=== PATIENT | female | born 1995 | race Caucasian/White ===

== ENCOUNTER → 2019-05-25 09:58 | Outpatient (CLI) | payer MEDICAID, SELFPAY | PROVIDERS: Visit Provider Obstetrics & Gynecology | DX: Z32.00 Encounter for pregnancy test, result unknown (principal) | CPT/HCPCS: 36415; 84702 ==

== ENCOUNTER → 2019-06-09 10:47 | Outpatient (CLI) | payer MEDICAID, SELFPAY ==
--- NOTE | 2019-06-09 10:48 | US_ITS ---
PROCEDURE: US OB TRANSVAGINAL CLINICAL INDICATION: US OB Dates COMPARISON: PTV US PELVIS-TRANSVAGINAL ONLY from 07/08/2016 FINDINGS: An intrauterine gestational sac is present with a pole with a crown-rump length of 2.81cm correlating to gestational age of 9weeks 5days. heart tones are present with an FHR of 179bpm. Yolk sac is noted. The uterus is retroverted. No adnexal mass evident. IMPRESSION: Live IUP at 9 weeks 5 days Estimated due date by Ultrasound is 01/07/2020 Dictated by: Oscar Rubio MD 06/09/2019 15:31 Electronically signed by Oscar Rubio MD in [facility] 06/09/2019 15:31
== END ==
PROVIDERS: PCP Nurse Practitioner Family; Visit Provider Obstetrics & Gynecology
DX: O26.841 Uterine size-date discrepancy, first trimester (principal)
CPT/HCPCS: 76817

== ENCOUNTER → 2019-06-15 10:56 | Outpatient (CLI) | payer MEDICAID, SELFPAY ==
[2019-06-15 11:28] LABS: Basophils % 0.3 % (0.1-2.0); Eosinophils # 0.1 K/mm3 (0.0-0.4); Eosinophils % 0.6 % (0.1-12.0); Hemoglobin 13.8 g/dL (12.2-16.2); Lymphocytes # 1.5 K/mm3 (0.7-4.5); Lymphocytes % 11.5 % (10-50); Mean Corpuscular HGB Conc 34.4 g/dL (31.8-35.4); Mean Corpuscular Hemoglobin 30.4 pg (27.0-31.2); Mean Corpuscular Volume 88.3 fl (81-99); Mean Platelet Volume 8.7 fl (7.4-10.4); Monocytes # 0.5 K/mm3 (0.1-1.0); Neutrophils # 10.6 K/mm3 (1.8-7.8); Neutrophils % 83.5 % (37.0-80.0); Platelet Count 239 K/mm3 (142-424); Red Blood Count 4.53 M/mm3 (4.20-5.40); Red Cell Distribution Width 12.6 % (11.5-17.5); White Blood Count 12.6 K/mm3 (4.8-10.8)
[2019-06-16 05:50] LABS: HIV Screen 4th Generation wRfx Non Reactive (Non Reactive)
[2019-06-16 10:31] LABS: Hepatitis B Surface Antigen Negative (Negative); Hepatitis C Antibody <0.1 s/co ratio (0.0-0.9)
[2019-06-16 13:58] LABS: Rapid Plasma Reagin Ab Titer Non Reactive (NonRea<1:1)
== END ==
PROVIDERS: Visit Provider Obstetrics & Gynecology
DX: Z34.90 Encounter for supervision of normal pregnancy, unspecified, unspecified trimester (principal)
CPT/HCPCS: 36415; 85025; 86592; 86703; 86762; 86850; 87340; 87380; G0432

== ENCOUNTER 2019-10-19 21:27 | Emergency (ER) | payer MEDICAID, SELFPAY ==
--- NOTE | 2019-10-19 21:27 | ECG_ITS ---
APPROVED REPORT Exam: Resting ECG HR:97 bpm ECG Measurements Heart Rate 97 AXES FL 146 P 52 QRSd 82 QRS 57 QT 332 T 39 QTc 421 <Conclusion> Normal sinus rhythm Normal ECG Electronically signed by : Gautam Pearce, 10/22/2019 04:52:39
[2019-10-19 21:28] VITALS: BP 167/112; PULSE 110; RESP 16; TEMP 37.1; O2SAT 99; BMI 22.6
--- NOTE | 2019-10-19 21:28 | PC.NURSE ---
heart rate 151 via doppler
--- NOTE | 2019-10-19 21:47 | CT_ITS ---
PROCEDURE: CT HEAD/BRAIN WO CON CLINICAL INDICATION: seizure activity COMPARISON: CT HEAD/BRAIN WO CON from 02/06/2019 TECHNIQUE: Axial images obtained. All CT scans at the facility use one or more dose reduction, viz: automated exposure control, ma/kV adjustment per patient size (including targeted exams where dose is matched to indication, i.e. head), or iterative reconstruction technique. FINDINGS: No midline shift, mass effect, intracranial hemorrhage, hydrocephalus, or extra-axial fluid collection is evident. There is mild mucosal thickening of the ethmoid sinuses. The calvarium has an unremarkable appearance. No mastoid effusion. No sinus air-fluid level. IMPRESSION: No acute intracranial finding Dictated by: Oscar Rubio MD 10/20/2019 08:54 Electronically signed by Oscar Rubio MD in [facility] 10/20/2019 08:54
[2019-10-19 21:52] LABS: Appearance,Urine CLEAR (Clear); Bilirubin,Urine Negative (Negative); Blood, Urine Negative (Negative); Color,Urine YELLOW (Yellow); Glucose,Urine (UA) Negative (Negative); Ketones,Urine Negative (Negative); Leukocyte Esterase,Urine 1+ (Negative); Microscopic, Urine URINE MICROSCOPIC (MICROSCOPIC); Nitrate,Urine Negative (Negative); Protein,Urine Negative (Negative)
[2019-10-19 21:56] LABS: Bacteria,Urine Trace /lpf; Squamous Epithelial Cell,Urine Occasional #/hpf (0-5)
[2019-10-19 21:56] LABS: Chloride 106 mmol/L (98-107); Potassium 3.5 mmoL/L (3.5-5.1); Sodium 136 mmol/L (136-145)
[2019-10-19 21:59] LABS: Alanine Aminotransferase 11 U/L (12-78); Albumin Level 3.5 g/dl (3.5-5.0); Albumin/Globulin Ratio 1.1 (1.1-1.8); Alkaline Phosphatase 59 U/L (38-126); Anion Gap 11.5 mEq/L (5-15); Aspartate Amino Transferase 18 U/L (14-36); Bilirubin,Total 0.4 mg/dl (0.2-1.3); Blood Urea Nitrogen 9 mg/dl (7-17); Carbon Dioxide 22 mmol/L (22.0-30.0); Creatinine Clearance Estimated 149 mL/min (50-200); Estimated Glomerular Filt Rate 126 ml/min (>60); GFR (African American) 153 ML/MIN (>60); Globulin 3.1 g/dL (1.3-3.2); Total Protein,Serum 6.6 g/dl (6.3-8.2)
[2019-10-19 22:00] LABS: Calcium 8.9 mg/dl (8.4-10.2); Glucose 80 mg/dl (74-100); Lactic Acid 0.9 mmol/L (0.7-2.1)
[2019-10-19 22:04] LABS: Benzodiazepines Screen,Urine Negative ng/ml (<200)
[2019-10-19 22:04] LABS: Basophils % 0.4 % (0.1-2.0); Eosinophils # 0.2 K/mm3 (0.0-0.4); Eosinophils % 1.2 % (0.1-12.0); Hematocrit 32.7 % (37.0-47.0); Hemoglobin 11.3 g/dL (12.2-16.2); Lymphocytes # 2.5 K/mm3 (0.7-4.5); Lymphocytes % 19.8 % (10-50); Mean Corpuscular HGB Conc 34.7 g/dL (31.8-35.4); Mean Corpuscular Hemoglobin 30.5 pg (27.0-31.2); Mean Corpuscular Volume 88.1 fl (81-99); Mean Platelet Volume 8.1 fl (7.4-10.4); Monocytes # 0.6 K/mm3 (0.1-1.0); Monocytes % 4.6 % (1.7-9.3); Neutrophils # 9.5 K/mm3 (1.8-7.8); Neutrophils % 74.1 % (37.0-80.0); Platelet Count 226 K/mm3 (142-424); White Blood Count 12.8 K/mm3 (4.8-10.8)
[2019-10-19 22:05] LABS: Amphetamine/Metha Screen,Urine Negative ng/ml (<1000)
[2019-10-19 22:06] LABS: Barbiturates Screen,Urine Negative ng/ml (<200)
[2019-10-19 22:07] LABS: Cannabinoid Screen,Urine Negative ng/ml (<50); Cocaine Screen,Urine Negative ng/ml (<300)
[2019-10-19 22:08] LABS: Methadone Screen,Urine Negative ng/ml (<300); Opiate Screen,Urine Negative ng/ml (<300)
[2019-10-19 22:09] LABS: Phencyclidine Screen,Urine Negative ng/ml (<25)
[2019-10-19 22:21] LABS: Troponin I < 0.01 ng/ml (0.00-0.034)
[2019-10-19 22:23] VITALS: BP 129/63; PULSE 98; RESP 18; O2SAT 95
[2019-10-19 22:31] LABS: Valproic Acid, (Depakene) < 10.0 ug/ml (50-100)
--- NOTE | 2019-10-19 22:35 | HMH.EDSEIZ ---
ED Disposition Clinical Impression: Epileptic seizure Qualifiers: Epilepsy type: unspecified Intractability: not intractable Status epilepticus: without status epilepticus Qualified Code(s): G40.909 - Epilepsy, unspecified, not intractable, without status epilepticus Qualifiers: Weeks of gestation: 36 weeks Qualified Code(s): Z3A.36 - 36 weeks gestation of Disposition: Home, Self-Care Condition on Discharge: Good Instructions: DI for Seizure Disorder -- Adult Additional Instructions: call ob and pcp in am Referrals: Provider,Referral, [Primary Care Provider] - - Critical Care Critical Care Time: No Attestation: On 10/19/19, the high probability of a clinically significant, sudden or life threatening deterioration of the following system(s) required my full and direct attention, intervention and personal management. The time I documented below is in addition to time spent performing reported procedures but includes the following listed in this critical care notation. Medical Decision Making - Medical Records Medical records reviewed: Yes: I reviewed the patient's medical records. - Jassi Inquiry Pt receiving controlled substance: No Vital Signs: 10/19/19 21:28 10/19/19 22:23 10/19/19 22:42 Temperature 98.7 F Temperature Source Oral Pulse Rate [Left Radial] 110 H 98 H 83 Respiratory Rate 16 18 18 Blood Pressure [Right Arm] 167/112 H 129/63 130/65 Blood Pressure Mean [Right Arm] 130 85 86 Blood Pressure Source [Right Arm] Automatic Cuff Blood Pressure Position [Right Arm] Sitting 02 Sat by Pulse Oximetry 99 95 100 Oxygen Delivery Method Room Air Room Air Room Air - Lab Data Lab results reviewed: Yes: I reviewed the patient's lab results. Lab Results 10/19/19 21:30: WBC 12.8 H, RBC 3.70 L, Hgb 11.3 L, Hct 32.7 L, MCV 88.1, MCH 30.5, MCHC 34.7, RDW 13.0, Plt Count 226, MPV 8.1, Neut % (Auto) 74.1, Lymph % (Auto) 19.8, [place] % (Auto) 4.6, Eos % (Auto) 1.2, Baso % (Auto) 0.4, Neut # (Auto) 9.5 H, Lymph # (Auto) 2.5, [place] # (Auto) 0.6, Eos # (Auto) 0.2, Baso # (Auto) 0.0 10/19/19 21:30: Sodium 136, Potassium 3.5, Chloride 106, Carbon Dioxide 22, Anion Gap 11.5, BUN 9, Creatinine 0.60, Estimated Creat Clear 149, Estimated GFR 126, Est GFR ( Amer) 153, Glucose 80, Calcium 8.9, Total Bilirubin 0.4, AST 18, ALT 11 L, Alkaline Phosphatase 59, Troponin I < 0.01, Total Protein 6.6, Albumin 3.5, Globulin 3.1, Albumin/Globulin Ratio 1.1 10/19/19 21:30: Lactate 0.9 10/19/19 21:30: Total Valproic Acid < 10.0 L 10/19/19 21:38: Urine Color Yellow, Urine Appearance Clear, Urine pH 6.0, Ur Specific [place] 1.020, Urine Protein Negative, Urine Glucose (UA) Negative, Urine Ketones Negative, Urine Blood Negative, Urine Nitrate Negative, Urine Bilirubin Negative, Urine Urobilinogen 1.0, Ur Leukocyte Esterase 1+ A, Urine WBC 3-5, Ur Squamous Epith Cells Occasional, Urine Bacteria Trace 10/19/19 21:38: Urine Opiates Screen Negative, Urine Methadone Screen Negative, Ur Barbituates Screen Negative, Ur Phencyclidine Scrn Negative, Ur Amphetamines Screen Negative, U Benzodiazepines Scrn Negative, Urine Cocaine Screen Negative, U Marijuana (THC) Screen Negative Result diagrams: 10/19/19 21:30 10/19/19 21:30 Orders (Tests/Meds): ED MEDICATIONS Generic Name Dose Route Start Last Admin Trade Name Norman PRN Reason Stop Dose Admin Sodium Chloride 1,000 mls @ 999 mls/hr 10/19/19 22:00 10/19/19 22:20 Sod Chlor 0.9% 1000ml Bag IV 10/19/19 23:00 999 mls/hr .Q1H1M [place] Administration ORDERS Category Date Time Status CT head/brain wo con Stat Cat Scan 10/19/19 21:47 Taken Carbamazepine (Tegretol) Stat Lab 10/19/19 21:30 Received Troponin I Q3H Lab 10/20/19 01:00 Ordered Troponin I Q3H Lab 10/20/19 04:00 Ordered Blood Culture Stat Micro 10/19/19 21:30 Received Urine Culture Stat Micro 10/19/19 21:38 Received - CT Data CT Scan: Head Time Received: 22:[address] Reviewed
[2019-10-19 22:42] VITALS: BP 130/65; PULSE 83; RESP 18; O2SAT 100
[2019-10-19 22:56] LABS: Carbamazepine (Tegretol) < 3.0 ug/ml (4.0-12.0)
[2019-10-19 23:09] VITALS: BP 132/89; PULSE 92; RESP 16; TEMP 36.4; O2SAT 97
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
== END 2019-10-19 23:14 | disposition home or self-care (01) ==
PROVIDERS: Emergency Provider Emergency Medicine
DX: G40.909 Epilepsy, unspecified, not intractable, without status epilepticus (principal); Z3A.36 36 weeks gestation of pregnancy
CPT/HCPCS: 70450; 80053; 80156; 80164; 80305; 81001; 83605; 84484; 85025; 87040; 87086; 87088; 87186; 93005; 96365; 99284

== ENCOUNTER 2022-09-16 14:03 | Emergency (ER) | payer OTHER, MEDICAID, SELFPAY ==
[2022-09-16 14:03] VITALS: BP 139/84; PULSE 125; RESP 17; TEMP 36.9; O2SAT 100; BMI 20.7
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
[2022-09-16 15:58] VITALS: BP 113/77; PULSE 104; RESP 19; TEMP 36.9; O2SAT 99
== END 2022-09-16 15:59 | disposition home or self-care (01) ==
PROVIDERS: Emergency Provider Emergency Medicine; PCP Nurse Practitioner Family
DX: S16.1XXA Strain of muscle, fascia and tendon at neck level, initial encounter (principal); R51.9 Headache, unspecified; R42 Dizziness and giddiness; Z87.891 Personal history of nicotine dependence; V47.0XXA Car driver injured in collision with fixed or stationary object in nontraffic accident, initial encounter
CPT/HCPCS: 72040; 96374; 99284

== ENCOUNTER 2022-09-19 12:28 | Emergency (ER) | payer MEDICAID, SELFPAY ==
[2022-09-19 12:35] VITALS: BP 144/91; PULSE 88; RESP 18; O2SAT 100; BMI 20.7
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
[2022-09-19 12:53] LABS: Appearance,Urine CLEAR (Clear); Bilirubin,Urine Negative (Negative); Blood, Urine TRACE-I (Negative); Color,Urine YELLOW (Yellow); Glucose,Urine (UA) Negative (Negative); Ketones,Urine Negative (Negative); Leukocyte Esterase,Urine 2+ (Negative); Microscopic, Urine URINE MICROSCOPIC (MICROSCOPIC); Nitrate,Urine POSITIVE (Negative); PH,Urine 5.5 (5.0-8.5); Protein,Urine TRACE (Negative); Specific Gravity, Urine 1.025 (1.005-1.030); Urobilinogen,Urine 0.2 EU/dl (0.2)
[2022-09-19 13:00] VITALS: BP 143/95; PULSE 82; O2SAT 100
[2022-09-19 13:05] LABS: Bacteria,Urine 1+ /lpf
[2022-09-19 13:18] LABS: Basophils % 0.3 % (0.1-2.0); Eosinophils # 0.1 K/mm3 (0.0-0.4); Eosinophils % 1.2 % (0.1-12.0); Hematocrit 36.4 % (37.0-47.0); Hemoglobin 12.2 g/dL (12.2-16.2); Lymphocytes # 1.7 K/mm3 (0.7-4.5); Lymphocytes % 17.6 % (10-50); Mean Corpuscular HGB Conc 33.4 g/dL (31.8-35.4); Mean Corpuscular Hemoglobin 29.7 pg (27.0-31.2); Mean Platelet Volume 8.2 fl (7.4-10.4); Monocytes # 0.6 K/mm3 (0.1-1.0); Monocytes % 6.5 % (1.7-9.3); Neutrophils # 7.2 K/mm3 (1.8-7.8); Neutrophils % 74.4 % (37.0-80.0); Platelet Count 384 K/mm3 (142-424); Red Blood Count 4.09 M/mm3 (4.20-5.40); Red Cell Distribution Width 12.7 % (11.5-17.5); White Blood Count 9.6 K/mm3 (4.8-10.8)
[2022-09-19 13:35] LABS: Chloride 100 mmol/L (98-107); Sodium 139 mmol/L (136-145)
--- NOTE | 2022-09-19 13:35 | PC.NURSE ---
rounded on pt nothing needed at this time family at bedside
[2022-09-19 13:36] LABS: HCG Qualitative, Serum Negative (Negative)
[2022-09-19 13:37] LABS: Alanine Aminotransferase 20 U/L (12-78); Aspartate Amino Transferase 27 U/L (14-36); Bilirubin,Total 0.3 mg/dl (0.2-1.3); Blood Urea Nitrogen 10 mg/dl (7-17); Creatinine Clearance Estimated 109 mL/min (50-200); Estimated Glomerular Filt Rate 88 ml/min (>60); GFR (African American) 107 ML/MIN (>60)
[2022-09-19 13:38] LABS: Albumin Level 4.2 g/dl (3.5-5.0); Albumin/Globulin Ratio 1.2 (1.1-1.8); Alkaline Phosphatase 75 U/L (38-126); Carbon Dioxide 28 mmol/L (22.0-30.0); Globulin 3.6 g/dL (1.3-3.2); Glucose 71 mg/dl (74-100); Lipase 24 U/L (23-300); Total Protein,Serum 7.8 g/dl (6.3-8.2)
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
[2022-09-19 15:28] VITALS: BP 138/72; PULSE 82; RESP 18; TEMP 36.7; O2SAT 97
== END 2022-09-19 15:36 | disposition home or self-care (01) ==
PROVIDERS: Emergency Provider Emergency Medicine; PCP Nurse Practitioner Family
DX: N12 Tubulo-interstitial nephritis, not specified as acute or chronic (principal); R10.10 Upper abdominal pain, unspecified; R11.2 Nausea with vomiting, unspecified
CPT/HCPCS: 74177; 80053; 81001; 83690; 84703; 85025; 87086; 87088; 87186; 96374; 99284; 99285; J0696; Q9967

== ENCOUNTER 2023-09-03 20:14 | Emergency (ER) | payer MEDICAID, SELFPAY ==
[2023-09-03 21:21] VITALS: BP 144/94; PULSE 100; RESP 18; TEMP 36.8; O2SAT 100; BMI 22.6
--- OUTSIDE RECORDS SUMMARY | 2023-09-03 21:31 | XMS_ITS | Continuity of Care Document ---
Author Name Unknown Organization [facility] Address [address] [place] [address]- Care Team Providers Care Psychology Department Chair Name Role Phone PHY, NOT LISTED Primary Care Physician Unavailab le Encounter [facility] [id number] Date(s): 02/10/23 - 02/10/23 [facility] [address] [place] [address]- [place] Encounter Diagnosis UTI (urinary tract infection)(Discharge Diagnosis) - 02/10/23 Pyelonephritis, acute(Discharge Diagnosis) - 02/10/23 Discharge Disposition: OP Self Care or Home Attending Physician: JAY HYATT MD-EMR Admitting Physician: JAY HYATT MD-EMR Referring Physician: TAMERA, SELF REFERRED Allergies, Adverse Reactions, Alerts Substance Reaction Severity Status erythromycin Active Assessment and Plan Extracted from: Title:Addendum *ED Author:CONSTANCE FARIAS MD-EMR Date:02/10/23 Basic Information Addendum: Pertinent history: Follow up on imaging results. Reexamination/ Reevaluation Notes: Attending did read x-ray read and felt abscess is either gone or small bowel scarring from it no abscess present now patient does have concern for some Cesario patient with no nausea vomiting still having some pain so we will give small pain medicine understands importance of returning immediately if unable to take oral liquids or antibiotics or if starts running a fever went ahead and gave IV Rocephin here and send out cefdinir Zofran and meloxicam for the pain understands precautions to return her and her significant other. Impression and Plan Diagnosis UTI (urinary tract infection) - Discharge, Medical Pyelonephritis, acute - Discharge, Emergency medicine, Medical Plan Condition: Stable. Disposition: Discharged Admit/Transfer/Discharge: Discharge (Order): Start: 02/10/2023 23:25 EDT, Discharge to: Home. Prescriptions: Prescription [facility]: [facility] 5 mg-325 mg oral tablet (Prescribe): 1 Tab, Oral, Q6H, PRN: for pain, 12 Tab, 0 Refill(s) Zofran ODT 4 mg oral tablet, disintegrating (Prescribe): 4 mg, 1 Tab, Oral, TID, 12 Tab, 0 Refill(s). Patient was given the following educational materials: Urinary Tract Infection, Adult, Pyelonephritis, Adult, [id number]. Follow up with: [facility] - Primary Care Referral Line Within 2 to 3 days Call for follow up appointment; NOT LISTED TAMERA Within 2 to 3 days; TUAN WEBB Within 2 to 3 days; f/u pmd as needed; return to ed for worsening symptoms; take medication as prescribed; Your blood pressure is elevated today f/u with pmd In 2 days 02/12/2023. Counseled: Patient, Regarding diagnostic results, Regarding prescription, Pre-hypertension/Hypertension: The patient has been informed that they may have pre-hypertension or Hypertension based on a blood pressure reading in the emergency department. I recommend that the patient call the primary care provider listed on their discharge instructions or a physician of their choice this week to arrange follow up for further evaluation of possible pre-hypertension or Hypertension.. Notes: With use of voice recognized system such as Hylete, many words are nonsensical and jumbled, I try to correct them when I see them but still some are missed. Addendum Teaching-Supervisory Addendum-Brief Vital signs: Basic Oxygen Information 02/10/2023 22:58 EDT Hand off Report Received From La Cox RN Handoff Reported to Lynnette Sifuentes, James SCHMIDT [facility] Handoff Method Bedside/Face to face Valuables[employer]ongings Inventoried/Reviewed N/A Handoff and Chart Check Reviewed All Active Orders, Reviewed Overdue Tasks, Reviewed Pending Diagnostics (Labs & Radiology), Reviewed Level of Care and Code Status, Patient Location Updated as Appropriate, Discussed Patient and Family Centered Care, Discussed Notable Assessment Findings and Results Nursing Handoff Form Nursing Handoff Form Nursing Notes Nursing Handoff 02/10/2023 22:57 EDT Hand off Report Received From La Cox RN Handoff Reported to Lynnette Sifuentes, Agency RN [facility] Handoff Method Bedside/Face to face Shantals[employer]zel Inventoried/Reviewed N/A Handoff and Chart Check Reviewed All Active Orders, Reviewed Overdue Tasks, Reviewed Pending Diagnostics (Labs & Radiology), Reviewed Level of Care and Code Status, Patient Location Updated as Appropriate, Discussed Patient and Family Centered Care, Discussed Notable Assessment Findings and Results Nursing Handoff Form Nursing Handoff Form Nursing Notes Nursing Handoff 02/10/2023 22:48 EDT MEWS Score 2 MEWS Change 2 02/10/2023 22:00 EDT Elisha Motor Response Obey commands Leisha Verbal Response Oriented Franklin Eye Opening Response Spontaneous Elisha Coma Score 15 Peripheral Pulse Rate 86 bpm Heart Rate Monitored 85 bpm Respiratory Rate 24 Breaths/Min HI Oxygen Saturation 99 % 02/10/2023 21:26 EDT ibuprofen 600 mg mg 02/10/2023 21:00 EDT Peripheral Pulse Rate 99 bpm Heart Rate Monitored 95 bpm Respiratory Rate 20 Breaths/Min Oxygen Saturation 100 % 02/10/2023 20:50 EDT cefTRIAXone 2 Gram Gram 02/10/2023 20:[address] Abdomen Pelvis W CT Abdomen Pelvis W 02/10/2023 20:40 EDT iopamidol 100 mL mL 02/10/2023 20:29 EDT Pain Assessment Follow-up assessment Pain Improved by Intervention Yes SIRS Indicator Signs/Symptms Present/New Heart Rate GREATER than 90 beats per minute, WBC GREATER than 12,000/??L Two or More Signs/Symptms SIRS Indicator Yes (Two or more signs and symptoms SIRS Indicators) Suspected or Confirmed Infection Urinary tract infection Positive for History of Infection Yes Sepsis Screen is Positive Yes Organ Dysfunction Vital Signs/Labs Organ Dysfunction Vital Signs/Labs SIRS Screening Vital Signs/Labs SIRS Screening Vital Signs/Labs Pain Assessment-Text Pain Assessment Sepsis Screening Tool-Text Sepsis Screening Tool 02/10/2023 20:28 EDT MEWS Score 0 MEWS Change 0 02/10/2023 20:26 EDT Estimated Creatinine Clearance 87.44 mL/Min 02/10/2023 20:25 EDT Cardiovascular Symptoms None Skin Description Dry Skin Temperature Warm Genitourinary Symptoms Flank Pain - Right Side, Hematuria Urine Description Cloudy Urine Color Yellow Level of Consciousness Alert, Awake Orientation Oriented x 4 Neurological Symptoms None Affect/Behavior Appropriate, Calm, Cooperative Elisha Motor Response Obey commands Franklin Verbal Response Oriented Elisha Eye Opening Response Spontaneous Franklin Coma Score 15 Shift Summary Note Shift Summary Note Respiratory Symptoms No Respiratory Symptoms (No cough or shortness of breath) Respiratory Pattern Description Regular Respiration Description Even and Unlabored Oxygen Therapy Mode Room air ED Assessment Form ED Assessment Form ED Nursing Record ED Assessment 02/10/2023 20:20 EDT ED Physician Notes Abdominal pain 02/10/2023 20:19 EDT MEWS Change 0 02/10/2023 20:19 EDT MEWS Score 0 02/10/2023 20:18 EDT 02/10/2023 19:45 Over the needle Antecubital Right 20 gauge Peripheral Catheter/Needle Length: 1 Inch Peripheral IV Activity: Blood drawn with insertion, Saline lock, Start Peripheral IV Inserted by: La Cox RN Peripheral IV Number of Attempts: 1 Peripheral IV Skin Preparation: Chlorhexadine Peripheral IV Site Assessment: IV site WDL IV Site/Line Care: Secured with tape IV Dressing Activity: Applied Peripheral IV Dressing: Antimicrobial patch, Occlusive Peripheral IV Dressing Condition: Dry, Intact 02/10/2023 20:17 EDT POC HCG Wholeblood Completed Yes POC Lactic Acid Completed Yes Site of Blood Draw Specimen by Nursing IV insertion Site of Blood Draw Specimen by Nursing IV insertion ED HCG Wholeblood Form ED HCG Wholeblood Form ED POC Lactic Acid Form ED POC Lactic Acid Form ED Record ED POC - HCG Wholeblood ED Record ED POC - Lactic Acid 02/10/2023 20:03 EDT Pain Intensity 10 HYDROmorphone 0.5 mg mg ondansetron 4 mg mg Sodium Chloride 0.9% 1,000 mL mL 02/10/2023 20:00 EDT Urine Type. U CleanCatch Urine Color Yellow Urine Appearance SL CLOUDY Urine Specific [place] 1.021 Urine pH Dipstick 6 Urine Leukocyte Esterase Large Urine Nitrite Positive mg/dL Urine Protein Dipstick 30 mg/dL mg/dL Urine Glucose Dipstick Normal mg/dL Urine Ketones Dipstick Negative mg/dL Urine Urobilinogen Dipstick <2.0 mg/dL Urine Bilirubin Dipstick Negative mg/dL Urine Blood Dipstick Trace mg/dL Ur RBC 15-29 Ur WBC 50+ Ur Bacteria 2+ Ur Mucous Present Ur Squamous Epithelial Cells 0-4 Peripheral Pulse Rate 78 bpm Heart Rate Monitored 77 bpm Respiratory Rate 16 Breaths/Min Systolic Blood Pressure 119 mmHg Diastolic Blood Pressure 70 mmHg Mean Arterial Pressure (MAP) 86 mmHg Mean Arterial Pressure (MAP)-BMDI 81 Oxygen Saturation 100 % Oxygen Therapy Mode Room air 02/10/2023 19:58 EDT B-HCG WB Quant POC <5 mmol/L NA B-HCG WB Interp POC Negative Device SN [id number] Meat Grader [id number] 02/10/2023 19:54 EDT Sodium Level 135 mmol/L LOW Potassium Level 3.4 mmol/L LOW Chloride Level 102 mmol/L Carbon Dioxide Level 28.0 mmol/L Anion Gap 5.0 Glucose Level 90 mg/dL Blood Urea Nitrogen 11 mg/dL CREATININE 0.92 mg/dL eGFR 89 mL/min/1.73m2 Bun/Creatinine 12.0 Calcium Level 9.6 mg/dL Protein Total 7.7 Gram/dL Albumin Level 4.8 Gram/dL Globulin 3 NA A/G Ratio 1.7 Bilirubin Total 0.90 mg/dL Alk Phos 111 Units/Liter HI AST 45 Units/Liter HI ALT 38 Units/Liter HI Lactic Acid POC 0.65 mmol/L LOW WBC 17.0 x10(3)/uL HI RBC 4.50 x10(6)/uL Hgb 13.4 Gram/dL Hct 39.4 % MCV 87.6 fL MCH 29.6 pg MCHC 33.9 Gram/dL Platelet Count 243 x10(3)/uL MPV 9.4 fL RDW 13.8 % Device SN [id number] Meat Grader [id number] 02/10/2023 19:34 EDT Nurse Collect Order Detail 3.00 02/10/2023 19:34 EDT Nurse Collect Order Detail 3.00 Nurse Collect Order Detail 3.00 02/10/2023 19:33 EDT Nurse Collect Order Detail 3.00 Nurse Collect Order Detail 3.00 Nurse Collect Order Detail 3.00 02/10/2023 19:33 EDT Nurse Collect Order Detail 3.00 Nurse Collect Order Detail 3.00 Nurse Collect Order Detail 3.00 02/10/2023 19:33 EDT Nurse Collect Order Detail 3.00 02/10/2023 19:33 EDT Nurse Collect Order Detail 3.00 02/10/2023 19:31 EDT Nurse Collect Order Detail 3.00 02/10/2023 19:31 EDT Nurse Collect Order Detail 3.00 02/10/2023 19:31 EDT Nurse Collect Order Detail 3.00 02/10/2023 19:31 EDT Nurse Collect Order Detail 3.00 Nurse Collect Order Detail 3.00 02/10/2023 19:30 EDT Nurse Collect Order Detail 3.00 02/10/2023 19:29 EDT Consent Forms Consent Forms 02/10/2023 19:28 EDT [facility] Exclusion Criteria None of the above JHFRAT Fall Age Under 60 years FR Fall History No falls within 6 months before admission [facility] Elimination, Bowel and Urine None of the below FR Fall Medications No high fall risk drugs [facility] Fall Patient Care Equipment None present [facility] Fall Mobility None of the below FR Fall Cognition None of the below FR Fall Risk Score 0 [facility] Fall Risk Level 0-5 Low Risk HDFS Age Adult [place] Fall Interventions Adequate lighting, Bed in low position, Call device within reach, Fall prevention handout/education per facility policy, Frequent orientation to call device, Frequent orientation to surroundings, Hourly comfort/safety rounds, Non-Slip footwear, Personal items within reach, Reinforced to call for assistance before getting out of bed, Room free of clutter/spills, Wheels locked, Wires/Cords secured Safety Checks 2 Siderails up, Bed in low position/brakes locked, Call light within reach of patient, Hearing aide within reach, ID band on and verified, Non-skid footwear, Room clear of debris, Tray table within reach, Wheels locked Current Home Treatments None Infectious Disease History None Preferred Language Libyan Preferred Communication Mode Verbal DASA Situational Aggression Indicators None DASA Score 0 DASA Risk Level Low risk DV_Pt appropriate for screening Yes Do You Feel Unsafe in Your Current Declines to discuss Is There a Partner From a Previous Relationship Declines to discuss Have You Been Hit, Kicked, Punched Declines to discuss Injuries Related Partner Violence Declines to discuss Arise to Safety Indicators 0 Possible Signs of Human Trafficking No Teaching Method Demonstration, Explanation Ed-Plan of Care Verbalizes understanding SN - Allergies - Allergies Reviewed Yes Information Obtained From Patient Tetanus Immunization Unknown Covid Vaccine Series Completed Unable to assess Sex Female DASA Screening for VIP Form DASA Screening for VIP Form ED Triage Form ED Triage Form Gender Identity Female Influenza Immunization, Current Season Unknown Pneumonia Immunization Received Unknown Prev Vaccines from Immunization Schedule Previous Vaccines from Immunization Schedule Preferred Pronouns she/ her/ hers ED Nursing Record ED History & Screenings DASA Screening for VIP - Text DASA (Dynamic Appraisal of Situational Aggression) Nursing (sensitive) ED Domestic Violence Screening 02/10/2023 19:05 EDT MEWS Score 0 02/10/2023 19:05 EDT Estimated Creatinine Clearance 101.83 mL/Min 02/10/2023 19:00 EDT Thoughts of Hurting/Killing Someone No Transported to ED by Walk in Airway Assessment Open Skin Description Dry Skin Temperature Warm Triage BP Format SBP/DBP Triage Interventions None Tracking Acuity 3 - Urgent Family Contacted No Method of Triage Triage Transfer Patient No Is there a weapon in your possession No Received medications JAW SKINNER to ED No Triage Date/Time 02/10/2023 19:00 Height/Length, HONDURAN (ft) 5 ft Height/Length HONDURAN 5.98 Inch CLINICALHEIGHT 167.59 cm Weight Source, ED Standing scale Weight METRIC kg 67.0 kg CLINICALWEIGHT 67 kg Body Surface Area (BSA) 1.76 m2 Body Mass Index 23.9 kg/m2 [place] Body Weight 59 kg Chief Complaint Right sided flank pain radiating into lower back and blood in urine x3 days; Experiencing Infectious Disease Symptoms No symptoms Travel Outside [place] Within Last 30 Days No COVID 19: Patient has symptoms No Recent Exposure to Communicable Disease No Tuberculosis Symptoms No current symptoms Accompanied by Unaccompanied Elisha Motor Response Obey commands Elisha Verbal Response Oriented Franklin Eye Opening Response Spontaneous Franklin Coma Score 15 Status Patient denies in Last Year No Pain Intensity 10 Preferred Language Libyan Need Lab Labels Now No CSSRS Appropriate for Screening Yes CSSRS Wish to be No CSSRS Suicidal Thoughts No CSSRS Suicide Behavior Question No CSSRS Risk Score 0 CSSRS Risk Level No present indicators Respirations Unlabored SIRS Indicator Signs/Symptms Present/New None Two or More Signs/Symptms SIRS Indicator No Suspected or Confirmed Infection None Positive for History of Infection No Temperature Source Oral Temperature, Fahrenheit 97.8 Deg F Clinical Temperature, C 36.6 Deg C Peripheral Pulse Rate 95 bpm Respiratory Rate 16 Breaths/Min Systolic Blood Pressure 119 mmHg Diastolic Blood Pressure 82 mmHg Oxygen Saturation 100 % Oxygen Therapy Mode Room air SN - Allergies - Allergies Reviewed Yes SN - Allergies - Allergies Reviewed Yes Information Obtained From Patient Treatments Prior to Arrival None ED Triage Form ED Triage Form Mode of Arrival PAT Ambulatory Tracking Group ED ED Nursing Record ED Triage 02/10/2023 18:51 EDT Nurse Collect Order Detail 3.00 Nurse Collect Order Detail 3.00 . Extracted from: Title:Abdominal pain Author:JAY HYATT M D-EMR Date:02/10/23 Basic Information History source: Patient. Arrival mode: Private vehicle. History limitation: None. Additional information: Chief Complaint from Nursing Triage Note : Chief Complaint 02/10/2023 19:00 EDT Chief Complaint Right sided flank pain radiating into lower back and blood in urine x3 days; . History of Present Illness 27 yo F presents to the ED urinary frequency, fever, right sided abdominal/side pain, and n/v. Symptoms started mildly 3 days ago and progressively worsened. She has h/o of a kidney infection with abscess and was admitted at that time for abx. No surgery was performed and d/c with oral abx, which she did not finish the course. This reminds her of her previously pain with that and so went to a local [facility] and referred here as her urine showed signs of infection. Denies any specific aggravating/relieving factors. Health Status Allergies: Allergic Reactions (Selected) Severity Not Documented Erythromycin- No reactions were documented.. Past Medical/ Family/ Social History Surgical history: Abnormal gallbladder function ([id number]).. Family history: No family history items have been selected or recorded.. Social history: Social & Psychosocial Habits Alcohol 11/16/2022 Alcohol Use History, Social Habits Yes Substance Abuse 11/16/2022 Recreational Drug Use History No Recreational Drug Use Last 12 Months No Tobacco 11/16/2022 Smoking Status Never smoker . Problem list: Active Problems (1) No Chronic Problems . Physical Examination Vital Signs Vital Signs/Vital Measures 02/10/2023 20:00 EDT Peripheral Pulse Rate 78 bpm Heart Rate Monitored 77 bpm Respiratory Rate 16 Breaths/Min Systolic Blood Pressure 119 mmHg Diastolic Blood Pressure 70 mmHg Mean Arterial Pressure (MAP) 86 mmHg Mean Arterial Pressure (MAP)-BMDI 81 Oxygen Saturation 100 % Oxygen Therapy Mode Room air 02/10/2023 19:00 EDT Franklin Motor Response Obey commands Franklin Verbal Response Oriented Franklin Eye Opening Response Spontaneous Franklin Coma Score 15 Temperature Source Oral Temperature, Fahrenheit 97.8 Deg F Clinical Temperature, C 36.6 Deg C Peripheral Pulse Rate 95 bpm Respiratory Rate 16 Breaths/Min Systolic Blood Pressure 119 mmHg Diastolic Blood Pressure 82 mmHg Oxygen Saturation 100 % Oxygen Therapy Mode Room air . General: Alert, mild distress. Skin: Warm, dry, pink. Head: Normocephalic, atraumatic. Cardiovascular: Regular rate and rhythm. Respiratory: Lungs are clear to auscultation, respirations are non-labored, BS equal bilaterally. Gastrointestinal: Soft, Non distended, Tenderness: Mild, right upper quadrant, right lower quadrant, Guarding: Negative, Rebound: Negative. Back: Nontender. Musculoskeletal: Normal ROM, normal strength, no tenderness, no deformity. Neurological: No focal neurological deficit observed. Psychiatric: Cooperative. Medical Decision Making Rationale: concerns with history would be for recurrence of pyelo/abscess as she did not finish h er previous abx course. will do infectious labs and cultures and do CT abd/pelvis to evaluate for possible renal abscess. given dilaudid and zofran during work-up.. Results review: Lab results : Lab Results 02/10/2023 20:00 EDT Urine Type. U CleanCatch Urine Color Yellow Urine Appearance SL CLOUDY Urine Specific [place] 1.021 Urine pH Dipstick 6 Urine Leukocyte Esterase Large Urine Nitrite Positive mg/dL Urine Protein Dipstick 30 mg/dL mg/dL Urine Glucose Dipstick Normal mg/dL Urine Ketones Dipstick Negative mg/dL Urine Urobilinogen Dipstick <2.0 mg/dL Urine Bilirubin Dipstick Negative mg/dL Urine Blood Dipstick Trace mg/dL Ur RBC 15-29 Ur WBC 50+ Ur Bacteria 2+ Ur Mucous Present Ur Squamous Epithelial Cells 0-4 02/10/2023 19:58 EDT B-HCG WB Quant POC <5 mmol/L NA B-HCG WB Interp POC Negative 02/10/2023 19:54 EDT Sodium Level 135 mmol/L LOW Potassium Level 3.4 mmol/L LOW Chloride Level 102 mmol/L Carbon Dioxide Level 28.0 mmol/L Anion Gap 5.0 Glucose Level 90 mg/dL Blood Urea Nitrogen 11 mg/dL Creatinine Level 0.92 mg/dL eGFR 89 mL/min/1.73m2 Bun/Creatinine 12.0 Calcium Level 9.6 mg/dL Protein Total 7.7 Gram/dL Albumin Level 4.8 Gram/dL Globulin 3 NA A/G Ratio 1.7 Bilirubin Total 0.90 mg/dL Alk Phos 111 Units/Liter HI AST 45 Units/Liter HI ALT 38 Units/Liter HI Lactic Acid POC 0.65 mmol/L LOW WBC 17.0 x10(3)/uL HI RBC 4.50 x10(6)/uL Hgb 13.4 Gram/dL Hct 39.4 % MCV 87.6 fL MCH 29.6 pg MCHC 33.9 Gram/dL Platelet Count 243 x10(3)/uL MPV 9.4 fL RDW 13.8 % . Reexamination/ Reevaluation Time: 02/10/2023 22:00:00 . Notes: urine shows signs of infection. given dose of rocephin. reviewing records, pt had e.coli growng in previous culture and was sensative to cephalosporins reviewing CT, no obvious renal abscess noted, pending official read.. Impression and Plan Diagnosis UTI (urinary tract infection) - Discharge, Medical Plan Condition: Improved. Prescriptions: Prescription [facility]: cefdinir 300 mg oral capsule (Prescribe): 300 mg, 1 Cap, Oral, Q12H, for 10 Day(s), 20 Cap, 0 Refill(s). Patient was given the following educational materials: Urinary Tract Infection, Adult. Follow up with: ; [facility] - Primary Care Referral Line Within 2 to 3 days Call for follow up appointment. Counseled: Patient, Regarding diagnosis, Regarding diagnostic results, Regarding treatment plan, Regarding prescription, Patient indicated understanding of instructions. Diagnostic Tests Pending * Culture Blood 02/10/23 * Culture Blood 02/10/23 * Culture Urine 02/10/23 Medications cefdinir 300 mg oral capsule 300 mg 1 Cap, Oral, Cap, Q12H, X 10 Day(s), # 20 Cap, 0 Refill(s), Pharmacy: [facility]/pharmacy #[id number], 02/10/23 19:00:00 EDT, CLINICALHEIGHT, 67, kg, 02/10/23 19:00:00 EDT, CLINICALWEIGHT, 167.59 Start Date: 02/10/23 Stop Date: 02/20/23 Status: Ordered [facility] 5 mg-325 mg oral tablet 1 Tab, Oral, Tab, Q6H, PRN for pain, # 12 Tab, 0 Refill(s), Pharmacy: [facility]/pharmacy #[id number], 02/10/23 19:00:00 EDT, CLINICALHEIGHT, 67, kg, 02/10/23 19:00:00 EDT, CLINICALWEIGHT, 167.59 Start Date: 02/10/23 Status: Ordered Zofran ODT 4 mg oral tablet, disintegrating 4 mg 1 Tab, Oral, TID, # 12 Tab, 0 Refill(s), Pharmacy: [facility]/pharmacy #[id number], 167.59 cm, 02/10/23 19:00:00 EDT, CLINICALHEIGHT, 67, kg, 02/10/23 19:00:00 EDT, CLINICALWEIGHT Start Date: 02/10/23 Status: Ordered Mental Status 02/10/23 Level of Consciousness Alert, Awake Orientation Oriented x 4 Neurological Symptoms None Affect/Behavior Appropriate, Calm, Cooperative Problem List No Known Problems Procedures Procedure Date Related Diagnosis Body Site Status Abnormal gallbladder function Completed Results Laboratory List Name Date Urinalysis w Culture if Indicated 3 :BHCG WholeBlood POC 02/10/23 :Lactic Acid w/Reflex POC 02/10/23 CBC no Diff (Hemogram) 02/10/23 CMP Comprehensive Metabolic Panel 3 .Urinalysis Microscopic 02/10/23 Most recent to oldest [Reference Range]: 1 eGFR [>=60 mL/min/1.73m2] 89 mL/min/1.73 m2 1 (02/10/23 7:54 PM) Sodium Level [136-145 mmol/L] 135 mmol/L *LOW* (02/10/23 7:54 PM) Potassium Level [3.5-5.1 mmol/L] 3.4 mmo l/L *LOW* (02/10/23 7:54 PM) Chloride Level [98-110 mmol/L] 102 mmol/ L (02/10/23 7:54 PM) Carbon Dioxide Level [21.0-31.0 mmol/L] 28.0 mmol/L (02/10/23 7:54 PM) Anion Gap [2.0-11.0] 5.0 (02/10/23 7:54 PM) WBC [4.0-10.8 x10(3)/uL] 17.0 x10(3)/uL *HI* (02/10/23 7:54 PM) RBC [3.77-5.16 x10(6)/uL] 4.50 x10(6)/uL (02/10/23 7:54 PM) Hct [35.0-45.0 %] 39.4 % (02/10/23 7:54 PM) Hgb [12.0-16.0 Gram/dL] 13.4 Gram/dL (02/10/23 7:54 PM) Platelet Count [140-420 x10(3)/uL] 243 x 10(3)/uL (02/10/23 7:54 PM) MCH [25.6-32.2 pg] 29.6 pg (02/10/23 7:54 PM) MCHC [32.3-36.5 Gram/dL] 33.9 Gram/dL (02/10/23 7:54 PM) MCV [79.4-94.8 fL] 87.6 fL (02/10/23 7:54 PM) Bilirubin Total [0.30-1.00 mg/dL] 0.90 m g/dL (02/10/23 7:54 PM) A/G Ratio [1.0-1.7] 1.7 (02/10/23 7:54 PM) ALT [<=24 Units/Liter] 38 Units/Liter *HI* (02/10/23 7:54 PM) AST [13-39 Units/Liter] 45 Units/Liter *HI* (02/10/23 7:54 PM) Globulin 3 *NA* (02/10/23 7:54 PM) Alk Phos [34-104 Units/Liter] 111 Units/ Liter *HI* (02/10/23 7:54 PM) Bun/Creatinine [6.0-22.0] 12.0 (02/10/23 7:54 PM) Calcium Level [8.6-10.2 mg/dL] 9.6 mg/dL (02/10/23 7:54 PM) Glucose Level [74-109 mg/dL] 90 mg/dL (02/10/23 7:54 PM) Ur RBC [None] 15-29 *ABN* (02/10/23 8:00 PM) Blood Urea Nitrogen [7-25 mg/dL] 11 mg/d L (02/10/23 7:54 PM) Urine Nitrite [Negative mg/dL] Positive mg/dL *ABN* (02/10/23 8:00 PM) Urine Leukocyte Esterase [Negative] Larg e *ABN* (02/10/23 8:00 PM) Lactic Acid POC [0.90-1.70 mmol/L] 0.65 mmol/L *LOW* (02/10/23 7:54 PM) Urine Appearance SL CLOUDY *NA* (02/10/23 8:00 PM) Urine Glucose Dipstick Normal mg/dL *NA* (02/10/23 8:00 PM) Urine Blood Dipstick Trace mg/dL 2 *NA* (02/10/23 8:00 PM) Urine Urobilinogen Dipstick [0.2-2.0 mg/ dL] <2.0 mg/dL (02/10/23 8:00 PM) Urine Protein Dipstick 30 mg/dL mg/dL *NA* (02/10/23 8:00 PM) RDW [11.0-15.5 %] 13.8 % (02/10/23 7:54 PM) Ur Bacteria [None] 2+ *ABN* (02/10/23 8:00 PM) Ur Squamous Epithelial Cells [None] 0-4 (02/10/23 8:00 PM) Urine Color Yellow *NA* (02/10/23 8:00 PM) Ur WBC [None] 50+ *ABN* (02/10/23 8:00 PM) Urine Ketones Dipstick Negative mg/dL *NA* (02/10/23 8:00 PM) Protein Total [6.4-8.9 Gram/dL] 7.7 Gram /dL (02/10/23 7:54 PM) Ur Mucous Present *NA* (02/10/23 8:00 PM) Albumin Level [3.5-5.2 Gram/dL] 4.8 Gram /dL (02/10/23 7:54 PM) Urine pH Dipstick [5-8] 6 (02/10/23 8:00 PM) Urine Bilirubin Dipstick Negative mg/dL *NA* (02/10/23 8:00 PM) Urine Specific [place] [1.001-1.030] 1.0 21 (02/10/23 8:00 PM) MPV [8.7-12.0 fL] 9.4 fL (02/10/23 7:54 PM) Creatinine Level [0.60-1.20 mg/dL] 0.92 mg/dL (02/10/23 7:54 PM) Urine Type. U CleanCatch *NA* (02/10/23 8:00 PM) B-HCG WB Interp POC [Negative] Negative (02/10/23 7:58 PM) B-HCG WB Quant POC <5 mmol/L *NA* (02/10/23 7:58 PM) 1Interpretive Data: eGFR calculation performed using the CKD-EPI 2020 equation (race variable excluded) 2Interpretive Data: In the total absence of hemolysis, a negative result may occur and not agree with the results of a urine sediment examination. Radiology Reports * Exam Date Time Procedure Performing Provider Status 02/10/23 8:[address] Abdomen Pelvis W Sylvia Burns, field reimbursement manager; Auth (Verified) Notes: (CT Abdomen Pelvis W) Reason For Exam: right sided abodminal pain, h/o kidney abscess REPORT ACCESSION NUMBER: [id number] DATE: 02/10/2023 20:37 EXAMINATION: CT Abdomen Pelvis W PROVIDED INDICATION: right sided abdominal pain, h/o kidney abscess COMPARISON: None TECHNIQUE: Axial computed tomographic images of the abdomen and pelvis after intravenous administration of 100 mL Isovue-370. Oral contrast was not administered. Reformatted images include axial, sagittal, and coronal. FINDINGS: Lower chest: Partially imaged lung bases are clear. Heart size is normal. No pericardial or pleuraleffusion. Liver: No focal liver lesion. Biliary: Gallbladder surgically removed cholecystectomy clips in place. Bile ducts are mildly prominent, likely related Pancreas: The pancreas is homogeneous. No main duct dilatation. Spleen: The spleen is normal in size. Adrenal glands: No adrenal mass. Kidneys and ureters: No hydronephrosis. New small area of hypodensity within the upper pole of the left kidney, concerning for pyelonephritis. There has been near total resolution of the previously noted right-sided pyelonephritis and focal abscess within the right lower pole only is residual hypodense focus measuring 8 mm is noted. Urinary bladder: Bladder is semi-filled with relatively thick gallbladder becker measuring up to 6 mm. Reproductive: Uterus is seen retroverted. Gastrointestinal: The stomach, small bowel, large bowel, and mesentery are normal. The appendix is normal and is seen subhepatic. Lymphatic: No lymphadenopathy. Vessels: No significant vascular pathology. Peritoneum: No fluid collection, free intraperitoneal fluid, or free intraperitoneal air. Body wall: No hernia or mass. Bones: No acute or aggressive osseous lesion. IMPRESSION: 1. New small area of hypodensity within the upper pole of the left kidney, concerning for pyelonephritis. 2. Near total resolution of right-sided pyelonephritis and focal abscess on the residual hyperdensefocus measuring 8 mm noted with no evidence of active inflammation. The finding is likely resolvingto scarring. 3. Mild diffuse thickening of the urinary bladder becker reaching up to 6 mm concerning for cystitis, correlate clinically. 4. Uterus is seen retroverted. 5. No evidence of appendicitis or bowel obstruction. 6. Other findings, as above. I, the attending/teaching physician, have personally reviewed, discussed, and supervised this radiological examination with the resident and this report reflects my agreement. Dictated by: Mary Jiang Signed by Jono Randall M.D. on 02/10/2023 23:16 Final Dictated by: MARY JIANG MD-RAD Dictated DT/TM: 02/10/2023 11:16 pm Interpreted and electronically signed by: JONO RANDALL MD-RAD Signed DT/TM: 02/10/2023 11:16 pm Vital Signs Most recent to oldest [Reference Range]: 1 2 3 Franklin Motor Response Obey commands (02/10/23 10:00 PM) Obey commands (02/10/23 8:25 PM) Obey commands (02/10/23 7:00 PM) Elisha Verbal Response Oriented (02/10/23 10:00 PM) Oriented (02/10/23 8:25 PM) Oriented (02/10/23 7:00 PM) Franklin Eye Opening Response Spontaneous (02/10/23 10:00 PM) Spontaneous (02/10/23 8:25 PM) Spontaneous (02/10/23 7:00 PM) Elisha Coma Score 15 (02/10/23 10:00 PM) 15 (02/10/23 8:25 PM) 15 (02/10/23 7:00 PM) Temperature Source Oral (02/10/23 7:00 PM) Temperature, Fahrenheit [96.8-99.7 Deg F] 97.8 Deg F (11/1/23 7:00 PM) Clinical Temperature, C 36.6 Deg C (02/10/23 7:00 PM) Peripheral Pulse Rate [60-100 bpm] 86 bpm (02/10/23 10:00 PM) 99 bpm (02/10/23 9:00 PM) 78 bpm (02/10/23 8:00 PM) Heart Rate Monitored [60-100 bpm] 85 bpm (02/10/23 10:00 PM) 95 bpm (02/10/23 9:00 PM) 77 bpm (02/10/23 8:00 PM) Respiratory Rate [14-20 Breaths/Min] 24 Breaths/Min *HI* (02/10/23 10:00 PM) 20 Breaths/Min (02/10/23 9:00 PM) 16 Breaths/Min (02/10/23 8:00 PM) Blood Pressure [90-140/60-90 mmHg] 119/70mmHg (02/10/23 8:00 PM) 119/82mmHg (02/10/23 7:00 PM) Mean Arterial Pressure (MAP) 86 mmHg (02/10/23 8:00 PM) Mean Arterial Pressure (MAP)-BMDI 81 (02/10/23 8:00 PM) Oxygen Saturation [94-100 %] 99 % (02/10/23 10:00 PM) 100 % (02/10/23 9:00 PM) 100 % (02/10/23 8:00 PM) Oxygen Therapy Mode Room air (02/10/23 8:25 PM) Room air (02/10/23 8:00 PM) Room air (02/10/23 7:00 PM) Height/Length, HONDURAN (ft) 5 ft (02/10/23 7:00 PM) Height/Length HONDURAN 5.98 Inch (02/10/23 7:00 PM) CLINICALHEIGHT 167.59 cm (02/10/23 7:00 PM) Weight Source, ED Standing scale (02/10/23 7:00 PM) Weight METRIC kg 67.0 kg (02/10/23 7:00 PM) CLINICALWEIGHT 67 kg (02/10/23 7:00 PM) Body Surface Area (BSA) 1.76 m2 (02/10/23 7:00 PM) Body Mass Index [19-24 kg/m2] 23.9 kg/m2 (02/10/23 7:00 PM) [place] Body Weight 59 kg (02/10/23 7:00 PM) Social History Social History Type Response Smoking Status Never smoker entered on: 11/16/22 Sex Female Hospital Discharge Instructions Patient Education 02/10/2023 23:26:12 Pyelonephritis, Adult, Jrff-me-Mwmu Pyelonephritis, Adult Pyelonephritis is an infection that occurs in the kidney. The kidneys are organs that help clean the blood by moving waste out of the blood and into the pee (urine). This infection can happen quickly, or it can last for a long time. In most cases, it clears up with treatment and does not cause other problems. What are the causes? This condition may be caused by: ??? Germs (bacteria) going from the bladder up to the kidney. This may happen after having a bladder infection. ??? Germs going from the blood to the kidney. What increases the risk? This condition is more likely to develop in: ??? women. ??? Older people. ??? People who have any of these conditions: ??? Diabetes. ??? Inflammation of the prostate gland (prostatitis), in males. ??? Kidney stones or bladder stones. ??? Other problems with the kidney or the parts of your body that carry pee from the kidneys to thebladder (ureters). ??? Cancer. ??? People who have a small, thin tube (catheter) placed in the bladder. ??? People who are sexually active. ??? Women who use a medicine that kills sperm (spermicide) to prevent . ??? People who have had a prior urinary tract infection (UTI). What are the signs or symptoms? Symptoms of this condition include: ??? Peeing often. ??? A strong urge to pee right away. ??? Burning or stinging when peeing. ??? Belly pain. ??? Back pain. ??? Pain in the side (flank area). ??? Fever or chills. ??? Blood in the pee, or dark pee. ??? Feeling sick to your stomach (nauseous) or throwing up (vomiting). How is this treated? This condition may be treated by: ??? Taking antibiotic medicines by mouth (orally). ??? Drinking enough fluids. If the infection is bad, you may need to stay in the hospital. You may be given antibiotics and fluids that are put directly into a vein through an IV tube. In some cases, other treatments may be needed. Follow these instructions at home: Medicines ??? Take your antibiotic medicine as told by your doctor. Do not stop taking the antibiotic even ifyou start to feel better. ??? Take drqp-kim-owkvvmj and prescription medicines only as told by your doctor. General instructions ??? Drink enough fluid to keep your pee pale yellow. ??? Avoid caffeine, tea, and carbonated drinks. ??? Pee (urinate) often. Avoid holding in pee for long periods of time. ??? Pee before and after sex. ??? After pooping (having a bowel movement), women should wipe from front to back. Use each tissue only once. ??? Keep all follow-up visits as told by your doctor. This is important. Contact a doctor if: ??? You do not feel better after 2 days. ??? Your symptoms get worse. ??? You have a fever. Get help right away if: ??? You cannot take your medicine or drink fluids as told. ??? You have chills and shaking. ??? You throw up. ??? You have very bad pain in your side or back. ??? You feel very weak or you pass out (faint). Summary ??? Pyelonephritis is an infection that occurs in the kidney. ??? In most cases, this infection clears up with treatment and does not cause other problems. ??? Take your antibiotic medicine as told by your doctor. Do not stop taking the antibiotic even ifyou start to feel better. ??? Drink enough fluid to keep your pee pale yellow. This information is not intended to replace advice given to you by your health care provider. Make sure you discuss any questions you have with your health care provider. Document Revised: 11/06/2021 Document Reviewed: 11/06/2021 [employer] Patient Education ?? 2022 [employer]. 02/10/2023 23:26:12 Urinary Tract Infection, Adult Urinary Tract Infection, Adult A urinary tract infection (UTI) is an infection of any part of the urinary tract. The urinary tractincludes the kidneys, ureters, bladder, and urethra. These organs make, store, and get rid of urinein the body. An upper UTI affects the ureters and kidneys. A lower UTI affects the bladder and urethra. What are the causes? Most urinary tract infections are caused by bacteria in your genital area around your urethra, where urine leaves your body. These bacteria grow and cause inflammation of your urinary tract. What increases the risk? You are more likely to develop this condition if: ??? You have a urinary catheter that stays in place. ??? You are not able to control when you urinate or have a bowel movement (incontinence). ??? You are female and you: ??? Use a spermicide or diaphragm for control. ??? Have low estrogen levels. ??? Are . ??? You have certain genes that increase your risk. ??? You are sexually active. ??? You take antibiotic medicines. ??? You have a condition that causes your flow of urine to slow down, such as: ??? An enlarged prostate, if you are male. ??? Blockage in your urethra. ??? A kidney stone. ??? A nerve condition that affects your bladder control (neurogenic bladder). ??? Not getting enough to drink, or not urinating often. ??? You have certain medical conditions, such as: ??? Diabetes. ??? A weak disease-fighting system (immunesystem). ??? Sickle cell disease. ??? Gout. ??? Spinal cord injury. What are the signs or symptoms? Symptoms of this condition include: ??? Needing to urinate right away (urgency). ??? Frequent urination. This may include small amounts of urine each time you urinate. ??? Pain or burning with urination. ??? Blood in the urine. ??? Urine that smells bad or unusual. ??? Trouble urinating. ??? Cloudy urine. ??? Vaginal discharge, if you are female. ??? Pain in the abdomen or the lower back. You may also have: ??? Vomiting or a decreased appetite. ??? Confusion. ??? Irritability or tiredness. ??? A fever or chills. ??? Diarrhea. The first symptom in older adults may be confusion. In some cases, they may not have any symptoms until the infection has worsened. How is this diagnosed? This condition is diagnosed based on your medical history and a physical exam. You may also have other tests, including: ??? Urine tests. ??? Blood tests. ??? Tests for STIs (sexually transmitted infections). If you have had more than one UTI, a cystoscopy or imaging studies may be done to determine the cause of the infections. How is this treated? Treatment for this condition includes: ??? Antibiotic medicine. ??? Fqon-wvx-aaqjzmv medicines to treat discomfort. ??? Drinking enough water to stay hydrated. If you have frequent infections or have other conditions such as a kidney stone, you may need to see a health care provider who specializes in the urinary tract (urologist). In rare cases, urinary tract infections can cause sepsis. Sepsis is a life- threatening condition that occurs when the body responds to an infection. Sepsis is treated in the hospital with IV antibiotics, fluids, and other medicines. Follow these instructions at home: Medicines ??? Take phaq-lbl-przphvl and prescription medicines only as told by your health care provider. ??? If you were prescribed an antibiotic medicine, take it as told by your health care provider. Donot stop using the antibiotic even if you start to feel better. General instructions ??? Make sure you: ??? Empty your bladder often and completely. Do not hold urine for long periods of time. ??? Empty your bladder after sex. ??? Wipe from front to back after urinating or having a bowel movement if you are female. Use each tissue only one time when you wipe. ??? Drink enough fluid to keep your urine pale yellow. ??? Keep all follow-up visits. This is important. Contact a health care provider if: ??? Your symptoms do not get better after 1???2 days. ??? Your symptoms go away and then return. Get help right away if: ??? You have severe pain in your back or your lower abdomen. ??? You have a fever or chills. ??? You have nausea or vomiting. Summary ??? A urinary tract infection (UTI) is an infection of any part of the urinary tract, which includes the kidneys, ureters, bladder, and urethra. ??? Most urinary tract infections are caused by bacteria in your genital area. ??? Treatment for this condition often includes antibiotic medicines. ??? If you were prescribed an antibiotic medicine, take it as told by your health care provider. Donot stop using the antibiotic even if you start to feel better. ??? Keep all follow-up visits. This is important. This information is not intended to replace advice given to you by your health care provider. Make sure you discuss any questions you have with your health care provider. Document Revised: 11/08/2020 Document Reviewed: 11/08/2020 [employer] Patient Education ?? 2022 [employer]. Follow Up Care 02/10/2023 18:51:46 With:Your blood pressure is elevated today f/u with pmd Address:Unknown When:02/12/2023 With:take medication as prescribed Address:Unknown When: Unknown With:return to ed for worsening symptoms Address:Unknown When: Unknown With:f/u pmd as needed Address:Unknown When: Unknown With:TUAN WEBB Address: [address] [place], [place] [id number]- Business (1) When:2 to 3 days With:NOT LISTED PH Address:Unknown When:2 to 3 days With:[facility] Address: Call for follow-up Business (1) When:2 to 3 days Comments:Call for follow up appointment Physician Emergency department Note * CONSTANCE FARIAS MD-EMR: PERFORM, MODIFY, SIGN, VERIFY Event Display: ED Physician Notes Authored Date: Patient: FINESSE MACHADO Age: 27 years Sex: Female : 1995 Associated Diagnoses: UTI (urinary tract infection); Pyelonephritis, acute Author: CONSTANCE FARIAS MD-EMR Basic Information Addendum: Pertinent history: Follow up on imaging results. Reexamination/ Reevaluation Notes: Attending did read x-ray read and felt abscess is either gone or small bowel scarring from it no abscess present now patient does have concern for some Cesario patient with no nausea vomiting still having some pain so we will give small pain medicine understands importance of returning immediately if unable to take oral liquids or antibiotics or if starts running a fever went ahead and gave IV Rocephin here and send out cefdinir Zofran and meloxicam for the pain understands precautions to return her and her significant other. Impression and Plan Diagnosis UTI (urinary tract infection) - Discharge, Medical Pyelonephritis, acute - Discharge, Emergency medicine, Medical Plan Condition: Stable. Disposition: Discharged Admit/Transfer/Discharge: Discharge (Order): Start: 02/10/2023 23:25 EDT, Discharge to: Home. Prescriptions: Prescription [facility]: [facility] 5 mg-325 mg oral tablet (Prescribe): 1 Tab, Oral, Q6H, PRN: for pain, 12 Tab, 0 Refill(s) Zofran ODT 4 mg oral tablet, disintegrating (Prescribe): 4 mg, 1 Tab, Oral, TID, 12 Tab, 0 Refill(s). Patient was given the following educational materials: Urinary Tract Infection, Adult, Pyelonephritis, Adult, Hfks-al-Jhgo. Follow up with: [facility] Within 2 to 3 days Call for follow up appointment; NOT LISTED TAMERA Within 2 to 3 days; TUAN WEBB Within 2 to 3 days; f/u pmd as needed; return to ed for worsening symptoms; take medication as prescribed; Your blood pressure is elevated today f/u with pmd In 2 days 02/12/2023. Counseled: Patient, Regarding diagnostic results, Regarding prescription, Pre-hypertension/Hypertension: The patient has been informed that they may have pre-hypertension or Hypertension based on a blood pressure reading in the emergency department. I recommend that the patient call the primary care provider listed on their discharge instructions or a physician of their choice this week to arrange follow up for further evaluation of possible pre- hypertension or Hypertension.. Notes: With use of voice recognized system such as Hylete, many words are nonsensical and jumbled, I try to correct them when I see them but still some are missed. Addendum Teaching-Supervisory Addendum-Brief Vital signs: Basic Oxygen Information 02/10/2023 22:58 EDT Hand off Report Received From La Cox RN Handoff Reported to Lynnette Sifuentes Agency RN [facility] Handoff Method Bedside/Face to face ValuablesBelongings Inventoried/Reviewed N/A Handoff and Chart Check Reviewed All Active Orders, Reviewed Overdue Tasks, Reviewed Pending Diagnostics (Labs & Radiology), Reviewed Level of Care and Code Status, Patient Location Updated as Appropriate, Discussed Patient and Family Centered Care, Discussed Notable Assessment Findings and Results Nursing Handoff Form Nursing Handoff Form Nursing Notes Nursing Handoff 02/10/2023 22:57 EDT Hand off Report Received From La Cox RN Handoff Reported to Lynnette Sifuentes Agency RN [facility] Handoff Method Bedside/Face to face ValuablesBelongings Inventoried/Reviewed N/A Handoff and Chart Check Reviewed All Active Orders, Reviewed Overdue Tasks, Reviewed Pending Diagnostics (Labs & Radiology), Reviewed Level of Care and Code Status, Patient Location Updated as Appropriate, Discussed Patient and Family Centered Care, Discussed Notable Assessment Findings and Results Nursing Handoff Form Nursing Handoff Form Nursing Notes Nursing Handoff 02/10/2023 22:48 EDT MEWS Score 2 MEWS Change 2 02/10/2023 22:00 EDT Franklin Motor Response Obey commands Franklin Verbal Response Oriented Elisha Eye Opening Response Spontaneous Franklin Coma Score 15 Peripheral Pulse Rate 86 bpm Heart Rate Monitored 85 bpm Respiratory Rate 24 Breaths/Min HI Oxygen Saturation 99 % 02/10/2023 21:26 EDT ibuprofen 600 mg mg 02/10/2023 21:00 EDT Peripheral Pulse Rate 99 bpm Heart Rate Monitored 95 bpm Respiratory Rate 20 Breaths/Min Oxygen Saturation 100 % 02/10/2023 20:50 EDT cefTRIAXone 2 Gram Gram 02/10/2023 20:[address] Abdomen Pelvis W CT Abdomen Pelvis W 02/10/2023 20:40 EDT iopamidol 100 mL mL 02/10/2023 20:29 EDT Pain Assessment Follow-up assessment Pain Improved by Intervention Yes SIRS Indicator Signs/Symptms Present/New Heart Rate GREATER than 90 beats per minute, WBC GREATER than 12,000/??L Two or More Signs/Symptms SIRS Indicator Yes (Two or more signs and symptoms SIRS Indicators) Suspected or Confirmed Infection Urinary tract infection Positive for History of Infection Yes Sepsis Screen is Positive Yes Organ Dysfunction Vital Signs/Labs Organ Dysfunction Vital Signs/Labs SIRS Screening Vital Signs/Labs SIRS Screening Vital Signs/Labs Pain Assessment-Text Pain Assessment Sepsis Screening Tool-Text Sepsis Screening Tool 02/10/2023 20:28 EDT MEWS Score 0 MEWS Change 0 02/10/2023 20:26 EDT Estimated Creatinine Clearance 87.44 mL/Min 02/10/2023 20:25 EDT Cardiovascular Symptoms None Skin Description Dry Skin Temperature Warm Genitourinary Symptoms Flank Pain - Right Side, Hematuria Urine Description Cloudy Urine Color Yellow Level of Consciousness Alert, Awake Orientation Oriented x 4 Neurological Symptoms None Affect/Behavior Appropriate, Calm, Cooperative Elisha Motor Response Obey commands Elisha Verbal Response Oriented Franklin Eye Opening Response Spontaneous Franklin Coma Score 15 Shift Summary Note Shift Summary Note Respiratory Symptoms No Respiratory Symptoms (No cough or shortness of breath) Respiratory Pattern Description Regular Respiration Description Even and Unlabored Oxygen Therapy Mode Room air ED Assessment Form ED Assessment Form ED Nursing Record ED Assessment 02/10/2023 20:20 EDT ED Physician Notes Abdominal pain 02/10/2023 20:19 EDT MEWS Change 0 02/10/2023 20:19 EDT MEWS Score 0 02/10/2023 20:18 EDT 02/10/2023 19:45 Over the needle Antecubital Right 20 gauge Peripheral Catheter/Needle Length: 1 Inch Peripheral IV Activity: Blood drawn with insertion, Saline lock, Start Peripheral IV Inserted by: La Cox RN Peripheral IV Number of Attempts: 1 Peripheral IV Skin Preparation: Chlorhexadine Peripheral IV Site Assessment: IV site WDL IV Site/Line Care: Secured with tape IV Dressing Activity: Applied Peripheral IV Dressing: Antimicrobial patch, Occlusive Peripheral IV Dressing Condition: Dry, Intact 02/10/2023 20:17 EDT POC HCG Wholeblood Completed Yes POC Lactic Acid Completed Yes Site of Blood Draw Specimen by Nursing IV insertion Site of Blood Draw Specimen by Nursing IV insertion ED HCG Wholeblood Form ED HCG Wholeblood Form ED POC Lactic Acid Form ED POC Lactic Acid Form ED Record ED POC - HCG Wholeblood ED Record ED POC - Lactic Acid 02/10/2023 20:03 EDT Pain Intensity 10 HYDROmorphone 0.5 mg mg ondansetron 4 mg mg Sodium Chloride 0.9% 1,000 mL mL 02/10/2023 20:00 EDT Urine Type. U CleanCatch Urine Color Yellow Urine Appearance SL CLOUDY Urine Specific [place] 1.021 Urine pH Dipstick 6 Urine Leukocyte Esterase Large Urine Nitrite Positive mg/dL Urine Protein Dipstick 30 mg/dL mg/dL Urine Glucose Dipstick Normal mg/dL Urine Ketones Dipstick Negative mg/dL Urine Urobilinogen Dipstick <2.0 mg/dL Urine Bilirubin Dipstick Negative mg/dL Urine Blood Dipstick Trace mg/dL Ur RBC 15-29 Ur WBC 50+ Ur Bacteria 2+ Ur Mucous Present Ur Squamous Epithelial Cells 0-4 Peripheral Pulse Rate 78 bpm Heart Rate Monitored 77 bpm Respiratory Rate 16 Breaths/Min Systolic Blood Pressure 119 mmHg Diastolic Blood Pressure 70 mmHg Mean Arterial Pressure (MAP) 86 mmHg Mean Arterial Pressure (MAP)-BMDI 81 Oxygen Saturation 100 % Oxygen Therapy Mode Room air 02/10/2023 19:58 EDT B-HCG WB Quant POC <5 mmol/L NA B-HCG WB Interp POC Negative Device SN [id number] Meat Grader [id number] 02/10/2023 19:54 EDT Sodium Level 135 mmol/L LOW Potassium Level 3.4 mmol/L LOW Chloride Level 102 mmol/L Carbon Dioxide Level 28.0 mmol/L Anion Gap 5.0 Glucose Level 90 mg/dL Blood Urea Nitrogen 11 mg/dL CREATININE 0.92 mg/dL eGFR 89 mL/min/1.73m2 Bun/Creatinine 12.0 Calcium Level 9.6 mg/dL Protein Total 7.7 Gram/dL Albumin Level 4.8 Gram/dL Globulin 3 NA A/G Ratio 1.7 Bilirubin Total 0.90 mg/dL Alk Phos 111 Units/Liter HI AST 45 Units/Liter HI ALT 38 Units/Liter HI Lactic Acid POC 0.65 mmol/L LOW WBC 17.0 x10(3)/uL HI RBC 4.50 x10(6)/uL Hgb 13.4 Gram/dL Hct 39.4 % MCV 87.6 fL MCH 29.6 pg MCHC 33.9 Gram/dL Platelet Count 243 x10(3)/uL MPV 9.4 fL RDW 13.8 % Device SN [id number] Meat Grader [id number] 02/10/2023 19:34 EDT Nurse Collect Order Detail 3.00 02/10/2023 19:34 EDT Nurse Collect Order Detail 3.00 Nurse Collect Order Detail 3.00 02/10/2023 19:33 EDT Nurse Collect Order Detail 3.00 Nurse Collect Order Detail 3.00 Nurse Collect Order Detail 3.00 02/10/2023 19:33 EDT Nurse Collect Order Detail 3.00 Nurse Collect Order Detail 3.00 Nurse Collect Order Detail 3.00 02/10/2023 19:33 EDT Nurse Collect Order Detail 3.00 02/10/2023 19:33 EDT Nurse Collect Order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
--- OUTSIDE RECORDS SUMMARY | 2023-09-03 21:31 | XMS_ITS | Continuity of Care Document ---
Author Name Unknown Address [address] [place], [place] [id number] Organization [facility] Phone Care Team Providers Care Senior Piping Designer Name Role Phone LEANN LOZANO Primary Care [phone] LEANN LOZANO Unavailable LEANN LOZANO Primary Attending LEANN LOZANO Admitting TREATMENT PLAN DISCHARGE MEDICATIONS Status RXNORM Medication Dose Route Frequency Dates Comments U pdated By Patient discharge medication information is not available. PATIENT OPEN ORDERS Code System Description Frequency Occurrences Priority [place] [id number] [facility] Spine Lumbar X-ray 2 or 3 views ONE TIME 0 Routine June 03, 2023 3:26:00 PM [facility] MARTA Jenkins MANAGER OF WAREHOUSE [id number] on June 03, 2023 3:28:00 PM [facility] SCHEDULED PROCEDURES Code System Description Status Scheduled Date Upd ated By Patient scheduled procedure information is not available. MEDICATIONS HOME MEDICATIONS Status RXNORM Medication Dose Route Frequency Dates Comments R eported By Updated By Drug Treatment Unknown DISCHARGE MEDICATIONS Status RXNORM Medication Dose Route Frequency Dates Comments Physic inga Updated By No Discharge Medication Info rmation Available INPATIENT MEDICATIONS Status RXNORM Medication Dose Route Frequency Rate Quantity Dates Comments Physician Updated By No Inpatient Medication Info rmation Available SOCIAL HISTORY SOCIAL HISTORY SNOMED-CT Social History Element Description Effective Dates Offered Cessation Comment UpdatedBy [id number] Smoking Status Unknown If Ever Smoked SOCIAL HISTORY - Gender Sex: Female SOCIAL HISTORY - Sexual Behavior Sexual Orientation Gender Identity SNOMED-CT Description SNO MED -CT Description Activity Level No of Partners Partner Type UpdatedBy Information is not available HEALTH CONCERNS Problems Concern Status Health Concern problem infor mation not available. Smoking Status Status Years Used Consumed packs p er day Health Concern smoking histo ry information not available. Family History Concern Status Health Concern family histor y information not available. ENCOUNTERS ENCOUNTER INFORMATION Reason for Visit M54.16 Admission June 03, 2023 3:20:[address] [id number] Discharge June 03, 2023 3:20:00 PM [facility] DISCHARGED TO HOME OR SELF CARE ENCOUNTER DIAGNOSES Notes information is not harinder ilable. Code System Diagnosis Onset Date Diagnosis information is not available. ABSTRACT DIAGNOSES Code System Diagnosis Updated By Abstract Diagnosis informati on is not available. CARE TEAM Care Senior Piping Designer Role LEANN LOZANO Primary Care LEANN LOZANO Referring LEANN LOZANO Primary Attending LEANN LOZANO Admitting CARE TEAM CARE mixer runner Role on Team Status Start Date End Date Update d By MARTA DUNAWAY PCP normal June 03, 2023 5:00:00 AM [facility] June 03, 2023 3:20:00 PM [facility] [id number] on June 03, 2023 3:20:46 PM [facility] MARTA DUNAWAY Referring normal June 03, 2023 5:00:00 AM [facility] June 03, 2023 3:20:00 PM [facility] [id number] on June 03, 2023 3:20:46 PM [facility] MARTA DUNAWAY Attending normal June 03, 2023 5:00:00 AM [facility] June 03, 2023 3:20:00 PM [facility] [id number] on June 03, 2023 3:20:46 PM [facility] MARTA DUNAWAY Admitting normal June 03, 2023 5:00:00 AM [facility] June 03, 2023 3:20:00 PM [place] [id number] on June 03, 2023 3:20:46 PM [facility]
--- OUTSIDE RECORDS SUMMARY | 2023-09-03 21:31 | XMS_ITS | Continuity of Care Document ---
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 Role Phone [address] Primary Care Physician Encounter [facility] [id number] Date(s): 11/17/22 - 11/22/22 [facility] [address] [place] [address]- [place] Encounter Diagnosis Pyelonephritis(Discharge Diagnosis) - 11/17/22 Discharge Disposition: IP Self Care / Home Attending Physician: LUIS ALBERTO SALINAS MD-INT Admitting Physician: AILYN SALOMON NP-MED Referring Physician: TAMERA, UNKNOWN Allergies, Adverse Reactions, Alerts Substance Reaction Severity Status erythromycin Active Assessment and Plan Extracted from: Title:Discharge Note Author:LUIS ALBERTO SALINAS MD-I NT Date:11/22/22 _ 1.??Pyelonephritis??N12 Orders: cefdinir, 300 mg 1 Cap, Oral, Cap, Q12H, X 7 Day(s), # 14 Cap, 0 Refill(s), Pharmacy: [facility], , 11/18/22 3:16:00 EDT, CLINICALHEIGHT, 63.64, kg, 11/16/22 19:41:00 EDT, CLINICALWEIGHT, 167.59 Discharge Discharge Diet Instructions Discharge General Instructions Physician to Notify if Emergency Discharge Orders Discharge - Ordered?-- Start: 11/22/22 13:42:00 EDT, Discharge to: Home Discharge Diet Instructions - Ordered?-- Diet: Resume usual diet as tolerated Discharge General Instructions - Ordered?-- Discharge activity: Activity as tolerated Physician to Notify if Emergency - Ordered?-- Or request a Resident who is [employer] P[employer] And 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 Number: [phone] and request the medical specialty. ? _ _ Discharge Disposition ?Home _ Extracted from: Title:Medicine Progress Note Author:LUIS ALBERTO SALINAS MD-INT Date:11/21/22 1.??Pyelonephritis ?? 1. Pyelonephritis with suspected abscess,??cultures grew E. coli and is on??IV Rocephin and underwent repeat CT which revealed slightly improving pyelonephritis with abscess at the??lower pole??of the right??kidney.?? Most likely home tomorrow. ?? 2.??Lovenox for DVT prophylaxis. ?? 3. ??CODE STATUS is full code. ? Extracted from: Title:[facility] Progress Note Author:UZMA THOMPSON MD-URO Date:11/20/22 26 yo F with no PMH admitted ??3 days ago for pyelonephritis and 2.4 cm renal abscess. ?? Labs reviewed: WBC 6.4 < 7.4 < 8.3 < 14.5 Cr 0.77 < 0.75 < 0.82 < 1.12 ?? Urine Cx: +E. coli, sensitive to Rocephin. Blood Cx: NGTD ?? CT A/P 11/16/22 independently reviewed with 2.4 cm renal abscess + pyelo. ?? PLAN: -F/u labs -Repeat CT A/P to evaluate renal abscess -Continue abx per primary ? Cece Andrade, MS4 ?? Uzma Thompson MD PGY-3 ? Extracted from: Title:[facility] Progress Note Author:Sylvia SALINAS MD-INT Date:11/19/22 1.??Pyelonephritis Orders: enoxaparin, 40 mg, SubCutaneous, Inj, Daily, Routine, Start 11/19/22 10:00:00 EDT, Indication: DVT/PE Prophylaxis, 11/18/22 16:34:00 EDT morphine, 2 mg, IV Push, Inj, Q6H, PRN for Pain (Severe 7-10), Routine, Start 11/18/22 13:00:00 EDT, 11/18/22 13:00:00 EDT BMP Basic Metabolic Panel CBC w/ Auto Diff ? 1. Pyelonephritis with suspected abscess,??cultures grew E. coli and is on??IV Rocephin and urology plans on repeat imaging in next 1 to 2 days. ?? 2.??Lovenox for DVT prophylaxis. ?? 3. ??CODE STATUS is full code. ? Disposition:?? Anticipate hospital admission to be > 24 hours for further care. Barriers to discharge:?? Urology evaluation.?? Awaiting blood cultures and urine culture. Likely home with family when cleared for discharge. ? Extracted from: Title:[facility] Progress Note Author:UZMA THOMPSON MD-URO Date:11/19/22 26 yo F with no PMH admitted 2 days ago for pyelonephritis and 2.4 cm renal abscess. ?? Labs reviewed: WBC 7.4 < 8.3 < 14.5 Cr 0.75 < 0.82 < 1.12 ?? Urine Cx: +E. coli, sens pending Blood Cx: NGTD ?? CT A/P 11/16/22 independently reviewed with 2.4 cm renal abscess + pyelo. ?? PLAN: -F/u labs and sensitivities -Continue abx per primary -If decompensates, will need repeat imaging and possible??OR for drainage of abscess ? Cece Andrade, MS4 ?? Uzma Thompson MD PGY-3 ? Addendum by MAXIMILIANO WEBB MD-URO on November 19, 2022 07:15:55 EDT [facility] [phone] staff addendum pt seen and examined agree with above plan formulated with resident ?? labs reviewed. ??cont abx. follow Ucx- prelim ecoli. consider re-image in 1-2 days. ?? Maximiliano Webb MD [facility] [phone] ? Extracted from: Title:[facility] Progress Note Author:Sylvai SALINAS MD-INT Date:11/18/22 1.??Pyelonephritis ?? 1. Pyelonephritis with suspected abscess,??continue with IV Rocephin and will await for final cultures and sensitivities and urology is following along.?? WBC is normal and patient is afebrile. ?? 2. ??Start Lovenox for DVT prophylaxis. ?? 3. ??CODE STATUS is full code. ? Disposition:?? Anticipate hospital admission to be > 24 hours for further care. Barriers to discharge:?? Urology evaluation.?? Awaiting blood cultures and urine culture. Likely home with family when cleared for discharge. ? Extracted from: Title:[facility] Consult Note Author:MAXIMILIANO WEBB MD-URO Date:11/18/22 1.??Pyelonephritis ? pyelonephritis right renal abscess. ?? PLAN: CT independently reviewed/interpreted as above. labs reviewed. will cont with IV abx - check Ucx. Rocephin for now. serial imaging. if refractory, then will need OR drainage of abscess. ?? Maximiliano Webb MD [facility] ? Medications cefdinir 300 mg oral capsule 300 mg 1 Cap, Oral, Cap, Q12H, X 7 Day(s), # 14 Cap, 0 Refill(s), [facility]acy: [facility], cm, 11/18/22 3:16:00 EDT, CLINICALHEIGHT, 63.64, kg, 11/16/22 19:41:00 EDT, CLINICALWEIGHT, 167.59 Start Date: 11/22/22 Stop Date: 11/29/22 Status: Ordered Mental Status 11/22/22 Level of Consciousness Alert, Awake Orientation Oriented x 4 Neurologic Assessment WDL WDL Pupils Equal, Round, Reactive to Light Y es Affect/Behavior Appropriate, Calm, Cooperative 11/20/22 Facial Symmetry Symmetric Speech Clear 11/17/22 Pupil Description, Left Regular, Round Pupil Description, Right Regular, Round Tongue Protrusion Midline Tone Left upper extremity , Right upper extremity, Left lower extremity, Right lower extremity Left Upper Extremity Tone No abnormality Right Upper Extremity Tone No abnormalit y Left Lower Extremity Tone No abnormality Right Lower Extremity Tone No abnormalit y Strength, Neuro Left upper extremity strength, Right upper extremity strength, Left lower extremity strength, Right lower extremity strength Left Upper Extremity Strength Full stren gth Right Upper Extremity Strength Full stre ngth Left Lower Extremity Strength Full stren gth Right Lower Extremity Strength Full stre ngth Sensation, Neurological Left upper extre mity sensation, Right upper extremity sensation, Left lower extremity sensation, Right lower extremities sensation Left Upper Extremity Sensation Intact Right Upper Extremity Sensation Intact Left Lower Extremity Sensation Intact Right Lower Extremity Sensation Intact Problem List No Known Problems Procedures Procedure Date Related Diagnosis Body Site Status Abnormal gallbladder function Completed Results Laboratory List Name Date [facility] Basic Metabolic Panel 11/22/22 CBC w/ Auto Diff 11/22/22 .Automated Differential 11/22/22 [facility] Basic Metabolic Panel 11/21/22 CBC w/ Auto Diff 11/21/22 .Automated Differential 11/21/22 BMP Basic Metabolic Panel 11/20/22 CBC w/ Auto Diff 11/20/22 CMP Comprehensive Metabolic Panel 3 .Automated Differential 11/20/22 Magnesium Level 11/18/22 :Glucose POC 11/18/22 :Glucose POC 11/17/22 Most recent to oldest [Reference Range]: 1 2 3 4 eGFR [>=60 mL/min/1.73m2] 106 mL/min/1.73m2 1 (11/22/22 9:50 AM) 112 mL/min/1.73m2 2 (11/21/22 9:02 AM) 107 mL/min/1.73m2 3 (11/20/22 8:57 AM) 105 mL/min/1.73m2 4 (11/20/22 8:57 AM) Sodium Level [136-145 mmol/L] 138 mmol/L (11/22/22 9:50 AM) 138 mmol/L (11/21/22 9:02 AM) 137 mmol/L (11/20/22 8:57 AM) 137 mmol/L (11/20/22 8:57 AM) Potassium Level [3.5-5.1 mmol/L] 4.1 mmol/L (11/22/22 9:50 AM) 4.0 mmol/L (11/21/22 9:02 AM) 4.1 mmol/L (11/20/22 8:57 AM) 4.0 mmol/L (11/20/22 8:57 AM) Chloride Level [98-110 mmol/L] 104 mmol/L (11/22/22 9:50 AM) 106 mmol/L (11/21/22 9:02 AM) 105 mmol/L (11/20/22 8:57 AM) 106 mmol/L (11/20/22 8:57 AM) Carbon Dioxide Level [21.0-31.0 mmol/L] 27.0 mmol/L (11/22/22 9:50 AM) 25.0 mmol/L (11/21/22 9:02 AM) 26.0 mmol/L (11/20/22 8:57 AM) 27.0 mmol/L (11/20/22 8:57 AM) Anion Gap [2.0-11.0] 7.0 (11/22/22 9:50 AM) 7.0 (11/21/22 9:02 AM) 6.0 (11/20/22 8:57 AM) 4.0 (11/20/22 8:57 AM) WBC [4.0-10.8 x10(3)/uL] 7.3 x10(3)/uL (11/22/22 9:50 AM) 7.4 x10(3)/uL (11/21/22 9:02 AM) 7.4 x10(3)/uL (11/20/22 8:57 AM) RBC [3.77-5.16 x10(6)/uL] 4.20 x10(6)/uL (11/22/22 9:50 AM) 3.92 x10(6)/uL (11/21/22 9:02 AM) 4.13 x10(6)/uL (11/20/22 8:57 AM) Hct [35.0-45.0 %] 36.6 % (11/22/22 9:50 AM) 34.6 % *LOW* (11/21/22 9:02 AM) 36.8 % (11/20/22 8:57 AM) Hgb [12.0-16.0 Gram/dL] 13.0 Gram/dL (11/22/22 9:50 AM) 12.0 Gram/dL (11/21/22 9:02 AM) 12.6 Gram/dL (11/20/22 8:57 AM) Platelet Count [140-420 x10(3)/uL] 279 x10(3)/uL (11/22/22 9:50 AM) 254 x10(3)/uL (11/21/22 9:02 AM) 231 x10(3)/uL (11/20/22 8:57 AM) MCH [25.6-32.2 pg] 30.9 pg (11/22/22 9:50 AM) 30.5 pg (11/21/22 9:02 AM) 30.5 pg (11/20/22 8:57 AM) MCHC [32.3-36.5 Gram/dL] 35.4 Gram/dL (11/22/22 9:50 AM) 34.6 Gram/dL (11/21/22 9:02 AM) 34.3 Gram/dL (11/20/22 8:57 AM) MCV [79.4-94.8 fL] 87.2 fL (11/22/22 9:50 AM) 88.2 fL (11/21/22 9:02 AM) 88.9 fL (11/20/22 8:57 AM) Bilirubin Total [0.30-1.00 mg/dL] 0.30 mg/dL (11/20/22 8:57 AM) A/G Ratio [1.0-1.7] 1.2 (11/20/22 8:57 AM) ALT [<=24 Units/Liter] 38 Units/Liter *HI* (11/20/22 8:57 AM) AST [13-39 Units/Liter] 19 Units/Liter (11/20/22 8:57 AM) Globulin 3 *NA* (11/20/22 8:57 AM) Alk Phos [34-104 Units/Liter] 143 Units/Liter *HI* (11/20/22 8:57 AM) Bun/Creatinine [6.0-22.0] 8.9 (11/22/22 9:50 AM) 11.8 (11/21/22 9:02 AM) 10.1 (11/20/22 8:57 AM) 10.0 (11/20/22 8:57 AM) Calcium Level [8.6-10.2 mg/dL] 9.6 mg/dL (11/22/22 9:50 AM) 9.1 mg/dL (11/21/22 9:02 AM) 9.3 mg/dL (11/20/22 8:57 AM) 9.3 mg/dL (11/20/22 8:57 AM) Glucose Level [74-109 mg/dL] 87 mg/dL (11/22/22 9:50 AM) 88 mg/dL (11/21/22 9:02 AM) 79 mg/dL (11/20/22 8:57 AM) 82 mg/dL (11/20/22 8:57 AM) Magnesium Level [1.9-2.7 mg/dL] 2.1 mg/dL (11/18/22 4:16 PM) Blood Urea Nitrogen [7-25 mg/dL] 7 mg/dL (11/22/22 9:50 AM) 9 mg/dL (11/21/22 9:02 AM) 8 mg/dL (11/20/22 8:57 AM) 8 mg/dL (11/20/22 8:57 AM) Slide Review None *NA* (11/22/22 9:50 AM) None *NA* (11/21/22 9:02 AM) None *NA* (11/20/22 8:57 AM) Eos % [0.0-7.0 %] 2.2 % (11/22/22 9:50 AM) 2.5 % (11/21/22 9:02 AM) 2.5 % (11/20/22 8:57 AM) Hinds # [0.0-1.0 x10(3)/uL] 0.4 x10(3)/uL (11/22/22 9:50 AM) 0.4 x10(3)/uL (11/21/22 9:02 AM) 0.4 x10(3)/uL (11/20/22 8:57 AM) Eos # [0.0-0.7 x10(3)/uL] 0.2 x10(3)/uL (11/22/22 9:50 AM) 0.2 x10(3)/uL (11/21/22 9:02 AM) 0.2 x10(3)/uL (11/20/22 8:57 AM) Hinds % [2.0-12.0 %] 5.3 % (11/22/22 9:50 AM) 6.0 % (11/21/22 9:02 AM) 6.0 % (11/20/22 8:57 AM) Baso % [0.0-3.0 %] 0.8 % (11/22/22 9:50 AM) 1.0 % (11/21/22 9:02 AM) 0.6 % (11/20/22 8:57 AM) Baso # [0.0-0.3 x10(3)/uL] 0.1 x10(3)/uL (11/22/22 9:50 AM) 0.1 x10(3)/uL (11/21/22 9:02 AM) 0.0 x10(3)/uL (11/20/22 8:57 AM) RDW [11.0-15.5 %] 12.1 % (11/22/22 9:50 AM) 12.3 % (11/21/22 9:02 AM) 12.5 % (11/20/22 8:57 AM) Neut % [34.0-75.0 %] 71.5 % (11/22/22 9:50 AM) 69.1 % (11/21/22 9:02 AM) 69.8 % (11/20/22 8:57 AM) Protein Total [6.4-8.9 Gram/dL] 7.0 Gram/dL (11/20/22 8:57 AM) Neut # [1.5-7.1 x10(3)/uL] 5.2 x10(3)/uL (11/22/22 9:50 AM) 5.1 x10(3)/uL (11/21/22 9:02 AM) 5.2 x10(3)/uL (11/20/22 8:57 AM) Albumin Level [3.5-5.2 Gram/dL] 3.8 Gram/dL (11/20/22 8:57 AM) Lymph % [17.0-53.0 %] 20.2 % (11/22/22 9:50 AM) 21.4 % (11/21/22 9:02 AM) 21.1 % (11/20/22 8:57 AM) Lymph # [1.0-3.5 x10(3)/uL] 1.5 x10(3)/uL (11/22/22 9:50 AM) 1.6 x10(3)/uL (11/21/22 9:02 AM) 1.6 x10(3)/uL (11/20/22 8:57 AM) MPV [8.7-12.0 fL] 9.1 fL (11/22/22 9:50 AM) 9.5 fL (11/21/22 9:02 AM) 9.8 fL (11/20/22 8:57 AM) Creatinine Level [0.60-1.20 mg/dL] 0.79 mg/dL (11/22/22 9:50 AM) 0.76 mg/dL (11/21/22 9:02 AM) 0.79 mg/dL (11/20/22 8:57 AM) 0.80 mg/dL (11/20/22 8:57 AM) Glucose POC2 [70-110 mg/dL] 66 mg/dL *LOW* (11/18/22 6:42 AM) 110 mg/dL (11/17/22 11:49 PM) 1Interpretive Data: eGFR calculation performed using the CKD-EPI 2021 equation (race variable excluded) 2Interpretive Data: eGFR calculation performed using the CKD-EPI 2021 equation (race variable excluded) 3Interpretive Data: eGFR calculation performed using the CKD-EPI 2021 equation (race variable excluded) 4Interpretive Data: eGFR calculation performed using the CKD-EPI 2021 equation (race variable excluded) Radiology Reports * Exam Date Time Procedure Performing Provider Status 11/20/22 3:[address] Abdomen W Rippy, Valente, Lead CT Te ch; Auth (Verified) Notes: (CT Abdomen W) Reason For Exam: renal abscess;Other (Please Specify) REPORT CT abdomen with contrast INDICATION: Renal abscess TECHNIQUE: CT of the abdomen was performed after the intravenous administration of 70 mL Isovue-370 contrast. Coronal and sagittal reconstructions were obtained. COMPARISON: CT abdomen and pelvis with contrast 11/16/2022 FINDINGS: Imaged lung bases are clear. No pericardial or pleural effusion. The wedge shaped hypodensity within the mid right kidney is again identified, mildly improved. The heterogeneous rounded focus within the lower pole of the right kidney is also slightly smaller measuring 1.9 cm, previously 2.4 cm. No new renal lesion. There is no hydronephrosis. The gallbladder is surgically absent. The liver, spleen, pancreas and adrenal glands are unremarkable. There is a fat-containing umbilical hernia. No bowel wall thickening. No free intraperitoneal fluid or fluid collection. No concerning osseous abnormality. IMPRESSION: 1. Mild improvement in the right-sided renal pyelonephritis, with suspicious focal abscess in the lower pole of the right kidney also smaller measuring 1.9 cm, previously 2.4 cm. Dictated by: Shilpa Alvarez M.D. Signed by Shilpa Alvarez M.D. on 11/21/2022 8:39 Final Dictated by: SHILPA DIXON MD-RAD Dictated DT/TM: 11/21/2022 8:39 am Interpreted and electronically signed by: SHILPA DIXON MD-RAD Signed DT/TM: 11/21/2022 8:39 am Vital Signs Most recent to oldest [Reference Range]: 1 2 3 Elisha Motor Response Obey commands (11/22/22 12:00 PM) Obey commands (11/22/22 8:00 AM) Obey commands (11/22/22 8:00 AM) Elisha Verbal Response Oriented (11/22/22 12:00 PM) Oriented (11/22/22 8:00 AM) Oriented (11/22/22 8:00 AM) [place] Eye Opening Response Spontaneous (11/22/22 12:00 PM) Spontaneous (11/22/22 8:00 AM) Spontaneous (11/22/22 8:00 AM) Elisha Coma Score 15 (11/22/22 12:00 PM) 15 (11/22/22 8:00 AM) 15 (11/22/22 8:00 AM) Temperature Source Oral (11/22/22 1:00 PM) Oral (11/22/22 8:00 AM) Oral (11/22/22 3:00 AM) Temperature Mode Fahrenheit (11/22/22 1:00 PM) Fahrenheit (11/22/22 8:00 AM) Fahrenheit (11/22/22 3:00 AM) Temperature, Fahrenheit [96.8-99.7 Deg F] 97.5 Deg F (11/22/22 1:00 PM) 98.6 Deg F (11/22/22 8:00 AM) 98.2 Deg F (11/22/22 3:00 AM) Clinical Temperature, C 37 Deg C (11/22/22 8:00 AM) 36.5 Deg C (11/21/22 8:00 AM) 36.7 Deg C (11/21/22 4:00 AM) Peripheral Pulse Rate [60-100 bpm] 64 bpm (11/22/22 3:00 AM) 61 bpm (11/21/22 9:09 PM) 76 bpm (11/19/22 3:42 AM) Heart Rate Monitored [60-100 bpm] 81 bpm (11/22/22 1:00 PM) 67 bpm (11/21/22 2:00 PM) 56 bpm *LOW* (11/21/22 8:00 AM) Respiratory Rate [14-20 Breaths/Min] 12 Breaths/Min *LOW* (11/22/22 1:00 PM) 18 Breaths/Min (11/22/22 8:00 AM) 16 Breaths/Min (11/22/22 3:00 AM) Blood Pressure Location Arm, right upper (11/22/22 8:00 AM) Arm, right upper (11/22/22 3:00 AM) Arm, right upper (11/21/22 9:09 PM) Blood Pressure Source Non-Invasive BP Device (11/22/22 8:00 AM) Non-Invasive BP Device (11/22/22 3:00 AM) Non-Invasive BP Device (11/21/22 9:09 PM) Blood Pressure Position Sitting (11/22/22 8:00 AM) Supine (11/22/22 3:00 AM) Supine (11/21/22 9:09 PM) Blood Pressure [90-140/60-90 mmHg] 127/85mmHg (11/22/22 1:00 PM) 127/67mmHg (11/22/22 8:00 AM) 111/60mmHg (11/22/22 3:00 AM) Oxygen Saturation [94-100 %] 100 % (11/22/22 1:00 PM) 97 % (11/22/22 8:00 AM) 98 % (11/22/22 3:00 AM) Oxygen Therapy Mode Room air (11/22/22 1:00 PM) Room air (11/22/22 8:00 AM) Room air (11/22/22 3:00 AM) Height/Length Measured 167.64 cm (11/17/22 11:00 PM) Height Source Stated (11/18/22 3:16 AM) Stated (11/18/22 2:10 AM) Stated (11/18/22 12:49 AM) Height Entry Format [place] (11/18/22 3:16 AM) [place] (11/18/22 2:10 AM) [place] (11/18/22 12:49 AM) Height/Length, [place] (ft) 5 ft (11/18/22 3:16 AM) 5 ft (11/18/22 2:10 AM) 5 ft (11/18/22 12:49 AM) Height/Length [place] 5.98 Inch (11/18/22 3:16 AM) 5.98 Inch (11/18/22 2:10 AM) 5.98 Inch (11/18/22 12:49 AM) CLINICALHEIGHT 167.59 cm (11/18/22 3:16 AM) 167.59 cm (11/18/22 2:10 AM) 167.59 cm (11/18/22 12:49 AM) Weight Source Stated (11/18/22 3:16 AM) Stated (11/18/22 2:10 AM) Stated (11/18/22 12:49 AM) [place] Body Weight 59 kg (11/18/22 3:16 AM) 59 kg (11/18/22 2:10 AM) 59 kg (11/18/22 12:49 AM) Routine Weight Source Other: stated (11/17/22 11:00 PM) Routine Weight, Kilograms 63.64 kg (11/17/22 11:00 PM) Routine Weight Calculation 63.64 kg (11/17/22 11:00 PM) Social History Social History Type Response Smoking Status Never smoker entered on: 11/16/22 Sex Female Hospital Discharge Instructions Patient Education 2022 13:50:38 Pyelonephritis, Adult Pyelonephritis, Adult Pyelonephritis is an infection that occurs in the kidney. The kidneys are the organs that filter a person's blood and move waste out of the bloodstream and into the urine. Urine passes from the kidneys, through tubes called ureters, and into the bladder. There are two main types of pyelonephritis: ??? Infections that come on quickly without any warning (acute pyelonephritis). ??? Infections that last for a long period of time (chronic pyelonephritis). In most cases, the infection clears up with treatment and does not cause further problems. More severe infections or chronic infections can sometimes spread to the bloodstream or lead to other problems with the kidneys. What are the causes? This condition is usually caused by: ??? Bacteria traveling from the bladder up to the kidney. This may occur after having a bladder infection (cystitis) or urinary tract infection (UTI). ??? Bladder infections caused from bacteria traveling from the bloodstream to the kidney. What increases the risk? This condition is more likely to develop in: ??? women. ??? Older people. ??? People who have any of these conditions: ??? Diabetes. ??? Inflammation of the prostate gland (prostatitis), in males. ??? Kidney stones or bladder stones. ??? Other abnormalities of the kidney or ureter. ??? Cancer. ??? People who have a catheter placed in the bladder. ??? People who are sexually active. ??? Women who use spermicides. ??? People who have had a prior UTI. What are the signs or symptoms? Symptoms of this condition include: ??? Frequent urination. ??? Strong or persistent urge to urinate. ??? Burning or stinging when urinating. ??? Abdominal pain. ??? Back pain. ??? Pain in the side or flank area. ??? Fever or chills. ??? Blood in the urine, or dark urine. ??? Nausea or vomiting. How is this diagnosed? This condition may be diagnosed based on: ??? Your medical history and a physical exam. ??? Urine tests. ??? Blood tests. You may also have imaging tests of the kidneys, such as an ultrasound or CT scan. How is this treated? Treatment for this condition may depend on the severity of the infection. ??? If the infection is mild and is found early, you may be treated with antibiotic medicines takenby mouth (orally). You will need to drink fluids to remain hydrated. ??? If the infection is more severe, you may need to stay in the hospital and receive antibiotics given directly into a vein through an IV. You may also need to receive fluids through an IV if you are not able to remain hydrated. After your hospital stay, you may need to take oral antibiotics for aperiod of time. Other treatments may be required, depending on the cause of the infection. Follow these instructions at home: Medicines ??? Take your antibiotic medicine as told by your health care provider. Do not stop taking the antibiotic even if you start to feel better. ??? Take sgss-rpm-tdoxyzy and prescription medicines only as told by your health care provider. General instructions ??? Drink enough fluid to keep your urine pale yellow. ??? Avoid caffeine, tea, and carbonated beverages. They tend to irritate the bladder. ??? Urinate often. Avoid holding in urine for long periods of time. ??? Urinate before and after sex. ??? After a bowel movement, women should cleanse from front to back. Use each tissue only once. ??? Keep all follow-up visits as told by your health care provider. This is important. Contact a health care provider if: ??? Your symptoms do not get better after 2 days of treatment. ??? Your symptoms get worse. ??? You have a fever. Get help right away if you: ??? Are unable to take your antibiotics or fluids. ??? Have shaking chills. ??? Vomit. ??? Have severe flank or back pain. ??? Have extreme weakness or fainting. Summary ??? Pyelonephritis is a urinary tract infection (UTI) that occurs in the kidney. ??? Treatment for this condition may depend on the severity of the infection. ??? Take your antibiotic medicine as told by your health care provider. Do not stop taking the antibiotic even if you start to feel better. ??? Drink enough fluid to keep your urine pale yellow. ??? Keep all follow-up visits as told by your health care provider. This is important. This information is not intended to replace advice given to you by your health care provider. Make sure you discuss any questions you have with your health care provider. Document Revised: 11/06/2021 Document Reviewed: 11/06/2021 [employer] Patient Education ?? 2022 [employer]. Follow Up Care 11/17/2022 19:24:06 With:Follow up with primary care provider Address:Unknown When:1 week H and P * AILYN SALOMON, TOLL PATROLMAN-MED: MODIFY, PERFORM Event Display: H and P Authored Date: [id number] Patient:??FINESSE MACHADO? Age:??26 Years? Sex:??Female? :??1995 Chief Complaint right flank pain History of Present Illness ?? Patient is a 26-year-old female with no PMH who presented to [facility] on 11/16/22 with complaints of rightflank pain, fever, and headache.?? She reports her symptoms began 3 days prior to presenting to the.?? She endorses nausea without vomiting.?? Denies dysuria.?? Denies diarrhea or constipation.?? Denies chest pain, SOB, cough, or chills.?? CT abdomen/pelvis shows cystitis and right-sided acute lobar nephronia (pyelonephritis that may be developing into abscesses).??Punctate focus of gas in the urinary bladder. UA??with moderate leukocytes, 3+ bacteria, and positive nitrite.??Cr 1.12. WBC 14.5. She was treated with IVFs and Rocephin prior to transfer. [facility] will admit for continued care. Review of Systems ?? As per HPI and a complete 14 point review of systems is otherwise negative. Physical Exam ?? General: 26??yo??female, alert and oriented, well nourished, NAD Neurologic: Awake, oriented X3, CN II-XII grossly intact HENT: Moist oral mucosa, no sinus tenderness, no throat erythema Eye: PERRL, EOMI. No scleral icterus Heart: S1S2, RRR, No murmur or gallop, No pedal edema Lungs: CTAB, non-labored respirations, no wheezes, crackles, or rales Abdomen: Soft, right flank, right sided tenderness, non-distended, + BS Musculoskeletal: Normal range of motion and strength Skin: Skin is warm and dry, no rashes or lesions Psychiatric: Cooperative, appropriate mood and affect Assessment and Plan 1. Pyelonephritis CT abdomen/pelvis - Cystitis and right-sided acute lobar nephronia (pyelonephritis that may be developing into abscesses).??Punctate focus of gas in the urinary bladder Continue Rocephin Medications for pain control Blood cultures, Urine culture pending Urology consulted for evaluation ? Disposition:?? Anticipate hospital admission to be > 24 hours for further care. Barriers to discharge:?? Urology evaluation.?? Awaiting blood cultures and urine culture. Likely home with family when cleared for discharge. ?? Medications Medications (6) Active Scheduled: (1) cefTRIAXone 2 g in 20 mL Sterile Water ??2 Gram 20 mL, IV Push, [id number] Continuous: (1) lactated ringers 1,000 mL ??1,000 mL, IntraVENous, 100 mL/Hr PRN: (4) acetaminophen 325 mg tab ??650 mg 2 Tab, Oral, Q4H acetaminophen 325 mg tab ??650 mg 2 Tab, Oral, Q4H acetaminophen/HYDROcodone 325/5 mg tab ??1 Tab, Oral, Q4H ondansetron 4 mg/2 mL inj ??4 mg 2 mL, IV Push, Q4H Home Medications (1) Active Bactrim DS 800 mg-160 mg oral tablet??1 Tab, Oral, BID Problem List/Past Medical History Ongoing No chronic problems Procedure/Surgical History ???Abnormal gallbladder function Allergies erythromycin Immunizations Up to date Code Status / Living Will Resuscitation Status - Ordered?-- Start: 11/17/22 19:29:00 EDT, Full Code, Continuous Order Social History Alcohol Alcohol Use History Yes. Substance Abuse Drug Use Hx: No. Use in Last 12 Months: No. Tobacco Smoking Status Never smoker. Family History Non-contributory Diagnostic Results ??Radiology Results (Last 48 hours)? [id number] -- 11/16/2022 19:07 ?? CT Abdomen Pelvis W?(11/16/2022 20:32) ?Result: ?INDICATION: Right-sided abdominal pain.TECHNIQUE: CT of the abdomen and pelvis with contrast. Coronal and sagittal reconstructions were obtained. ??Radiation dose reduction techniques included automated exposure control or exposure modulation based on body size. COMPARISON: None available.FINDINGS:Inferior thorax demonstrates no acute or significant appearing abnormality. Patient is status post cholecystectomy, with likely related mild prominence of the bile ducts. No acute or significant appearing abnormality of the liver, spleen, pancreas, left kidney, adrenal glands, rep roductive organs (including left ovarian corpus luteum), or bowel is identified. There is a trace amount of free fluid in the dependent pelvis. No free intra- abdominal pelvic air. There is abnormal thickening of the urinary bladder wall and there is a punctate focus of gas within the urinary bladder lumen. There are areas of abnormal attenuation of the right kidney that are favored to represent areas of acute lobar nephronia (pyelonephritis that may be developing into abscesses). No atherosclerotic changes are seen. No suspicious lymphadenopathy is seen. No acute osseous abnormality is seen.IMPRESSION:Cystitis and right- sided acute lobar nephronia (pyelonephritis that may be developing into abscesses). Recommend renal ultrasound following treatment for the apparent infection to exclude development of renal abscesses and exclude the less likely differential diagnostic consideration of solid right renal masses/tumors.Punctate focus of gas in the urinary bladder, probably related to catheterization of the urinary bladder, although nonspecific. Recommend clinical correlation.Trace amount of nonspecific free fluid in the dependent pelvis.Other findings, as above.Dictated by: Elian Vega M.D. Signed by Elian Vega M.D. on 11/16/2022 20:47 ?? Electronically Signed on11/17/2022 23:06 EDT AILYN SALOMON NP-MED Modified by: AILYN SALOMON NP-MEDon 11/17/22 23:06 EDT Consults * MAXIMILIANO WEBB MD-URO: PERFORM Event Display: Consults Authored Date: [id number] Patient:??FINESSE MACHADO? Age:??26 Years? Sex:??Female? :??1995 Chief Complaint renal; abscess. Reason for Consultation right flank pain. CT with 2.4 cm renal abscess + pyelo. WBC wnl. afeb. History of Present Illness right flank pain. CT with 2.4 cm renal abscess + pyelo. WBC wnl. afeb. Review of Systems Gen: No fever. No chills. ?? HEENT: No cough or runny nose. No recent vision or hearing changes ?? Skin: No skin rashes. No skin lesions ?? CV: No chest pain. No palpitation ?? Pulm: No shortness of breath. No cough. ?? GI: No nausea. No vomit. No nausea. No constipation requiring meds/intervention. No diarrhea ?? MS: No chronic joint aches. No chronic muscle aches ?? Heme: No hx of easy bleeding. No hx of easy bruising. ?? Neuro: No hx of seizures. No hx of chronic headaches requiring medication ?? Psych: No depression. No anxiety. ?? : per HPI Physical Exam Vitals & Measurements T:??37.2?C ?? T:??98.9?F ??(Oral)?? TMIN:??98.9?F ??(Oral)?? TMAX:??37.2?C ?? HR:??101??(Peripheral)?? RR:??16?? BP:??130/85?? SpO2:??96%?? WT:??63.64??kg?? WT:??63.64??kg? afeb, VSS Gen: Alert. No distress HEENT: NCAT, normal conjunctiva SKIN: No skin lesions, no bruising on exposed skin CV: RRR, palpable radial pulse. no c/c/e RESP: non labored, normal to percussion. GI: abd s/nt/nd, no hernia noted. ? Assessment/Plan 1.??Pyelonephritis ? pyelonephritis right renal abscess. ?? PLAN: CT independently reviewed/interpreted as above. labs reviewed. will cont with IV abx - check Ucx. Rocephin for now. serial imaging. if refractory, then will need OR drainage of abscess. ?? Maximiliano Webb MD [facility] ? Problem List/Past Medical History Ongoing No chronic problems Historical No qualifying data Procedure/Surgical History ???Abnormal gallbladder function Medications Medications (6) Active Scheduled: (1) cefTRIAXone 2 g in 20 mL Sterile Water ??2 Gram 20 mL, IV Push, [id number] Continuous: (1) lactated ringers 1,000 mL ??1,000 mL, IntraVENous, 100 mL/Hr PRN: (4) acetaminophen 325 mg tab ??650 mg 2 Tab, Oral, Q4H acetaminophen 325 mg tab ??650 mg 2 Tab, Oral, Q4H acetaminophen/HYDROcodone 325/5 mg tab ??1 Tab, Oral, Q4H ondansetron 4 mg/2 mL inj ??4 mg 2 mL, IV Push, Q4H Home Medications (1) Active Bactrim DS 800 mg-160 mg oral tablet??1 Tab, Oral, BID Allergies erythromycin Social History Alcohol Alcohol Use History Yes. Substance Abuse Drug Use Hx: No. Use in Last 12 Months: No. Tobacco Smoking Status Never smoker. Electronically Signed on11/18/2022 08:32 EDT MAXIMILIANO WEBB MD-URO Discharge summary * LUIS ALBERTO SALINAS MD-INT: PERFORM Event Display: Discharge Summary Authored Date: Patient:??FINESSE MACHADO? Age:??27 Years? Sex:??Female? :??1995 Admit Date ? 11/17/2022 19:23 ? Discharge Date: 2022 Attending _ Service/Team _ Consulting Physicians _ Primary Discharge Diagnosis Pyelonephritis with suspected abscess Secondary Diagnosis(es) _ Discharge Follow Up ?Follow up with primary care provider -??Within 1 week ?? Follow Up Information/Tasks: _ Code Status ?Start: 11/17/22 19:29:00 EDT, Full Code, Continuous Order Brief Admission HPI/Presentation: _ Hospital Course Patient is a 26-year-old female with no PMH who presented to [facility] on 11/16/22 with complaints of rightflank pain, fever, and headache.?? She reports her symptoms began 3 days prior to presenting to the.?? She endorses nausea without vomiting.?? Denies dysuria.?? Denies diarrhea or constipation.?? Denies chest pain, SOB, cough, or chills.?? CT abdomen/pelvis shows cystitis and right-sided acute lobar nephronia (pyelonephritis that may be developing into abscesses).??Punctate focus of gas in the urinary bladder. UA??with moderate leukocytes, 3+ bacteria, and positive nitrite.??Cr 1.12. WBC 14.5. ? 1. Pyelonephritis with suspected abscess,??cultures grew E. coli and is on??IV Rocephin and underwent repeat CT which revealed slightly improving pyelonephritis with abscess at the??lower pole??of the right??kidney.?? Urology did evaluate and cleared patient to be discharged home and will be placedon 1 more week of??cefdinir as an outpatient basis. ??Advised her to follow-up with urology and stated she would follow-up with??urologist in [place] or [place].?? She is improving quite well clinically and her flank pain has now resolved. ?? Time taken to discharge 40 minutes ? Significant Findings _ Procedures and Treatment Provided No qualifying data available. Physical Exam Vitals & Measurements T:??37?C ?? T:??97.5?F ??(Oral)?? TMIN:??97.5?F ??(Oral)?? TMAX:??37?C ?? HR:??81??(Monitored)?? HR:??64??(Peripheral)?? RR:??12?? BP:??127/85?? SpO2:??100%?? General: [Alert and oriented, well nourished, no acute distress]. Neurologic: [Awake, alert, and oriented X3, CN II-XII intact]. Eye: [PERRL, EOMI, normal conjunctiva]. HENT: [Normocephalic, clear tympanic membranes, normal hearing, moist oral mucosa, no scleral icterus, no sinus tenderness]. Neck: [Supple, non-tender, no carotid bruits, no JVD, no lymphadenopathy]. Lungs: [Clear to auscultation and percussion, non-labored respiration]. Heart: [Normal rate, regular rhythm, no murmur, gallop or edema]. Abdomen: [Soft, non-tender, non-distended, normal bowel sounds, no masses]. Musculoskeletal: [Normal range of motion and strength, no tenderness or swelling]. Skin: [Skin is warm, dry and pink, no rashes or lesions]. Psychiatric: [Cooperative, appropriate mood and affect]. Discharge Plan _ 1.??Pyelonephritis??N12 Orders: cefdinir, 300 mg 1 Cap, Oral, Cap, Q12H, X 7 Day(s), # 14 Cap, 0 Refill(s), [facility]: [facility], 11/18/22 3:16:00 EDT, CLINICALHEIGHT, 63.64, kg, 11/16/22 19:41:00 EDT, CLINICALWEIGHT, 167.59 Discharge Discharge Diet Instructions Discharge General Instructions Physician to Notify if Emergency Discharge Orders Discharge - Ordered?-- Start: 11/22/22 13:42:00 EDT, Discharge to: Home Discharge Diet Instructions - Ordered?-- Diet: Resume usual diet as tolerated Discharge General Instructions - Ordered?-- Discharge activity: Activity as tolerated Physician to Notify if Emergency - Ordered?-- Or request a Resident who is 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 Number: [phone] and request the medical specialty. _ Patient Discharge Condition _ Discharge Disposition ?Home _ Discharge Medications Home Medications (1) Active cefdinir 300 mg oral capsule??300 mg = 1 Cap, Oral, Q12H Routine Labs - Last 24 Hours ??NOV 22 09:50 ? 138 ?104 ?7 ?/ ? 87 ?4.1?27.0 ?0.79 ?\ ? NOV 22:50 ?\? 13.0 ?/ ? 7.3 ?279 ?/? 36.6 ?\ Diagnostic Results No Radiology Results Found Electronically Signed on2022 17:20 EDT LUIS ALBERTO SALINAS MD-INT Progress note * LUIS ALBERTO SALINAS MD-INT: PERFORM Event Display: Progress Note Authored Date: [id number] Patient:??FINESSE MACHADO? Age:??26 Years? Sex:??Female? :??1995 Subjective Patient is lying in the bed and does not appear to be in distress. ??Denies nausea, vomiting, abdominal pain, chest pain.?? Her flank pain is improving. Physical Exam Vitals & Measurements T:??36.5?C ?? T:??97.7?F ??(Oral)?? TMIN:??97.7?F ??(Oral)?? TMAX:??36.5?C ?? HR:??56??(Monitored)?? RR:??16?? BP:??108/69?? SpO2:??98%?? General: 26??yo??female, alert and oriented, well nourished, NAD Neurologic: Awake, oriented X3, CN II-XII grossly intact HENT: Moist oral mucosa, no sinus tenderness, no throat erythema Eye: PERRL, EOMI. No scleral icterus Heart: S1S2, RRR, No murmur or gallop, No pedal edema Lungs: CTAB, non-labored respirations, no wheezes, crackles, or rales Abdomen: Soft, right flank, right sided tenderness, non-distended, + BS Musculoskeletal: Normal range of motion and strength Skin: Skin is warm and dry, no rashes or lesions Psychiatric: Cooperative, appropriate mood and affect Blood Glucose Checks No qualifying data available. Intake & Output Intake & Output Totals Last 24 Hours (7a-7a) ?? Intake (6 Events) ?Medications (28 mL) Output (0 Events) ?No output events found in the last 24 hours. ? Input Total: ?28 mL Output Total: ?0 mL Balance: ?28 mL ?? Assessment and Plan 1.??Pyelonephritis ?? 1. Pyelonephritis with suspected abscess,??cultures grew E. coli and is on??IV Rocephin and underwent repeat CT which revealed slightly improving pyelonephritis with abscess at the??lower pole??ofthe right??kidney.?? Most likely home tomorrow. ?? 2.??Lovenox for DVT prophylaxis. ?? 3. ??CODE STATUS is full code. Medications Medications (8) Active Scheduled: (2) cefTRIAXone 2 g in 20 mL Sterile Water ??2 Gram 20 mL, IV Push, [id number] enoxaparin 40 mg/0.4 mL inj ??40 mg 0.4 mL, SubCutaneous, Daily Continuous: (1) lactated ringers 1,000 mL ??1,000 mL, IntraVENous, 100 mL/Hr PRN: (5) acetaminophen 325 mg tab ??650 mg 2 Tab, Oral, Q4H acetaminophen 325 mg tab ??650 mg 2 Tab, Oral, Q4H acetaminophen/HYDROcodone 325/5 mg tab ??1 Tab, Oral, Q4H morphine 2 mg/1 mL PF inj ??2 mg 1 mL, IV Push, Q6H ondansetron 4 mg/2 mL inj ??4 mg 2 mL, IV Push, Q4H Home Medications (1) Active Bactrim DS 800 mg-160 mg oral tablet??1 Tab, Oral, BID Allergies erythromycin Routine Labs - Last 24 Hours ??NOV 21:02 ? 138 ?106 ?9 ?/ ? 88 ?4.0?25.0 ?0.76 ?\ ? NOV 21:02 ?\? 12.0 ?/ ? 7.4 ?254 ?/?L 34.6?\ Anion Gap: 7 Calcium Level: 9.1 mg/dL Coagulation Results (Current Encounter/Past 24 Hours) No Coagulation Results Found (Past 24 Hours) No qualifying data available. Electronically Signed 11/21/2022 13:59 NOHEMIT LUIS ALBERTO SALINAS MD-INT * UZMA THOMPSON MD-URO: PERFORM Event Display: Progress Note Authored Date: [id number] Patient:??FINESSE MACHADO? Age:??26 Years? Sex:??Female? :??[address] abd/pelvis W that was performed this afternoon. Both the right mid pole area of hypoenhancement and right lower pole lesion are significantly improved. UCx sensitive to rocephin. Recommend course of home- going??PO abx per primary team. Okay for discharge from urology standpoint. Will arrange outpatient follow-up with urology. Will sign-off. Please call with any further questions or concerns. ? Uzma Thompson MD PGY-3 Electronically Signed on11/20/2022 19:05 EDT UZMA THOMPSON MD-URO MAXIMILIANO WEBB MD-URO * UZMA THOMPSON MD-URO: PERFORM UZMA THOMPSON MD-URO: PERFORM, MODIFY UZMA THOMPSON MD-URO: MODIFY Event Display: Progress Note Authored Date: Patient:??FINESSE MACHADO? Age:??26 Years? Sex:??Female? :??1995 Subjective AF HDS. Endorsing R??flank pain??with radiation to the leg, chills, and nausea. No vomiting, tolerating regular??diet. Reports good urine output, no dysuria or hematuria. Intake & Output Intake & Output Totals Last 24 Hours (7a-7a) ?? Intake (9 Events) ?Continuous Infusions (200 mL) ??Medications (29 mL) Output (0 Events) ?No output events found in the last 24 hours. ? Input Total: ?229 mL Output Total: ?0 mL Balance: ?229 mL ?? Vital Signs T:??36.5?C ?? T:??97.7?F ??(Oral)?? TMIN:??97.7?F ??(Oral)?? TMAX:??36.5?C ?? HR:??72??(Monitored)?? RR:??16?? BP:??115/74?? SpO2:??97%?? Physical Exam ?? General: Well-nourished female.??Awake, alert, in??no acute distress. Pulm: Normal WOB, on RA. Abdomen: Soft, non-distended. Mild tenderness to palpation RLQ. +Bilateral CVA tenderness, R>L. Extremities:??No swelling VTE Risk Total Score VTE Prophylaxis - Surgical ?Enoxaparin??40 mg, SubCutaneous, Inj, Daily, Routine, Start 11/19/22 10:00:00 EDT, Indication: DVT/PE Prophylaxis, 11/18/22 16:34:00 EDT??(LUIS ALBERTO SALINAS) Assessment and Plan 26 yo F with no PMH admitted??3 days ago for pyelonephritis and 2.4 cm renal abscess. ?? Labs reviewed: WBC 6.4 < 7.4 < 8.3 < 14.5 Cr 0.77 < 0.75 < 0.82 < 1.12 ?? Urine Cx: +E. coli, sensitive to Rocephin. Blood Cx: NGTD ?? CT A/P 11/16/22 independently reviewed with 2.4 cm renal abscess + pyelo. ?? PLAN: -F/u labs -Repeat CT A/P to evaluate renal abscess -Continue abx per primary ? Cece Andrade, MS4 ?? Uzma Thompson MD PGY-3 Medications Medications (8) Active Scheduled: (2) cefTRIAXone 2 g in 20 mL Sterile Water ??2 Gram 20 mL, IV Push, [id number] enoxaparin 40 mg/0.4 mL inj ??40 mg 0.4 mL, SubCutaneous, Daily Continuous: (1) lactated ringers 1,000 mL ??1,000 mL, IntraVENous, 100 mL/Hr PRN: (5) acetaminophen 325 mg tab ??650 mg 2 Tab, Oral, Q4H acetaminophen 325 mg tab ??650 mg 2 Tab, Oral, Q4H acetaminophen/HYDROcodone 325/5 mg tab ??1 Tab, Oral, Q4H morphine 2 mg/1 mL PF inj ??2 mg 1 mL, IV Push, Q6H ondansetron 4 mg/2 mL inj ??4 mg 2 mL, IV Push, Q4H Home Medications (1) Active Bactrim DS 800 mg-160 mg oral tablet??1 Tab, Oral, BID Routine Labs - Last 24 Hours ??NOV 19:37 ? 140 ?109 ?10 ?/ ? 78 ?4.2?30.0 ?0.77 ?\ ? NOV 19:37 ?\?L 11.6?/ ? 6.4 ?181 ?/?L 33.4?\ Anion Gap:??1??Low Calcium Level: 9 mg/dL Imaging Results (Last 24 Hours) No Radiology Results Found Problem List/Past Medical History Ongoing No chronic problems Historical No qualifying data Procedure/Surgical History ???Abnormal gallbladder function Allergies erythromycin Electronically Signed on11/20/2022 09:19 EDT UZMA THOMPSON MD-URO Modified by: Cece Andrade, 2021 Medical Studenton 11/20/22 06:08 EDT Modified by: UZMA THOMPSON MD-UROon 11/20/22 09:19 EDT Patient Care team information Care Team Personnel Name: POLINA PHILIP DR Position: [facility] Referring Provider - No Access Member Role: Primary Care Physician Care Team Related Persons Name: CANDICE GUERRERO
--- OUTSIDE RECORDS SUMMARY | 2023-09-03 21:31 | XMS_ITS | Continuity of Care Document ---
Author Name Unknown Address [address] [place], [place] [id number] Organization [facility] Phone Care Team Providers Care Agriculture Inspector Name Role Phone OUMAR MENJIVAR Primary Attending [phone] OUMAR MENJIVAR Admitting OUMAR MENJIVAR Unavailable DELANEY CHRISTIE Primary Care TREATMENT PLAN DISCHARGE MEDICATIONS Status RXNORM Medication Dose Route Frequency Dates Comments U pdated By Patient discharge medication information is not available. PATIENT OPEN ORDERS Code System Description Frequency Occurrences Priority Start Date Ordering Physician Updated By 630-4 LOINC Bacteria identified in Urine by Culture ONE TIME 0 Routine April 29, 2023 2:51:00 PM [facility] OTTO Spencer MD [id number] on April 29, 2023 2:51:00 PM [facility] SCHEDULED PROCEDURES Code System Description Status Scheduled [...] Description Effective Dates Offered Cessation Comment UpdatedBy [id number] Smoking Status Unknown If Ever Smoked SOCIAL [...] available. ENCOUNTERS ENCOUNTER INFORMATION Reason for Visit R10.9 UNSPECIFIED AB DOMINAL PAIN Admission April 29, 2023 2:50:[address] [address] Discharge April 29, 2023 9:30:00 PM [facility] DISCHARGED TO HOME OR SELF CARE ENCOUNTER DIAGNOSES Notes information is not harinder ilable. Code System Diagnosis Onset Date Diagnosis information is not available. ABSTRACT DIAGNOSES Code System Diagnosis Updated By R10.9 ICD10 UNSPECIFIED ABDOMINAL PAIN P [id number] on April 30, 2023 12:50:06 PM UTC R10.9 ICD10 UNSPECIFIED ABDOMINAL PAIN P [id number] on April 30, 2023 12:50:06 PM UTC CARE TEAM Care Agriculture Inspector Role OUMAR MENJIVAR Primary Attending OUMAR MENJIVAR Admitting OUMAR MENJIVAR Referring DELANEY CHRISTIE Primary Care CARE TEAM CARE distance learning coordinator Role on Team Status Start Date End Date Update d By OTTO PHILIP Referring normal April 29, 2023 9:25:19 PM [place] April 29, 2023 5:00:00 AM UTC [id number] on April 29, 2023 9:25:19 PM [facility] OTTO PHILIP Attending normal April 29, 2023 9:25:19 PM [facility] April 29, 2023 5:00:00 AM UTC [id number] on April 29, 2023 9:25:19 PM [facility] OTTO PHILIP Admitting normal April 29, 2023 9:25:18 PM [place] April 29, 2023 5:00:00 AM UTC [id number] on April 29, 2023 9:25:19 PM [facility] PRATIK BALTAZAR APRN PCP normal April 2:51:10 PM [place] April 29, 2023 5:00:00 AM UTC [id number] on April 29, 2023 9:25:19 PM [facility]
--- OUTSIDE RECORDS SUMMARY | 2023-09-03 21:31 | XMS_ITS | Continuity of Care Document ---
Author Name Unknown Address [address] [place], [place] [id number] Organization [facility] Phone Care Team Providers Care Retail Marketing Coordinator Name Role Phone LEANN LOZANO Primary Attending LEANN LOZANO Admitting LEANN LOZANO Unavailable LEANN LOZANO Primary Care TREATMENT PLAN DISCHARGE MEDICATIONS Status RXNORM Medication Dose Route Frequency Dates Comments U pdated By Patient discharge medication information is not available. PATIENT OPEN ORDERS Code System Description Frequency Occurrences Priority Start Date Ordering Physician Updated By 630-4 LOINC Bacteria identified in Urine by Culture ONE TIME 0 Routine May 18, 2023 4:36:00 PM [facility] MARTA Jenkins THERAPEUTIC CASE MANAGER [id number] on May 18, 2023 4:38:00 PM [facility] SCHEDULED PROCEDURES Code System Description Status Scheduled [...] Description Effective Dates Offered Cessation Comment UpdatedBy [id number] Smoking Status Unknown If Ever Smoked SOCIAL [...] available. ENCOUNTERS ENCOUNTER INFORMATION Reason for Visit R30.0 Admission May 18, 2023 4:36:[address] [address] Discharge May 18, 2023 5:36:00 PM [facility] DISCHARGED TO HOME OR SELF CARE ENCOUNTER DIAGNOSES Notes information is not harinder ilable. Code System Diagnosis Onset Date Diagnosis information is not available. ABSTRACT DIAGNOSES Code System Diagnosis Updated By Abstract Diagnosis informati on is not available. CARE TEAM Care Retail Marketing Coordinator Role LEANN LOZANO Primary Attending LEANN LOZANO Admitting LEANN LOZANO Referring LEANN LOZANO Primary Care CARE TEAM CARE flavor extractor Role on Team Status Start Date End Date Update d By MARTA DUNAWAY Referring normal May 18, 2023 5:00:00 AM [facility] May 18, 2023 5:36:00 PM [facility] [id number] on May 18, 2023 8:10:17 PM [facility] MARTA DUNAWAY Attending normal May 18, 2023 5:00:00 AM [facility] May 18, 2023 5:36:00 PM [facility] [id number] on May 18, 2023 8:10:17 PM [facility] MARTA DUNAWAY Admitting normal May 18, 2023 5:00:00 AM [facility] May 18, 2023 5:36:00 PM [facility] [id number] on May 18, 2023 8:10:17 PM [facility] MARTA DUNAWAY PCP normal May 18, 2023 4:36:49 PM [facility] May 18, 2023 5:36:00 PM [facility] [id number] on May 18, 2023 8:10:17 PM [facility]
--- OUTSIDE RECORDS SUMMARY | 2023-09-03 21:31 | XMS_ITS | Continuity of Care Document ---
Author Name Unknown Address [address] [place], [place] [id number] Organization [facility] Phone Care Team Providers Care Manager Convention Name Role Phone CLEO LEVI Primary Attending [phone] LEANN LOZANO Primary Care CLEO LEVI Admitting [phone] CLEO LEVI Unavailable ALLERGIES AND ADVERSE REACTIONS ALLERGIES AND ADVERSE REACTIONS Code System Allergy Substance Adverse Reaction Date Reaction (Severity) Comment Status Reported By Updated By No Known Allergies [id number] on July 04, 2023 3:07:12 PM UTC RESULTS Patient: CARTER Barney Date of : [birth year] 9 LABORATORY RESULTS ORDER 100: UA AND MICRO/CULT IF INDICATED (LOINC: 07444-7) ORDER DATE: July 04, 2023 2:59:00 PM UTC Specimen Source: URINE Specimen Type: Urine specime n PERFORMING LAB: [address] [id number] Result Comment: Final Result Date: July 04, 2023 3:12:00 PM UTC (TECH: [facility]) LOINC TEST FLAG RESULT REFERENCE RANGE UPDA RAHEEL BY 5778-6 Color of Urine N yellow YELLOW July 04, 2023 3:12:00 PM UTC (TECH: [facility]) 5767-9 Appearance of Urine N clear CLEAR July 04, 2023 3:12:00 PM UTC (TECH: [facility]) 5792-7 Glucose [Mass/volume] in Urine by Test strip N NORM NORMAL July 03 3:12:00 PM UTC (TECH: [facility]) 32914-6 Bilirubin.total [Mass/volume] in Urine by Automated test strip N NEGATIVE NEGATIVE July 04, 2023 3:12:00 PM UTC (TECH: [employer]) 5797-6 Ketones [Mass/volume] in Urine by Test strip N NEGATIVE NEGATIVE July 03 3:12:00 PM UTC (TECH: [facility]) 2965-2 Specific gravity of Urine N 1.020 1.005 - 1.035 July 04, 2023 3:12:00 PM UTC (TECH: 2canM) 65103-3 Erythrocytes [#/volume] in Urine by Automated test strip N 250 (4+) /mcL NEGATIVE July 04, 2023 3:12:00 PM UTC (TECH: 2canM) 74628-2 pH of Urine by Automated test strip N 5.00 5.0 - 7.5 July 04, 2023 3:12:00 PM UTC (TECH: [facility]) 64888-7 Protein [Presence] in Urine by Test strip N 30 (1+) mg/dL NEGATIVE July 04, 2023 3:12:00 PM UTC (TECH: 2canM) 84040-8 Urobilinogen [Mass/volume] in Urine by Automated test strip N NORM NORMAL July 04, 2023 3:12:00 PM UTC (TECH: 2canM) 14473-7 Nitrate [Presence] in Urine N NEGATIVE NEGATIVE July 04, 2023 3:12:00 PM UTC (TECH: [facility]) 88138-6 Leukocytes [#/volume] in Urine by Test strip N NEGATIVE NEGATIVE July 04, 2023 3:12:00 PM UTC (TECH: 2canM) 47883-0 Other elements in Urine sediment N CONTAMINATED July 04, 2023 3:12:00 PM UTC (TECH: 2canM) 96623-7 Microscopic observation [Identifier] in Urine sediment by Light microscopy N YES July 04, 2023 3:12:00 PM UTC (TECH: 2canM) 53232-0 Erythrocytes [#/area] in Urine sediment by Microscopy high power field N 5-10 0-3 July 04, 2023 3:12:00 PM UTC (TECH: [facility]) 5821-4 Leukocytes [#/area] in Urine sediment by Microscopy high power field N 0-3 NONE SEEN July 04, 2023 3:12:00 PM UTC (TECH: [facility]) 31191-3 Epithelial cells.squamous [#/area] in Urine sediment by Microscopy high power field >30 NONE SEEN July 04, 2023 3:12:00 PM UTC (TECH: [facility]) 5769-5 Bacteria [#/area] in Urine sediment by Microscopy high power field N TRACE NONE SEEN July 04, 2023 3:12:00 PM UTC (TECH: [employer]) 66960-3 Mucus [#/area] in Urine sediment by Microscopy low power field N TRACE NONE SEEN July 04, 2023 3:12:00 PM UTC (TECH: [facility]) ORDER 200: INFLUENZA A/B SCR EEN (LOINC: 14002-4) ORDER DATE: July 04, 2023 2:59:00 PM UTC Specimen Source: Swab Specimen Type: Swab PERFORMING LAB: [address] [id number] Result Comment: Final Result Date: July 04, 2023 3:13:00 PM UTC (TECH: [facility]) LOINC TEST FLAG [place] [address]-4 Influenza virus A Ag [Presence] in Nose N NEGATIVE NEGATIVE July 03 3:13:00 PM UTC (TECH: [facility]) 95959-5 Haemophilus influenz ae B Ag [Presence] in Serum POSITIVE NEGATIVE July 04, 2023 3:13:00 PM UTC (TECH: [facility]) 49287-9 Internal control result N PASS PASS July 04, 2023 3:13:00 PM UTC (TECH: [facility]) LABORATORY NARRATIVE RESULTS Information is not available RADIOLOGY RESULTS Information is not available PATHOLOGY NARRATIVE RESULTS Information is not available MICROBIOLOGY RESULTS No Micro Labs/Results Exist for Patient BLOOD ADMIN RESULTS Information is not available MEDICATIONS HOME MEDICATIONS Status RXNORM NDC Medication Dose Route Frequency Dates Comments Reported By Updated By Patient not on Self-Medications [id number] on July 04, 2023 3:07:12 PM UTC DISCHARGE MEDICATIONS Status RXNORM NDC Medication Dose Route Frequency Dates Comments Physician Updated By No Discharge Medication Info rmation Available INPATIENT MEDICATIONS Status RXNORM NDC Medication Dose Route Frequency Rat e Quantity Dates Comments Physician Updated By No Inpatient Medication Info rmation Available SOCIAL HISTORY SOCIAL HISTORY SNOMED-CT Social History Element Description Effective Dates Offered Cessation Comment UpdatedBy [id number] Smoking Status Unknown If Ever Smoked SOCIAL HISTORY - Gender Sex: Female SOCIAL HISTORY - Status : status i nformation is not available Intention in Next Year: intention information is not available SOCIAL HISTORY - Sexual Behavior Sexual Orientation Gender Identity SNOMED-CT Description SNO MED -CT Description Activity Level No of Partners Partner Type UpdatedBy Information is not available VITAL SIGNS PATIENT VITAL SIGNS This section displays the mo st recent value for each vital sign as of July 06, 2023 10:31:17 AM UTC Loinc Code Vital Sign Activity Date Result Updated By 8310-5 Body temperature July 04, 2023 2:52:15 PM UTC 99.6 [degF] [id number] on July 05, 2023 5:04:33 PM UTC 09160-5 Body weight Measured July 04 5:04:35 PM UTC 63.503 kg (140.0 lb) [id number] on July 05, 2023 5:04:35 PM UTC 8462-4 Diastolic blood pressure July 04, 2023 2:52:15 PM UTC 83.0 mm[Hg] [id number] on July 05, 2023 5:04:33 PM UTC 8867-4 Heart rate July 04, 2023 2:59:00 PM UTC 103 /min [id number] on July 05, 2023 5:04:35 PM UTC 20226-7 Oxygen saturation in Arterial blood by Pulse oximetry July 04, 2023 2:59:00 PM UTC 100.0 % [id number] on July 05, 2023 5:04:35 PM UTC 9279-1 Respiratory rate July 04, 2023 2:52:15 PM UTC 18 /min [id number] on July 05, 2023 5:04:33 PM UTC 8480-6 Systolic blood pressure July 04, 2023 2:52:15 PM UTC 130.0 mm[Hg] [id number] on July 05, 2023 5:04:33 PM UTC PEDIATRIC GROWTH CHART - VITAL SIGNS This section displays Head C ircumference Percentile, Weight for Length Percentile and BMI Percentile Loinc Code Pediatric Measure Age (Months) Result Updat ed By No Pediatric Growth Chart Pe rcentile Information Available. HEALTH CONCERNS Problems Concern Status Health Concern problem infor mation not available. Smoking Status Status Years Used Consumed packs p er day Health Concern smoking histo ry information not available. Family History Concern Status Health Concern family histor y information not available. ENCOUNTERS ENCOUNTER INFORMATION Reason for Visit FEVER Admission July 04, 2023 2:43:00 PM [facility] [address] [facility] [address] Discharge July 04, 2023 5:04:00 PM [facility] DI SCHARGED TO HOME OR SELF CARE ENCOUNTER DIAGNOSES Notes information is not harinder ilable. Code System Diagnosis Onset Date Diagnosis information is not available. ABSTRACT DIAGNOSES Code System Diagnosis Updated By R50.9 ICD10 FEVER, UNSPECIFIED [id number] o n July 06, 2023 10:30:54 AM [facility] M79.10 ICD10 MYALGIA, UNSPECIFIED SITE PQ [id number] on July 06, 2023 10:30:54 AM [facility] R09.89 ICD10 OTHER SPECIFIED SYMPTOMS AND SIGNS INVOLVING THE CIRCULATORY AND RESPIRATORY SYSTEMS [id number] on July 06, 2023 10:30:54 AM [facility] J10.1 ICD10 INFLUENZA DUE TO OTHER IDENTIFIED INFLUENZA VIRUS WITH OTHER RESPIRATORY MANIFESTATIONS [id number] on July 06, 2023 10:30:54 AM [facility] CARE TEAM Care Manager Convention Role CLEO LEVI Primary Attending LEANN LOZANO Primary Care CLEO LEVI Admitting CLEO LEVI Referring CARE TEAM CARE hand clerical verifier Role on Team Status Start Date End Date Update d By AMIAT PHILIP Referring normal July 04, 2023 3:37:27 PM [facility] July 04, 2023 4:00:00 AM [facility] [id number] on July 04, 2023 3:37:27 PM [facility] AMITA PHILIP Attending normal July 04, 2023 3:37:27 PM [facility] July 04, 2023 4:00:00 AM [facility] [id number] on July 04, 2023 3:37:27 PM [facility] AMITA PHILIP Admitting normal July 04, 2023 3:37:27 PM [facility] July 04, 2023 4:00:00 AM [facility] [id number] on July 04, 2023 3:37:27 PM [facility] MARTA PALOMARESP PCP normal July 04, 2023 2:43:30 PM [facility] July 04, 2023 4:00:00 AM [facility] [id number] on July 04, 2023 3:37:27 PM [facility]
--- OUTSIDE RECORDS SUMMARY | 2023-09-03 21:31 | XMS_ITS | Continuity of Care Document ---
Author Name Unknown Address [address] [place], [place] [id number] Organization [facility] Phone Care Team Providers Care Plastic Eye Technician Name Role Phone OUMAR MENJIVAR Primary Attending OUMAR MENJIVAR Admitting OUMAR MENJIVAR Unavailable DELANEY [...] 0 Routine April 29, 2023 2:51:00 PM [facility] OTTO Spencer MD [id number] on April 29, 2023 2:51:00 PM [facility] SCHEDULED PROCEDURES Code System Description Status Scheduled [...] Description Effective Dates Offered Cessation Comment UpdatedBy [id number] Smoking Status Unknown If Ever Smoked SOCIAL [...] PAIN Admission April 29, 2023 2:50:[address] [address] Discharge April 29, 2023 9:30:00 PM [facility] DISCHARGED TO HOME OR SELF CARE ENCOUNTER DIAGNOSES Notes information is not harinder ilable. Code System Diagnosis Onset Date Diagnosis information is not available. ABSTRACT DIAGNOSES Code System Diagnosis Updated By Abstract Diagnosis informati on is not available. CARE TEAM Care Plastic Eye Technician Role OUMAR MENJIVAR Primary Attending OUMAR MENJIVAR Admitting OUMAR MENJIVAR Referring DELANEY CHRISTIE Primary Care CARE TEAM CARE transfer car operator Role on Team Status Start Date End Date Update d By OTTO PHILIP Referring normal April 29, 2023 9:25:19 PM [facility] April 29, 2023 9:30:00 PM [facility] [id number] on April 29, 2023 9:25:19 PM [facility] OTTO PHILIP Attending normal April 29, 2023 9:25:19 PM [facility] April 29, 2023 9:30:00 PM [facility] [id number] on April 29, 2023 9:25:19 PM [facility] OTTO PHILIP Admitting normal April 29, 2023 9:25:18 PM [facility] April 29, 2023 9:30:00 PM [facility] [id number] on April 29, 2023 9:25:19 PM [facility] PRATIK BALTAZAR APRN PCP normal April 2:51:10 PM [facility] April 29, 2023 9:30:00 PM [facility] [id number] on April 29, 2023 9:25:19 PM [facility]
--- OUTSIDE RECORDS SUMMARY | 2023-09-03 21:31 | XMS_ITS | Continuity of Care Document ---
Author Name Unknown Address [address] [place], [place] [id number] Organization [email or web address] Phone Care Team Providers Care Banquet Waiter/Waitress Name Role Phone BOO SCHMITT Admitting BOO SCHMITT Primary Attending LEANN LOZANO Primary Care [phone] BOO SCHMITT Unavailable ALLERGIES AND ADVERSE REACTIONS ALLERGIES AND ADVERSE REACTIONS Code System Allergy Substance Adverse Reaction Date Reaction (Severity) Comment Status Reported By Updated By No Known Allergies [id number] on July 04, 2023 3:07:12 PM [facility] MEDICATIONS HOME MEDICATIONS Status RXNORM NDC Medication Dose Route Frequency Dates Comments Reported By Updated By Drug Treatment Unknown DISCHARGE MEDICATIONS Status RXNORM NDC Medication Dose Route Frequency Dates Comments Physician Updated By No Discharge Medication Info rmation Available INPATIENT MEDICATIONS Status RXNORM NDC Medication Dose Route Frequency Rat e Quantity Dates Comments Physician Updated By No Inpatient Medication Info rmation Available SOCIAL HISTORY SOCIAL HISTORY SNOMED-CT Social History Element Description Effective Dates Offered Cessation Comment UpdatedBy [id number] Smoking Status Unknown If Ever Smoked SOCIAL [...] available. ENCOUNTERS ENCOUNTER INFORMATION Reason for Visit HAND LACERATION Admission September 03, 2023 10:48:00 PM UTC [address] [address] Discharge September 04, 2023 12:09:00 AM UTC [facility] T AGAINST ADVICE OR DISCONTINUED ENCOUNTER DIAGNOSES Notes information is not harinder ilable. Code System Diagnosis Onset Date Diagnosis information is not available. ABSTRACT DIAGNOSES Code System Diagnosis Updated By Abstract Diagnosis informati on is not available. CARE TEAM Care Banquet Waiter/Waitress Role BOO SCHMITT Admitting BOO SCHMITT Primary Attending LEANN LOZANO Primary Care BOO SCHMITT Referring CARE TEAM CARE sand mixer machine Role on Team Status Start Date End Date Update d By KESHIA HADDAD MD Referring normal September 02 11:32:35 PM UTC September 04, 2023 12:09:00 AM UTC [id number] on September 03, 2023 11:32:35 PM UTC KESHIA HADDAD MD Attending normal September 02 11:32:35 PM UTC September 04, 2023 12:09:00 AM UTC [id number] on September 03, 2023 11:32:35 PM UTC KESHIA HADDAD MD Admitting normal September 02 11:32:34 PM UTC September 04, 2023 12:09:00 AM UTC [id number] on September 03, 2023 11:32:35 PM UTC MARTA DUNAWAY PCP normal September 03, 2023 10:48:48 PM UTC September 04, 2023 12:09:00 AM UTC [id number] on September 03, 2023 11:32:35 PM UTC
--- OUTSIDE RECORDS SUMMARY | 2023-09-03 21:31 | XMS_ITS | Continuity of Care Document ---
Author Name Unknown Organization [facility] Address [address] [place] [id number]- Care Team Providers Care Fiber Artist Name Role Phone [address] DR Primary Care Physician [phone] [facility] Date(s): 11/16/22 - 11/17/[address] [address]- [place] Encounter Diagnosis Pyelonephritis(Discharge Diagnosis) - 11/16/22 Discharge Disposition: Another Type of Institution OP Attending Physician: MELY MORALES MD-EMR Admitting Physician: AMADO CAMACHO MD-EMR Referring Physician: TAMERA, SELF REFERRED Allergies, Adverse Reactions, Alerts Substance Reaction Severity Status erythromycin Active Assessment and Plan Extracted from: Title:ED Boarding Note Author:JAY HYATT MD-EMR Date:11/17/22 Basic Information Addendum: Time of addendum:: 11/17/2022 16:31:00 , Pertinent history: Subjective - 26 yo F presented to the ED wtih flankl pain, fever and nausea. Sh was found to have pyelonephritis and possible early abscess. Currently she has a headache, continued pain on her right side, and nausea. PE - GEn - a&ox3, nad CV - RRR resp -CTA-B back - right cva ttp Obejctive - labs and CT resultus reviewed from yesterday. A/P - 1. pyelonephritis - Received rocephin initially and now on cefepime q12 since this afternoon. written ibuprofen, morphine for pain Patient just received a bed and hopefully will get txf soon.. Extracted from: Title:Abdominal pain Author:MELY MORALES MD-EMR Date:11/16/22 Basic Information Additional information: Chief Complaint from Nursing Triage Note : Chief Complaint 11/16/2022 19:36 EDT Chief Complaint Left side DAMON with light sensitivity, body aches, nausea, right flank pain x couple of days. . History of Present Illness 26-year-old female, no past medical history presenting for headache and abdominal pain. The patient reports that 3 days or so of left-sided sharp headache with photophobia as well as nausea without significant emesis. She also reports for the last 3 days she has had right-sided flank pain that seems to radiate lower into her abdomen without dysuria or hematuria or increased urinary frequency. The patient denies any difficulty ambulating walking or feeling off balance denies any syncope or near syncope denies any productive cough shortness breath or chest pain. The patient has no known sick contacts, was seen in urgent care earlier where strep and COVID were negative and she was prompted to present here for further evaluation for possible appendicitis. Health Status Allergies: Allergic Reactions (Selected) Severity Not Documented Erythromycin- No reactions were documented.. Medications: (Selected) Inpatient Medications Ordered Zofran: 4 mg, 2 mL, IV Push, 1-Time morphine: 4 mg, 1 mL, IV Push, 1-Time. Past Medical/ Family/ Social History Surgical history: No active procedure history items have been selected or recorded.. Family history: No family history items have been selected or recorded.. Social history: Social & Psychosocial Habits No Data Available . Problem list: Active Problems (1) No Chronic Problems . Physical Examination Vital Signs Vital Signs/Vital Measures 11/16/2022 19:36 EDT Elisha Motor Response Obey commands [place] Verbal Response Oriented [place] Eye Opening Response Spontaneous Elisha Coma Score 15 Temperature, Fahrenheit 100.6 Deg F HI Clinical Temperature, C 38.1 Deg C Peripheral Pulse Rate 136 bpm HI Respiratory Rate 18 Breaths/Min Systolic Blood Pressure 125 mmHg Diastolic Blood Pressure 80 mmHg Oxygen Saturation 100 % Oxygen Therapy Mode Room air . Measurements 11/16/2022 19:36 EDT Height/Length, ECUADOREAN (ft) 5 ft Height/Length ECUADOREAN 6 Inch CLINICALHEIGHT 167.64 cm Weight Source, ED Critical estimated dosing weight Weight Bangladeshi lb 140 lb CLINICALWEIGHT 63.64 kg Body Surface Area (BSA) 1.72 m2 Body Mass Index 22.6 kg/m2 [place] Body Weight 59 kg . Oxygen Saturation 11/16/2022 19:36 EDT Oxygen Saturation 100 % . General: Alert, no acute distress. Skin: Warm, dry, intact. Head: Normocephalic, atraumatic. Neck: Supple, trachea midline. Eye: Normal conjunctiva. Ears, nose, mouth and throat: Oral mucosa moist. Cardiovascular: Normal peripheral perfusion, No edema. Respiratory: Respirations are non-labored. Gastrointestinal: Non distended, right flank and lower right abd TTP. no guarding. Nonperitoneal. . Musculoskeletal: Normal ROM, no swelling, no deformity. Neurological: No focal neurological deficit observed. Psychiatric: Cooperative, appropriate mood & affect. Medical Decision Making Notes: This is a healthy 26-year-old female presenting with right-sided flank and abdominal pain concerning for potential appendicitis, has had a previous cholecystectomy, secondary concern for potential pyelonephritis versus nephrolithiasis, no no evidence of rashes or signs of shingles. No trauma or injuries.. Reexamination/ Reevaluation 11/16/2022 20:36:20:?? EP Interpretation: I have independently reviewed the patient's CT imaging which shows no acute pathology associated with her presentation today, specifically no acute appendicitis. The right kidney does have what appears to be cysts, lab w/u so far unremarkable other than evidence of a urinary tract infection with small hematuria. 11/16/2022 22:00:36:??Formal CT read shows evidence of early abscess formation in the right kidney, small end of air in the bladder I discussed this with Dr. WEBB, neurology recommends admission for antibiotics and observation. Updated the patient on plan of care she is agreeable to admission and I spoke with BRYANNA Childs [employer], accepts the patient for admission Impression and Plan Diagnosis Pyelonephritis - Discharge, Medical Plan Condition: Improved, Stable. Prescriptions: Prescription Reservation Clerk Pharmacy: Bactrim DS 800 mg-160 mg oral tablet (Prescribe): 1 Tab, Oral, BID, for 5 Day(s), 10 Tab, 0 Refill(s). Patient was given the following educational materials: Pyelonephritis, Adult. Follow up with: Follow up with primary care provider Within 2 to 3 days You were diagnosed with a urinary tract infection, and started on antibiotics, which you should continue as prescribed. Your physical exam and laboratory findings were reassuring. Please follow up with your primary care doctor in the next 2-4 days Call for an appointment today. Please return to the ER or call 911 if you experience increasing abdominal pain, fever, shortness of breath, decreased urination or trouble urinating, or any new, concerning or worsening symptoms. Thank you for trusting [facility] with your care today. . Counseled: Patient, Regarding diagnosis, Regarding diagnostic results, Regarding treatment plan. Medications Bactrim DS 800 mg-160 mg oral tablet 1 Tab, Oral, Tab, BID, X 5 Day(s), # 10 Tab, 0 Refill(s) Start Date: 11/16/22 Stop Date: 11/21/22 Status: Ordered Mental Status 11/17/22 Level of Consciousness Alert, Awake Orientation Oriented x 4 Neurological Symptoms None Affect/Behavior Appropriate, Calm, Cooperative 11/16/22 Speech Clear Problem List No Known Problems Procedures Procedure Date Related Diagnosis Body Site Status Abnormal gallbladder function Completed Results Laboratory List Name Date HCG Urine Qualitative 11/16/22 Urinalysis w Culture if Indicated 11/16/22 CBC w/ Auto Diff 11/16/22 CMP Comprehensive Metabolic Panel 11/16/22 Lactic Acid Level with Reflex if Indicat ed 11/16/22 Lipase Level 11/16/22 .Automated Differential 11/16/22 .Urinalysis Microscopic 11/16/22 Most recent to oldest [Reference Range]: 1 nRBC [1.0-5.0] 0.0 *LOW* (11/16/22 8:00 PM) eGFR [>=60 mL/min/1.73m2] 70 mL/min/1.73 m2 1 (11/16/22 8:00 PM) Sodium Level [135-143 mmol/L] 134 mmol/L *LOW* (11/16/22 8:00 PM) Potassium Level [3.5-4.8 mmol/L] 3.7 mmo l/L (11/16/22 8:00 PM) Chloride Level [98-107 mmol/L] 100 mmol/ L (11/16/22 8:00 PM) Carbon Dioxide Level [23.0-32.0 mMole/Li ter] 22.0 mMole/Liter *LOW* (11/16/22 8:00 PM) Anion Gap [2.0-11.0] 12.0 *HI* (11/16/22 8:00 PM) WBC [4.1-10.8 10x3/mm3] 14.5 10x3/mm3 *HI* (11/16/22 8:00 PM) RBC [3.77-5.16 Million/mm3] 4.71 Million /mm3 (11/16/22 8:00 PM) Hct [34.1-44.9 %] 41.7 % (11/16/22 8:00 PM) Hgb [11.2-15.7 Gram/dL] 14.3 Gram/dL (11/16/22 8:00 PM) Platelet Count [140-370 10x3/mm3] 216 10 x3/mm3 (11/16/22 8:00 PM) MCH [25.6-32.2 pg] 30.4 pg (11/16/22 8:00 PM) MCHC [32.2-35.5 Gram/dL] 34.3 Gram/dL (11/16/22 8:00 PM) MCV [79.4-94.8 fL] 88.5 fL (11/16/22 8:00 PM) Bilirubin Total [0.2-1.0 mg/dL] 0.8 mg/d L (11/16/22 8:00 PM) A/G Ratio [1.0-1.7] 1.2 (11/16/22 8:00 PM) ALT [3-37 Units/Liter] 15 Units/Liter (11/16/22 8:00 PM) AST [8-34 Units/Liter] 16 Units/Liter (11/16/22 8:00 PM) Alk Phos [25-105 Units/Liter] 51 Units/L iter (11/16/22 8:00 PM) Bun/Creatinine 8 *NA* (11/16/22 8:00 PM) Calcium Level [8.9-10.3 mg/dL] 9.1 mg/dL (11/16/22 8:00 PM) Glucose Level [70-110 mg/dL] 99 mg/dL (11/16/22 8:00 PM) Ur RBC 2-5 /HPF (11/16/22 8:03 PM) Blood Urea Nitrogen [6-20 mg/dL] 9 mg/dL (11/16/22 8:00 PM) Eos % [0.7-6.0 %] 0.3 % *LOW* (11/16/22 8:00 PM) Urine Nitrite [Negative] Positive *ABN* (11/16/22 8:03 PM) Urine Leukocyte Esterase [Negative] Mode rate *ABN* (11/16/22 8:03 PM) Ur Epithelial Cells Few (11/16/22 8:03 PM) [place] # [0.2-1.4 x10(3)/uL] 1.6 x10(3)/uL *HI* (11/16/22 8:00 PM) Eos # [0.0-0.6 x10(3)/uL] 0.0 x10(3)/uL (11/16/22 8:00 PM) Urine Appearance [Clear] Slightly Cloudy (11/16/22 8: PM) Urine Glucose Dipstick [Negative] Negati ve (11/16/22 8: PM) [place] % [5.0-12.5 %] 11.1 % (11/16/22 8:00 PM) Urine Blood Dipstick [Negative] Small *ABN* (11/16/22 8: PM) Lactic Acid Level [0.5-2.2 mmol/L] 1.1 m mol/L (11/16/22 8:00 PM) Baso % [0.0-3.0 %] 0.4 % (11/16/22 8:00 PM) Urine Urobilinogen Dipstick [0.1-1.0 EU/ dL] 0.2 EU/dL (11/16/22 8:03 PM) Baso # [0.0-0.3 x10(3)/uL] 0.1 x10(3)/uL (11/16/22 8:00 PM) Urine Protein Dipstick [Negative mg/dL] 30 mg/dL *ABN* (11/16/22 8:03 PM) RDW [11.7-15.2 %] 12.9 % (11/16/22 8:00 PM) Ur Bacteria 3+ /HPF *ABN* (11/16/22 8:03 PM) Urine Color Yellow *NA* (11/16/22 8:03 PM) Ur WBC 20-40 /HPF (11/16/22 8:03 PM) Urine Ketones Dipstick [Negative] Negati ve (11/16/22 8: PM) Neut % [34.0-69.5 %] 82.1 % *HI* (11/16/22 8:00 PM) Protein Total [5.9-7.5 Gram/dL] 8.4 Gram /dL *HI* (11/16/22 8:00 PM) Neut # [1.70-6.00 x10(3)/uL] 11.90 x10(3 )/uL *HI* (11/16/22 8:00 PM) Albumin Level [3.3-4.5 Gram/dL] 4.5 Gram /dL (11/16/22 8:00 PM) Urine pH Dipstick [5.0-8.0] 6.0 (11/16/22 8:03 PM) Lymph % [20.0-53.0 %] 6.1 % *LOW* (11/16/22 8:00 PM) Urine Bilirubin Dipstick [Negative] Nega tive (11/16/22 8: PM) Lipase Level [10-50 Units/Liter] 24 Unit s/Liter (11/16/22 8:00 PM) Urine Specific [place] [1.003-1.030] 1.0 20 *NA* (11/16/22 8:03 PM) Lymph # [0.8-3.2 x10(3)/uL] 0.9 x10(3)/u L (11/16/22 8:00 PM) MPV [8.7-12.0 fL] 9.1 fL (11/16/22 8:00 PM) HCG Urine Qualitative Negative 2 (11/16/22 8:03 PM) Creatinine Level [0.44-1.03 mg/dL] 1.12 mg/dL *HI* (11/16/22 8:00 PM) Urine Type. U CleanCatch *NA* (11/16/22 8:03 PM) 1Interpretive Data: eGFR calculation performed using the CKD-EPI 2020 equation (race variable excluded) 2Interpretive Data: Please note that if significant procedural or therapeutic interventions are anticipated for your patient, repeat Beta HCG on serum for qualitative and potentially quantitative results should be performed. Orders for Microbiology Reports Name Date Culture Blood 11/16/22 Culture Urine 11/16/22 Microbiology Reports TEST:Blood Culture STATUS:Order in Progress BODY SITE: SOURCE:Blood COLLECTED DATE/TIME:11/16/22 9:36 PM PRELIMINARY REPORT Culture in progress TEST:Urine Culture STATUS:Order in Progress BODY SITE: SOURCE:Urine, Clean Catch COLLECTED DATE/TIME:11/16/22 8:15 PM PRELIMINARY REPORT >100,000 cfu/ml Gram Negative Bacteria Radiology Reports * Exam Date Time Procedure Performing Provider Status 11/16/22 8:[address] Abdomen Pelvis W Carly CHIANG, stone grader; Auth (Verified) Notes: (CT Abdomen Pelvis W) Reason For Exam: right sided abd pain and flank pain. Prior cholecystectomy. Eval appendicitis ?renal stone? less likely REPORT INDICATION: Right-sided abdominal pain. TECHNIQUE: CT of the abdomen and pelvis with contrast. Coronal and sagittal reconstructions were obtained. Radiation dose reduction techniques included automated exposure control or exposure modulation based onbody size. COMPARISON: None available. FINDINGS: Inferior thorax demonstrates no acute or significant appearing abnormality. Patient is status post cholecystectomy, with likely related mild prominence of the bile ducts. No acute or significant appearing abnormality of the liver, spleen, pancreas, left kidney, adrenal glands, reproductive organs (including left ovarian corpus luteum), or bowel is identified. There is a trace amount of free fluidin the dependent pelvis. No free intra-abdominal pelvic air. There is abnormal thickening of the urinary bladder wall and there is a punctate focus of gas within the urinary bladder lumen. There are areas of abnormal attenuation of the right kidney that are favored to represent areas of acute lobarnephronia (pyelonephritis that may be developing into abscesses). No atherosclerotic changes are seen. No suspicious lymphadenopathy is seen. No acute osseous abnormality is seen. IMPRESSION: Cystitis and right-sided acute lobar nephronia (pyelonephritis that may be developing into abscesses). Recommend renal ultrasound following treatment for the apparent infection to exclude developmentof renal abscesses and exclude the less likely differential diagnostic consideration of solid rightrenal masses/tumors. Punctate focus of gas in the urinary bladder, probably related to catheterization of the urinary bladder, although nonspecific. Recommend clinical correlation. Trace amount of nonspecific free fluid in the dependent pelvis. Other findings, as above. Dictated by: Jono Randall M.D. Signed by Jono Randall M.D. on 11/16/2022 20:47 Final Dictated by: JONO RANDALL MD-RAD Dictated DT/TM: 11/16/2022 8:47 pm Interpreted and electronically signed by: JONO RANDALL MD-RAD Signed DT/TM: 11/16/2022 8:47 pm Vital Signs Most recent to oldest [Reference Range]: 1 2 3 [place] Motor Response Obey commands (11/17/22 3:31 PM) Obey commands (11/17/22 1:44 PM) Obey commands (11/17/22 10:21 AM) Elisha Verbal Response Oriented (11/17/22 3:31 PM) Oriented (11/17/22 1:44 PM) Oriented (11/17/22 10:21 AM) Elisha Eye Opening Response Spontaneous (11/17/22 3:31 PM) Spontaneous (11/17/22 1:44 PM) Spontaneous (11/17/22 10:21 AM) [place] Coma Score 15 (11/17/22 3:31 PM) 15 (11/17/22 1:44 PM) 15 (11/17/22 10:21 AM) Temperature, Fahrenheit [96.8-99.7 Deg F] 98.7 Deg F (11/17/22 12:00 AM) 98.7 Deg F (11/16/22 9:00 PM) 100.6 Deg F *HI* (11/16/22 7:36 PM) Clinical Temperature, C 37.1 Deg C (11/17/22 12:00 AM) 37.1 Deg C (11/17/22 12:00 AM) 37.1 Deg C (11/17/22 12:00 AM) Peripheral Pulse Rate [60-100 bpm] 95 bpm (11/17/22 6:17 AM) 136 bpm *HI* (11/16/22 7:36 PM) Heart Rate Monitored [60-100 bpm] 76 bpm (11/17/22 3:32 PM) Respiratory Rate [14-20 Breaths/Min] 16 Breaths/Min (11/17/22 10:24 AM) 18 Breaths/Min (11/16/22 7:36 PM) Blood Pressure [90-140/60-90 mmHg] 108/62mmHg (11/17/22 6:00 PM) 124/89mmHg (11/17/22 5:00 PM) 110/80mmHg (11/17/22 3:32 PM) Mean Arterial Pressure (MAP) 77 mmHg (11/17/22 6:00 PM) 101 mmHg (11/17/22 5:00 PM) 85 mmHg (11/17/22 12:30 PM) Mean Arterial Pressure (MAP)-BMDI 72 (11/17/22 6:00 PM) 98 (11/17/22 5:00 PM) 80 (11/17/22 12:30 PM) Oxygen Saturation [94-100 %] 98 % (11/17/22 6:00 PM) 100 % (11/17/22 5:00 PM) 97 % (11/17/22 3:32 PM) Oxygen Therapy Mode Room air (11/17/22 3:32 PM) Room air (11/17/22 3:31 PM) Room air (11/17/22 1:44 PM) Height/Length, ECUADOREAN (ft) 5 ft (11/16/22 7:36 PM) Height/Length ECU[place] 6 Inch (11/16/22 7:36 PM) CLINICALHEIGHT 167.64 cm (11/16/22 7:36 PM) Weight Source, ED Critical estimated dosing weight (11/16/22 7:36 PM) Weight [place] lb 140 lb (11/16/22 7:36 PM) CLINICALWEIGHT 63.64 kg (11/16/22 7:36 PM) Body Surface Area (BSA) 1.72 m2 (11/16/22 7:36 PM) Body Mass Index [19-24 kg/m2] 22.6 kg/m2 (11/16/22 7:36 PM) [place] Body Weight 59 kg (11/16/22 7:36 PM) Social History Social History Type Response Smoking Status Never smoker entered on: 11/16/22 Sex Female Hospital Discharge Instructions Patient Education 11/16/2022 20:40:55 Pyelonephritis, Adult Pyelonephritis, Adult Pyelonephritis is an [...] you start to feel better. ??? Take [id number] and prescription medicines only as told by [...] with your health care provider. Document Revised: 01/31/2019 Document Reviewed: 01/31/2019 [facility] Patient Education ?? 2021 [employer]. Follow Up Care 11/16/2022 19:07:52 With:Follow up with primary care provider Address:Unknown When:2 to 3 days Comments:You were diagnosed with a urinary tract infection, and started on antibiotics, which you should continue as prescribed. Your physical exam and laboratory findings were reassuring. Please follow up with your primary care doctor in the next 2-4 days Call for an appointment today. Please return to the ER or call 911 if you experience increasing abdominal pain, fever, shortness of breath, decreased urination or trouble urinating, or any new, concerning or worsening symptoms.Thank you for trusting [facility] with your care today. Physician Emergency department Note * JAY HYATT MD-EMR: PERFORM, SIGN, VERIFY Event Display: ED Physician Notes Authored Date: [id number] Patient: FINESSE MACHADO Age: 26 years Sex: Female : 1995 Associated Diagnoses: None Author: JAY HYATT MD-EMR Basic Information Addendum: Time of addendum:: 11/17/2022 16:31:00 , Pertinent history: Subjective - 26 yo F presented to the ED wtih flankl pain, fever and nausea. Sh was found to have pyelonephritis and possible earlyabscess. Currently she has a headache, continued pain on her right side, and nausea. PE - GEn - a&ox3, nad CV - RRR resp -CTA-B back - right cva ttp Obejctive - labs and CT resultus reviewed from yesterday. A/P - 1. pyelonephritis - Received rocephin initially and now on cefepime q12 since this afternoon. written ibuprofen, morphine for pain Patient just received a bed and hopefully will get txf soon.. Electronically Signed on11/17/2022 16:33 EDT JAY HYATT MD-JOSE * MELY MORALES MD-EMR: MODIFY, MODIFY, PERFORM, MODIFY, SIGN, VERIFY Event Display: ED Physician Notes Authored Date: [id number] Patient: FINESSE MACHADO Age: 26 years Sex: Female : 1995 Associated Diagnoses: Pyelonephritis Author: MELY MORALES MD-EMR Basic Information Additional information: Chief Complaint from Nursing Triage Note : Chief Complaint 11/16/2022 19:36 EDT Chief Complaint Left side DAMON with light sensitivity, body aches, nausea, right flank pain x couple of days. . History of Present Illness 26-year-old female, no past medical history presenting for headache and abdominal pain. The patientreports that 3 days or so of left-sided sharp headache with photophobia as well as nausea without significant emesis. She also reports for the last 3 days she has had right-sided flank pain that seems to radiate lower into her abdomen without dysuria or hematuria or increased urinary frequency. Thepatient denies any difficulty ambulating walking or feeling off balance denies any syncope or near syncope denies any productive cough shortness breath or chest pain. The patient has no known sick contacts, was seen in urgent care earlier where strep and COVID were negative and she was prompted to present here for further evaluation for possible appendicitis. Health Status Allergies: Allergic Reactions (Selected) Severity Not Documented Erythromycin- No reactions were documented.. Medications: (Selected) Inpatient Medications Ordered Zofran: 4 mg, 2 mL, IV Push, 1-Time morphine: 4 mg, 1 mL, IV Push, 1-Time. Past Medical/ Family/ Social History Surgical history: No active procedure history items have been selected or recorded.. Family history: No family history items have been selected or recorded.. Social history: Social & Psychosocial Habits No Data Available . Problem list: Active Problems (1) No Chronic Problems . Physical Examination Vital Signs Vital Signs/Vital Measures 11/16/2022 19:36 EDT Elisha Motor Response Obey commands [place] Verbal Response Oriented Elisha Eye Opening Response Spontaneous [place] Coma Score 15 Temperature, Fahrenheit 100.6 Deg F HI Clinical Temperature, C 38.1 Deg C Peripheral Pulse Rate 136 bpm HI Respiratory Rate 18 Breaths/Min Systolic Blood Pressure 125 mmHg Diastolic Blood Pressure 80 mmHg Oxygen Saturation 100 % Oxygen Therapy Mode Room air . Measurements 11/16/2022 19:36 EDT Height/Length, ECU[place]OREAN (ft) 5 ft Height/Length [place] 6 Inch CLINICALHEIGHT 167.64 cm Weight Source, ED Critical estimated dosing weight Weight [place] lb 140 lb CLINICALWEIGHT 63.64 kg Body Surface Area (BSA) 1.72 m2 Body Mass Index 22.6 kg/m2 [place] Body Weight 59 kg . Oxygen Saturation 11/16/2022 19:36 EDT Oxygen Saturation 100 % . General: Alert, no acute distress. Skin: Warm, dry, intact. Head: Normocephalic, atraumatic. Neck: Supple, trachea midline. Eye: Normal conjunctiva. Ears, nose, mouth and throat: Oral mucosa moist. Cardiovascular: Normal peripheral perfusion, No edema. Respiratory: Respirations are non-labored. Gastrointestinal: Non distended, right flank and lower right abd TTP. no guarding. Nonperitoneal. . Musculoskeletal: Normal ROM, no swelling, no deformity. Neurological: No focal neurological deficit observed. Psychiatric: Cooperative, appropriate mood & affect. Medical Decision Making Notes: This is a healthy 26-year-old female presenting with right-sided flank and abdominal pain concerning for potential appendicitis, has had a previous cholecystectomy, secondary concern for potential pyelonephritis versus nephrolithiasis, no no evidence of rashes or signs of shingles. No traumaor injuries.. Reexamination/ Reevaluation 11/16/2022 20:36:20:?? EP Interpretation: I have independently reviewed the patient's CT imaging which shows no acute pathology associated with her presentation today, specifically no acute appendicitis. The right kidney does have what appears to be cysts, lab w/u so far unremarkable other than evidence of a urinary tract infection with small hematuria. 11/16/2022 22:00:36:??Formal CT read shows evidence of early abscess formation in the right kidney, small end of air in the bladder I discussed this with Dr. WEBB, neurology recommends admission for antibiotics and observation. Updated the patient on plan of care she is agreeable to admission and I spoke with BRYANNA Childs [employer], accepts the patient for admission Impression and Plan Diagnosis Pyelonephritis - Discharge, Medical Plan Condition: Improved, Stable. Prescriptions: Prescription Reservation Clerk Pharmacy: Bactrim DS 800 mg-160 mg oral tablet (Prescribe): 1 Tab, Oral, BID, for 5 Day(s), 10 Tab, 0 Refill(s). Patient was given the following educational materials: Pyelonephritis, Adult. Follow up with: Follow up with primary care provider Within 2 to 3 days You were diagnosed with a urinary tract infection, and started on antibiotics, which you should continue as prescribed. Your physical exam and laboratory findings were reassuring. Please follow up with your primary care doctor in the next 2-4 days Call for an appointment today. Please return to the ER or call 911 if you experi ence increasing abdominal pain, fever, shortness of breath, decreased urination or trouble urinating, or any new, concerning or worsening symptoms. Thank you for trusting [facility] with your care today. . Counseled: Patient, Regarding diagnosis, Regarding diagnostic results, Regarding treatment plan. Electronically Signed on11/16/2022 22:01 EDT MELY MORALES MD-EMR Modified by: MELY MORALES MD-EMRon 11/16/22 20:37 EDT Modified by: MELY MORALES MD-EMRon 11/16/22 20:41 EDT Modified by: MELY MORALES MD-EMRon 11/16/22 22:01 EDT Patient Care team information Care Team Personnel Name: POLINA PHILIP DR Position: VEENA Referring Provider - No Access Member Role: Primary Care Physician Name: Delfina Luo, Registered Nurse Position: [facility] ED Nurse Member Role: ED Nurse Name: MELY MORALES MD-EMR Position: [facility] Physician Member Role: Attending Physician Address: Address: [address] [place] [address] Name: Isis Patterson, RN Position: [facility] Nurse RN - Float Member Role: ED Nurse Care Team Related Persons Name: CANDICE GUERRERO
--- OUTSIDE RECORDS SUMMARY | 2023-09-03 21:31 | XMS_ITS | Continuity of Care Document ---
Author Name Unknown Organization [facility] Address [address] [place] [address]- Encounter [facility] [id number] Date(s): 02/21/23 - 02/22/23 [facility] [address] [place] [address]- [place] Encounter Diagnosis Right flank pain(Discharge Diagnosis) - 02/22/23 Discharge Disposition: OP Self Care or Home Attending Physician: PABLITO CARY MD-EMR Admitting Physician: PABLITO CARY MD-EMR Referring Physician: PHY, SELF REFERRED Allergies, Adverse Reactions, Alerts Substance Reaction Severity Status erythromycin Active Medications Naprosyn 500 mg oral tablet 500 mg 1 Tab, Oral, Tab, BID, PRN as needed for pain, # 20 Tab, 0 Refill(s), Pharmacy: [facility]/pharmacy#[id number], 167.59 cm, 02/21/23 19:47:00 EST, CLINICALHEIGHT, 63.64, kg, 02/21/23 19:47:00 EST, CLINICALWEIGHT Start Date: 02/22/23 Stop Date: 02/26/23 Status: Ordered Corinne 5 mg-325 mg oral tablet 1 Tab, Oral, Tab, Q6H, PRN for pain, # 12 Tab, 0 Refill(s), Pharmacy: [facility]/pharmacy #[id number], cm, 02/10/23 19:00:00 EDT, CLINICALHEIGHT, 67, kg, 02/10/23 19:00:00 EDT, CLINICALWEIGHT, 167.59 Start Date: 02/10/23 Status: Ordered Zofran ODT 4 mg oral tablet, disintegrating 4 mg 1 Tab, Oral, TID, # 12 Tab, 0 Refill(s), Pharmacy: [facility]/pharmacy #[id number], 167.59 cm, 02/10/23 19:00:00 EDT, CLINICALHEIGHT, 67, kg, 02/10/23 19:00:00 EDT, CLINICALWEIGHT Start Date: 02/10/23 Status: Ordered Mental Status 02/21/23 Level of Consciousness Alert, Awake Orientation Oriented x 4 Neurological Symptoms None Affect/Behavior Appropriate, Calm Problem List No Known Problems Procedures Procedure Date Related Diagnosis Body Site Status Abnormal gallbladder function Completed Results Laboratory List Name Date BMP Basic Metabolic Panel 02/21/23 CBC w/ Auto Diff 02/21/23 HCG Serum Qualitative 02/21/23 Lactic Acid Level with Refle x if Indicated (ED Lactic Acid Level with Reflex if Indicated) 02/21/23 Urinalysis w Culture if Indicated .Automated Differential 02/21/23 .Urinalysis Microscopic 02/21/23 Most recent to oldest [Reference Range]: 1 eGFR [>=60 mL/min/1.73m2] 108 mL/min/1.7 3m2 1 (02/21/23 8:35 PM) Sodium Level [136-145 mmol/L] 137 mmol/L (02/21/23 8:35 PM) Potassium Level [3.5-5.1 mmol/L] 3.7 mmo l/L (02/21/23 8:35 PM) Chloride Level [98-110 mmol/L] 103 mmol/ L (02/21/23 8:35 PM) Carbon Dioxide Level [21.0-31.0 mmol/L] 27.0 mmol/L (02/21/23 8:35 PM) Anion Gap [2.0-11.0] 7.0 (02/21/23 8:35 PM) WBC [4.0-10.8 x10(3)/uL] 11.8 x10(3)/uL *HI* (02/21/23 8:35 PM) RBC [3.77-5.16 x10(6)/uL] 4.28 x10(6)/uL (02/21/23 8:35 PM) Hct [35.0-45.0 %] 37.2 % (02/21/23 8:35 PM) Hgb [12.0-16.0 Gram/dL] 12.9 Gram/dL (02/21/23 8:35 PM) Platelet Count [140-420 x10(3)/uL] 363 x 10(3)/uL (02/21/23 8:35 PM) MCH [25.6-32.2 pg] 30.1 pg (02/21/23 8:35 PM) MCHC [32.3-36.5 Gram/dL] 34.6 Gram/dL (02/21/23 8:35 PM) MCV [79.4-94.8 fL] 86.8 fL (02/21/23 8:35 PM) Bun/Creatinine [6.0-22.0] 15.4 (02/21/23 8:35 PM) Calcium Level [8.6-10.2 mg/dL] 9.6 mg/dL (02/21/23 8:35 PM) Glucose Level [74-109 mg/dL] 99 mg/dL (02/21/23 8:35 PM) HCG Serum Qual [Negative] Negative (02/21/23 8:35 PM) Ur RBC [None] 5-9 *ABN* (02/21/23 8:35 PM) Blood Urea Nitrogen [7-25 mg/dL] 12 mg/d L (02/21/23 8:35 PM) Slide Review None *NA* (02/21/23 8:35 PM) Eos % [0.0-7.0 %] 0.3 % (02/21/23 8:35 PM) Urine Nitrite Negative mg/dL *NA* (02/21/23 8:35 PM) Urine Leukocyte Esterase Negative *NA* (02/21/23 8:35 PM) Kershaw # [0.0-1.0 x10(3)/uL] 0.5 x10(3)/uL (02/21/23 8:35 PM) Eos # [0.0-0.7 x10(3)/uL] 0.0 x10(3)/uL (02/21/23 8:35 PM) Urine Appearance SL CLOUDY *NA* (02/21/23 8:35 PM) Urine Glucose Dipstick Normal mg/dL *NA* (02/21/23 8:35 PM) Kershaw % [2.0-12.0 %] 3.8 % (02/21/23 8:35 PM) Urine Blood Dipstick Negative mg/dL 2 *NA* (02/21/23 8:35 PM) Lactic Acid Level [0.5-2.2 mMole/Liter] 0.8 mMole/Liter (02/21/23 8:35 PM) Baso % [0.0-3.0 %] 0.7 % (02/21/23 8:35 PM) Urine Urobilinogen Dipstick [0.2-2.0 mg/ dL] <2.0 mg/dL (02/21/23 8:35 PM) Baso # [0.0-0.3 x10(3)/uL] 0.1 x10(3)/uL (02/21/23 8:35 PM) Urine Protein Dipstick 30 mg/dL mg/dL *NA* (02/21/23 8:35 PM) RDW [11.0-15.5 %] 13.3 % (02/21/23 8:35 PM) Ur Bacteria TRACE /HPF *NA* (02/21/23 8:35 PM) Ur Squamous Epithelial Cells [None] 5-9 *ABN* (02/21/23 8:35 PM) Urine Color Yellow *NA* (02/21/23 8:35 PM) Ur WBC [None] 5-9 *ABN* (02/21/23 8:35 PM) Urine Ketones Dipstick Trace mg/dL *NA* (02/21/23 8:35 PM) Neut % [34.0-75.0 %] 83.1 % *HI* (02/21/23 8:35 PM) Neut # [1.5-7.1 x10(3)/uL] 9.8 x10(3)/uL *HI* (02/21/23 8:35 PM) Ur Mucous Present *NA* (02/21/23 8:35 PM) Urine pH Dipstick [5-8] 6 (02/21/23 8:35 PM) Lymph % [17.0-53.0 %] 12.1 % *LOW* (02/21/23 8:35 PM) Urine Bilirubin Dipstick Negative mg/dL *NA* (02/21/23 8:35 PM) Urine Specific Rome [1.001-1.030] 1.0 26 (02/21/23 8:35 PM) Lymph # [1.0-3.5 x10(3)/uL] 1.4 x10(3)/u L (02/21/23 8:35 PM) MPV [8.7-12.0 fL] 8.8 fL (02/21/23 8:35 PM) Creatinine Level [0.60-1.20 mg/dL] 0.78 mg/dL (02/21/23 8:35 PM) Urine Type. U CleanCatch *NA* (02/21/23 8:35 PM) 1Interpretive Data: eGFR calculation performed using the CKD-EPI 2020 equation (race variable excluded) 2Interpretive Data: In the total absence of hemolysis, a negative result may occur and not agree with the results of a urine sediment examination. Orders for Microbiology Reports Name Date Culture Blood 02/21/23 Culture Blood 02/21/23 Microbiology Reports TEST:Blood Culture STATUS:Order in Progress BODY SITE: SOURCE:Blood COLLECTED DATE/TIME:02/21/23 8:58 PM PRELIMINARY REPORT No growth at 1 day. TEST:Blood Culture STATUS:Order in Progress BODY SITE: SOURCE:Blood COLLECTED DATE/TIME:02/21/23 8:35 PM PRELIMINARY REPORT No growth at 1 day. Radiology Reports * Exam Date Time Procedure Performing Provider Status 02/21/23 10:[address] Abdomen Pelvis W MOUSTAPHA GILMAN, CT T ECHNOLOGIST; Auth (Verified) Notes: (CT Abdomen Pelvis W) Reason For Exam: abdominal pain REPORT INDICATION: Abdominal pain, right flank pain, nausea and vomiting for eight hours. Recent kidney injection per patient. TECHNIQUE: CT of the abdomen and pelvis was performed with intravenous contrast. Isovue 370 100 mL was administered intravenously. Automated mA/kV exposure control was utilized and patient examination was performed in strict accordance with principles of ALARA. RADIATION AMOUNT: 453.98 mGy-cm. COMPARISON: CT AP 02/10/2023; CT abdomen 11/21/2022. FINDINGS: Abdomen: The lung bases are clear. The liver is normal. The pancreas, spleen, adrenal glands, and kidneys demonstrate no acute pathology. There has been a cholecystectomy. Both kidneys demonstrate normal contour and tissue planes and normal nephrograms with no hydronephrosis. There is no perinephric stranding indicating inflammation. There is no free air or lymph node enlargement. Abdominal aorta is not aneurysmal. Pelvis: There is no bowel wall thickening or obstruction. The appendix is normal. There is no free fluid. Lymph nodes are not enlarged. Urinary bladder is unremarkable. There is no evidence of the wall thickening of the bladder seen on the prior CT scan. Skeleton: There are no acute fractures. No suspicious bony lesions. IMPRESSION: No findings of an acute process in the abdomen or pelvis. Signed by Candice Cohen MD Final Dictated by: CANDICE COHEN MD-ESTELLE Dictated DT/TM: 02/21/2023 11:11 pm Interpreted and electronically signed by: CANDICE COHEN MD-RAD Signed DT/TM: 02/21/2023 11:44 pm Vital Signs Most recent to oldest [Reference Range]: 1 2 3 Farina Motor Response Obey commands (02/21/23 11:36 PM) Obey commands (02/21/23 10:36 PM) Obey commands (02/21/23 7:47 PM) Elisha Verbal Response Oriented (02/21/23 11:36 PM) Oriented (02/21/23 10:36 PM) Oriented (02/21/23 7:47 PM) Elisha Eye Opening Response Spontaneous (02/21/23 11:36 PM) Spontaneous (02/21/23 10:36 PM) Spontaneous (02/21/23 7:47 PM) Farina Coma Score 15 (02/21/23 11:36 PM) 15 (02/21/23 10:36 PM) 15 (02/21/23 7:47 PM) Temperature Source Oral (02/21/23 7:47 PM) Temperature, Fahrenheit [96.8-99.7 Deg F] 98 Deg F (02/21/23 7:47 PM) Clinical Temperature, C 36.7 Deg C (02/21/23 7:47 PM) Peripheral Pulse Rate [60-100 bpm] 84 bpm (02/21/23 7:47 PM) Heart Rate Monitored [60-100 bpm] 84 bpm (02/21/23 11:37 PM) Respiratory Rate [14-20 Breaths/Min] 16 Breaths/Min (02/21/23 11:37 PM) 16 Breaths/Min (02/21/23 7:47 PM) Blood Pressure [90-140/60-90 mmHg] 127/80mmHg (02/21/23 11:37 PM) 129/83mmHg (02/21/23 7:47 PM) Oxygen Saturation [94-100 %] 99 % (02/21/23 11:37 PM) 98 % (02/21/23 11:36 PM) 100 % (02/21/23 7:47 PM) Oxygen Therapy Mode Room air (02/21/23 11:37 PM) Room air (02/21/23 11:36 PM) Room air (02/21/23 10:36 PM) Height/Length, ARGENTINE (ft) 5 ft (02/21/23 7:47 PM) Height/Length ARGENTINE 5.98 Inch (02/21/23 7:47 PM) CLINICALHEIGHT 167.59 cm (02/21/23 7:47 PM) Weight Source, ED Critical estimated dosing weight (02/21/23 7:47 PM) Weight Slovak lb 140 lb (02/21/23 7:47 PM) CLINICALWEIGHT 63.64 kg (02/21/23 7:47 PM) Body Surface Area (BSA) 1.72 m2 (02/21/23 7:47 PM) Body Mass Index [19-24 kg/m2] 22.7 kg/m2 (02/21/23 7:47 PM) Clark Body Weight 59 kg (02/21/23 7:47 PM) Social History Social History Type Response Smoking Status Never smoker entered on: 11/16/22 Sex Female Hospital Discharge Instructions Patient Education 02/22/2023 00:05:13 Flank Pain, Adult, Rbkj-hq-Coge Flank Pain, Adult Flank pain is pain in your side. The flank is the area on your side between your upper belly (abdomen) and your spine. The pain may occur over a short time (acute), or it may be long-term or come back often (chronic). It may be mild or very bad. Pain in this area can be caused by many different things. Follow these instructions at home: ??? Drink enough fluid to keep your pee (urine) pale yellow. ??? Rest as told by your doctor. ??? Take uqgk-kza-rjyjzrl and prescription medicines only as told by your doctor. ??? Keep a journal to keep track of: ??? What has caused your flank pain. ??? What has made your flank pain feel better. ??? Keep all follow-up visits. Contact a doctor if: ??? Medicine does not help your pain. ??? You have new symptoms. ??? Your pain gets worse. ??? Your symptoms last longer than 2???3 days. ??? You have trouble peeing. ??? You are peeing more often than normal. Get help right away if: ??? You have trouble breathing. ??? You are short of breath. ??? Your belly hurts, or it is swollen or red. ??? You feel like you may vomit (nauseous). ??? You vomit. ??? You feel faint, or you faint. ??? You have blood in your pee. ??? You have flank pain and a fever. These symptoms may be an emergency. Get help right away. Call your local emergency services (911 int [place] ??? Do not wait to see if the symptoms will go away. ??? Do not drive yourself to the hospital. Summary ??? Flank pain is pain in your side. The flank is the area of your side between your upper belly (abdomen) and your spine. ??? Flank pain may occur over a short time (acute), or it may be long-term or come back often (chronic). It may be mild or very bad. ??? Pain in this area can be caused by many different things. ??? Contact your doctor if your symptoms get worse or last longer than 2???3 days. This information is not intended to replace advice given to you by your health care provider. Make sure you discuss any questions you have with your health care provider. Document Revised: 06/09/2021 Document Reviewed: 06/09/2021 [employer] Patient Education ?? 2022 [employer] Follow Up Care 02/21/2023 19:31:51 With:[facility] - Primary Care Referral Line Address: Call for follow-up When:2 to 3 days Physician Emergency department Note * PABLITO CARY MD-EMR: PERFORM, MODIFY, MODIFY, SIGN, VERIFY Event Display: ED Physician Notes Authored Date: Patient: FINESSE MACHADO Age: 27 years Sex: Female : 1995 Associated Diagnoses: None Author: PABLITO CARY MD-EMR ?Emergency DepartmentAttending Note HPI 27-year-old female with a past medical history of a right-sided renal abscess who was recently seenin the ED on 02/10 for back pain and was diagnosed with left-sided pyelonephritis with resolution ofher renal abscess presenting to the emergency department today due to right-sided back pain, nausea, vomiting, headache. Her symptoms started yesterday. She has been taking her oral antibiotics as prescribed and states that she has 4 pills left to take. Her symptoms began earlier today. She has nottaken her temperature, but states that she does feel that she may have a fever. Her vomiting has been nonbloody and nonbilious. Physical Exam General:??Appears uncomfortable secondary to pain. HEENT:?Normocephalic, atraumatic, oropharynx clear, mucous membranes moist Neck:?trachea midline, no JVD Pulmonary:?Good effort, no accessory muscle use, clear bilaterally Cardiac:?Regular rate, no murmur Abdomen:?Soft, nontender and nondistended, without rebound or guarding. Right-sided CVA tenderness present Musculoskeletal:?No deformities noted Extremities:??Warm and well perfused, no cyanosis or edema Vascular:?palpable and symmetric pulses. Skin:?No rashes or lesions noted Neurologic:?Awake and alert, face symmetric, strength and sensation grossly equal and symmetric in all four extremities Medical Decision Making/Plan -Acute onset symptoms:??1 day -History obtained from:??Patient, chart review prior ED visits and hospitalizations -Pertinent comorbidities:??History of right-sided renal abscess -External documents reviewed:??Yes, previous ED visit and discharge summaries -DDx:??Pyelonephritis, renal abscess, kidney stone, small bowel obstruction -Interpretation of radiology:??CT A/P with no obvious free air, no signs of bowel obstruction, no nephrolithiasis. ??Interpreted by self/EP, final read pending radiology -Testing considered:??CBC, BMP, test, CT A/P, blood cultures -Tx considered:??IV fluids, IV antibiotics, IV antiemetics, IV pain medications -Discussions with external physicians:??No -Drug therapy requiring monitoring:??IV pain medication ------- -ED course:??27-year-old female presenting with right-sided back/flank pain with a history of pyelonephritis as well as a small renal abscess that was treated nonoperatively 6 months ago. Patient initially was in significant pain and was given IV fluids, blood cultures were drawn, she was given a dose of ceftriaxone, and Toradol. Her urinalysis shows no evidence of infection. Her CBC shows a mild leukocytosis, no anemia, no thrombocytosis. test is negative. She does have a small amount of microscopic hematuria and given her past medical history, we obtained a CT scan of the abdomen pelvis with IV contrast which showed no evidence of pyelonephritis, renal abscess, or obstructing kidney stone. On reassessment, she is significantly improved and I discussed with her that we will be discharging her from the emergency department. Her significant other was resident in the room and disclosed to me that he believes that she was using IV drugs earlier tonight and requested that we keep her in the hospital for night so that she does not go back into that environment. I discussed with both her and her significant other that this is not an indication for admission to the hospital and offered to provide resources for local rehab clinics as well as shelters but they did not wish to have this given to them. They are discharged with strict return precautions. Disposition:??Discharge Pablito Cary MD Attending Emergency Medicine and Critical Care Physician Electronically Signed on02/22/2023 00:03 EST PABLITO CARY MD-JOSE Modified by: PABLITO CARY MD-EMRon 02/21/23 23:02 EST Modified by: PABLITO CARY MD-EMRon 02/22/23 00:03 EST Patient Care team information Care Team Personnel Name: PABLITO CARY MD-EMR Position: [place] ED Physician Member Role: Attending Physician Address: Address: [address] [facility] [address] [place] [address]- Name: Pablito Tello, Slab Lifting Supervisor Position: [place] ED Nurse Member Role: ED Nurse Name: Isela Snider, TUBING MILL OPERATOR Position: [place] Unit Sec - [place] Member Role: research archaeologist Care Team Related Persons Name: CANDICE GUERRERO
--- OUTSIDE RECORDS SUMMARY | 2023-09-03 21:31 | XMS_ITS | Continuity of Care Document ---
Author Name Unknown Address [address] [place], [place] [id number] Organization [facility] Phone Care Team Providers Care Shuttler Car Name Role Phone LEANN LOZANO Unavailable LEANN LOZANO Admitting LEANN LOZANO Primary Care LEANN LOZANO Primary Attending [phone] TREATMENT PLAN DISCHARGE MEDICATIONS Status RXNORM Medication Dose Route Frequency Dates Comments U pdated By Patient discharge medication information is not available. PATIENT OPEN ORDERS Code System Description Frequency Occurrences Priority Start Date Ordering Physician Updated By 630-4 LOINC Bacteria identified in Urine by Culture ONE TIME 0 Routine May 14, 2023 3:59:00 PM [facility] MARTA Jenkins HAY RAKE OPERATOR [id number] on May 14, 2023 3:59:00 PM [facility] SCHEDULED PROCEDURES Code System [...] Description Effective Dates Offered Cessation Comment UpdatedBy [id number] Smoking Status Unknown If Ever Smoked SOCIAL [...] INFORMATION Reason for Visit R30.0 Admission May 14, 2023 3:58:[address] [address] Discharge May 14, 2023 4:58:00 PM [place] DISCHARGED TO HOME OR SELF CARE ENCOUNTER DIAGNOSES Notes information is not harinder ilable. Code System Diagnosis Onset Date Diagnosis information is not available. ABSTRACT DIAGNOSES Code System Diagnosis Updated By Abstract Diagnosis informati on is not available. CARE TEAM Care Shuttler Car Role LEANN LOZANO Referring LEANN LOZANO Admitting LEANN LOZANO Primary Care LEANN LOZANO Primary Attending CARE TEAM CARE vegetable grader Role on Team Status Start Date End Date Update d By MARTA DUNAWAY PCP normal May 14, 2023 5:00:00 AM [place] May 14, 2023 4:58:00 PM [place] [id number] on May 14, 2023 7:30:25 PM [place] MARTA DUNAWAY Referring normal May 14, 2023 5:00:00 AM [place] May 14, 2023 4:58:00 PM [place] [id number] on May 14, 2023 7:30:25 PM UT MARTA DUNAWAY Attending normal May 14, 2023 5:00:00 AM [place] May 14, 2023 4:58:00 PM UT [id number] on May 14, 2023 7:30:25 PM UT MARTA DUNAWAY Admitting normal May 14, 2023 5:00:00 AM UT May 14, 2023 4:58:00 PM UT [id number] on May 14, 2023 7:30:25 PM UT PRATIK BALTAZAR APRN PCP normal May 3:59:06 PM UTC May 14, 2023 5:00:00 AM UTC [id number] on May 14, 2023 7:30:25 PM UT
--- OUTSIDE RECORDS SUMMARY | 2023-09-03 21:31 | XMS_ITS | Continuity of Care Document ---
Author Name Unknown Address [address] [place] [phone] Organization [facility] Phone Care Team Providers Care Installers Mechanical Name Role Phone PRATIKDELANEY Carly Primary Care OUMAR MENJIVAR Admitting OUMAR MENJIVAR Primary Attending OUMAR MENJIVAR Unavailable RESULTS Patient: CARTER Barney Date of : November 22 98 9 LABORATORY RESULTS Information is not available LABORATORY NARRATIVE RESULTS Information is not available RADIOLOGY RESULTS Information is not available PATHOLOGY NARRATIVE RESULTS Information is not available MICROBIOLOGY RESULTS ORDER 100: CULTURE URINE (LO INC: 630-4) ORDER DATE: April 29, 2023 2:51:00 PM UTC PERFORMING LAB: [address] [id number] Specimen Source: URINE Result Comment: April 30, 2023 12:40:00 PM UTC (TECH: LT) >100,000 COL/ML Gram Negative Rods Final Result Date: May 01, 2023 11:48:00 AM UTC (TECH: LT) ISOLATE #1 Organism: Escherichia coli Result Comment: Final Result Date: May 01, 2023 11:48:00 AM UTC (TECH: LT) LOINC ANTIBIOTIC ILIR TYPE VALUE UPDATED B Y 34716-9 Ampicillin >16.0 Systemic R April 132023 11:48:00 AM UTC (TECH: LT) 05092-6 Ampicillin >16.0 Urine R April 132023 11:48:00 AM UTC (TECH: LT) 32-3 Amp/Sulbactam 0.0 Systemic I Januar y 2023 11:48:00 AM UTC (TECH: LT) 32-3 Amp/Sulbactam 0.0 Urine I Whitley 2023 11:48:00 AM UTC (TECH: LT) 00934-0 Aztreonam <= 4.0 Systemic S April 11:48:00 AM UTC (TECH: LT) 00152-7 Aztreonam <= 4.0 Urine S April 11:48:00 AM UTC (TECH: LT) 10565-8 Cefazolin 4.0 Systemic S April 11:48:00 AM UTC (TECH: LT) 85127-9 Cefazolin 4.0 Urine S April 11:48:00 AM UTC (TECH: LT) 44245-1 Cefepime <= 2.0 Systemic S April 11:48:00 AM UTC (TECH: LT) 38877-8 Cefepime <= 2.0 Urine S April 11:48:00 AM UTC (TECH: LT) 108-1 Cefotaxime <= 2.0 Systemic S April 132023 11:48:00 AM UTC (TECH: LT) 108-1 Cefotaxime <= 2.0 Urine S April 132023 11:48:00 AM UTC (TECH: LT) 45888-8 Cefoxitin <= 8.0 Systemic S April 11:48:00 AM UTC (TECH: LT) 02581-2 Cefoxitin <= 8.0 Urine S April 11:48:00 AM UTC (TECH: LT) 29912-6 Ceftazidime <= 1.0 Systemic S May 01, 2023 11:48:00 AM UTC (TECH: LT) 71177-8 Ceftazidime <= 1.0 Urine S May 01, 2023 11:48:00 AM UTC (TECH: LT) 93987-6 Ceftriaxone <= 1.0 Systemic S May 01, 2023 11:48:00 AM UTC (TECH: LT) 72441-5 Ceftriaxone <= 1.0 Urine S May 01, 2023 11:48:00 AM UTC (TECH: LT) 45231-1 Cefuroxime <= 4.0 Systemic S April 132023 11:48:00 AM UTC (TECH: LT) 08833-6 Cefuroxime <= 4.0 Urine S April 132023 11:48:00 AM UTC (TECH: LT) 02749-8 Ciprofloxacin <= 1.0 Systemic S y 2023 11:48:00 AM UTC (TECH: LT) 14216-1 Ciprofloxacin <= 1.0 Urine S 2023 11:48:00 AM UTC (TECH: LT) 82287-7 Ertapenem <= 0.5 Systemic S April 11:48:00 AM UTC (TECH: LT) 59637-0 Ertapenem <= 0.5 Urine S April 11:48:00 AM UTC (TECH: LT) 81811-2 Gentamicin <= 4.0 Systemic S April 132023 11:48:00 AM UTC (TECH: LT) 21153-1 Gentamicin <= 4.0 Urine S April 132023 11:48:00 AM UTC (TECH: LT) 15211-1 Levofloxacin <= 2.0 Systemic S May 01, 2023 11:48:00 AM UTC (TECH: LT) 37280-1 Levofloxacin <= 2.0 Urine S May 01, 2023 11:48:00 AM UTC (TECH: LT) Meropenem <= 1.0 Systemic S April 11:48:00 AM UTC (TECH: LT) Meropenem <= 1.0 Urine S April 11:48:00 AM UTC (TECH: LT) 24556-4 Nitrofurantoin <= 32.0 Systemic S 2023 11:48:00 AM UTC (TECH: LT) 98774-2 Nitrofurantoin <= 32.0 Urine S ry 2023 11:48:00 AM UTC (TECH: LT) 75964-3 Pip/Tazo <= 16.0 Systemic S April 11:48:00 AM UTC (TECH: LT) 93520-5 Pip/Tazo <= 16.0 Urine S April 11:48:00 AM UTC (TECH: LT) 90792-3 Tetracycline >8.0 Systemic R May 01, 2023 11:48:00 AM [place] (TECH: LT) 34782-8 Tetracycline >8.0 Urine R May 01, 2023 11:48:00 AM [facility] (TECH: LT) 49897-1 Tobramycin 8.0 Systemic I April 132023 11:48:00 AM [facility] (TECH: LT) 63712-2 Tobramycin 8.0 Urine I April 132023 11:48:00 AM [facility] (TECH: LT) 516-5 Trimeth/Sulfa >0.0 Systemic R Januar y 2023 11:48:00 AM [facility] (TECH: LT) 516-5 Trimeth/Sulfa >0.0 Urine R Januar y 2023 11:48:00 AM [facility] (TECH: LT) BLOOD ADMIN RESULTS Information is not available MEDICATIONS HOME MEDICATIONS Status RXNORM Medication Dose [...] Description Effective Dates Offered Cessation Comment UpdatedBy [id number] Smoking Status Unknown If Ever Smoked SOCIAL [...] PAIN Admission April 29, 2023 2:50:[address] [address] Discharge April 29, 2023 9:30:00 PM [facility] DISCHARGED TO HOME OR SELF CARE ENCOUNTER DIAGNOSES Notes information is not harinder ilable. Code System Diagnosis Onset Date Diagnosis information is not available. ABSTRACT DIAGNOSES Code System Diagnosis Updated By R10.9 ICD10 UNSPECIFIED ABDOMINAL PAIN P [id number] on April 30, 2023 12:50:06 PM UTC R10.9 ICD10 UNSPECIFIED ABDOMINAL PAIN P [id number] on April 30, 2023 12:50:06 PM UTC CARE TEAM Care Installers Mechanical Role DELANEY CHRISTIE Primary Care OUMAR MENJIVAR Admitting OUMAR MENJIVAR Primary Attending OUMAR MENJIVAR Referring CARE TEAM CARE skimmer reverberatory Role on Team Status Start Date End Date Update d By OTTO PHILIP Referring normal April 29, 2023 9:25:19 PM UTC April 29, 2023 5:00:00 AM UTC [id number] on April 29, 2023 9:25:19 PM UTC OTTO PHILIP Attending normal April 29, 2023 9:25:19 PM UTC April 29, 2023 5:00:00 AM UTC [id number] on April 29, 2023 9:25:19 PM UTC OTTO PHILIP Admitting normal April 29, 2023 9:25:18 PM UTC April 29, 2023 5:00:00 AM UTC [id number] on April 29, 2023 9:25:19 PM UTC PRATIK BALTAZAR APRN PCP normal April 2:51:10 PM UTC April 29, 2023 5:00:00 AM UTC [id number] on April 29, 2023 9:25:19 PM UTC
--- OUTSIDE RECORDS SUMMARY | 2023-09-03 21:31 | XMS_ITS | Continuity of Care Document ---
Author Name Unknown Address [address] [place] [id number] Organization [facility] Phone Care Team Providers Care Rapid Outsole Stitcher Name Role Phone LEANN LOZANO Primary Care [phone] LEANN LOZANO Unavailable LEANN LOZANO Primary Attending [phone] LEANN LOZANO Admitting [phone] RESULTS Patient: CARTER Barney Date of : November 22 9 LABORATORY RESULTS Information is not available LABORATORY NARRATIVE RESULTS Information is not available RADIOLOGY RESULTS ORDER 100: LUMBAR 2 TO 3V (L OINC: 37546-2) ORDER DATE: June 03, 2023 3:28:00 PM [facility] PERFORMING LAB: [address] [id number] Final Result Date: June 03, 2023 5:16:[address] [place] [address] Name: FINESSE MACHADO Exam Date: 06/03/2023 : 1995 Age 27 years Gender: F Physician: LEANN LOZANO Facility: [facility] Facility HSV: Outpatient Exam: LUMBAR 2 TO 3V Lumbar spine History: Acute lumbar back pain Findings: 3 views were obtained. There is mild accentuation of lumbar lordosis. No acute fracture or subluxation is identified. Disc heights are maintained. Vertebral body heights are maintained. Impression: No acute process. Films reviewed , interpreted and dictated by Dr. Marcos Baez. Transcribed by Fili Bolanos PA-C. Dictated By: MARCOS BAEZ Transcribed By: MARCOS BAEZ Transcribed On: 06/03/2023 12:16 PM Electronically signed by: MARCOS BAEZ 06/03/2023 Thank you for referring FINESSE MACHADO to [facility]. Legally authenticated by SINAI Spencer MD 2023-06-03 12:16:08 PATHOLOGY NARRATIVE RESULTS Information is not available [...] Description Effective Dates Offered Cessation Comment UpdatedBy [id number] Smoking Status Unknown If Ever Smoked SOCIAL [...] M54.16 Admission June 03, 2023 3:20:[address] [address] Discharge June 03, 2023 3:20:00 PM [facility] DISCHARGED TO HOME OR SELF CARE ENCOUNTER DIAGNOSES Notes information is not harinder ilable. Code System Diagnosis Onset Date Diagnosis information is not available. ABSTRACT DIAGNOSES Code System Diagnosis Updated By M54.16 ICD10 RADICULOPATHY, LUMBAR REGION [id number] on June 04, 2023 1:02:18 PM [facility] M54.16 ICD10 RADICULOPATHY, LUMBAR REGION [id number] on June 04, 2023 1:02:18 PM [facility] CARE TEAM Care Rapid Outsole Stitcher Role LEANN LOZANO Primary Care LEANN LOZANO Referring LEANN LOZANO Primary Attending LEANN LOZANO Admitting CARE TEAM CARE visual education teacher Role on Team Status Start Date End Date Update d By MARTA DUNAWAY PCP normal June 03, 2023 5:00:00 AM UT June 03, 2023 5:00:00 AM UT [id number] on June 03, 2023 3:20:46 PM UT MARTA DUNAWAY Referring normal June 03, 2023 5:00:00 AM UT June 03, 2023 5:00:00 AM UT [id number] on June 03, 2023 3:20:46 PM [facility] MARTA DUNAWAY Attending normal June 03, 2023 5:00:00 AM UT June 03, 2023 5:00:00 AM UT [id number] on June 03, 2023 3:20:46 PM [facility] MARTA DUNAWAY Admitting normal June 03, 2023 5:00:00 AM UT June 03, 2023 5:00:00 AM UT [id number] on June 03, 2023 3:20:46 PM [facility]
--- OUTSIDE RECORDS SUMMARY | 2023-09-03 21:31 | XMS_ITS | Continuity of Care Document ---
Author Name Unknown Address [address] [place] [phone] Organization [facility] Phone Care Team Providers Care Fuel Oil Clerk Name Role Phone LEANN LOZANO Unavailable LEANN LOZANO Admitting [phone] LEANN LOZANO Primary Care [phone] LEANN LOZANO Primary Attending MEDICATIONS HOME MEDICATIONS Status RXNORM Medication Dose [...] Description Effective Dates Offered Cessation Comment UpdatedBy [id number] Smoking Status Unknown If Ever Smoked SOCIAL [...] R30.0 Admission May 14, 2023 3:58:[address] [address] Discharge May 14, 2023 4:58:00 PM [facility] DISCHARGED TO HOME OR SELF CARE ENCOUNTER DIAGNOSES Notes information is not harinder ilable. Code System Diagnosis Onset Date Diagnosis information is not available. ABSTRACT DIAGNOSES Code System Diagnosis Updated By R30.0 ICD10 DYSURIA [id number] on 2023 3:46:35 PM UTC R30.0 ICD10 DYSURIA [id number] on 2023 3:46:35 PM UTC CARE TEAM Care Fuel Oil Clerk Role LEANN LOZANO Referring LEANN LOZANO Admitting LEANN LOZANO Primary Care LEANN LOZANO Primary Attending CARE TEAM CARE editor school photograph Role on Team Status Start Date End Date Update d By MARTA DUNAWAY PCP normal May 14, 2023 5:00:00 AM UTC May 14, 2023 5:00:00 AM UTC [id number] on May 14, 2023 7:30:25 PM UTC MARTA DUNAWAY Referring normal May 14, 2023 5:00:00 AM UTC May 14, 2023 5:00:00 AM UTC [id number] on May 14, 2023 7:30:25 PM UTC MARTA DUNAWAY Attending normal May 14, 2023 5:00:00 AM UTC May 14, 2023 5:00:00 AM UTC [id number] on May 14, 2023 7:30:25 PM UTC MARTA DUNAWAY Admitting normal May 14, 2023 5:00:00 AM UTC May 14, 2023 5:00:00 AM UTC [id number] on May 14, 2023 7:30:25 PM UTC PRATIK BALTAZAR APRN PCP normal May 3:59:06 PM UTC May 14, 2023 5:00:00 AM UTC [id number] on May 14, 2023 7:30:25 PM UTC
--- OUTSIDE RECORDS SUMMARY | 2023-09-03 21:31 | XMS_ITS | Continuity of Care Document ---
Author Name Unknown Address [address] [place], [place] [id number] Organization [facility] Phone Care Team Providers Care Meter Reading Clerk Name Role Phone LEANN LOZANO Primary Attending LEANN LOZANO Admitting LEANN LOZANO Unavailable [phone] LEANN LOZANO Primary Care TREATMENT PLAN DISCHARGE MEDICATIONS Status RXNORM Medication Dose Route Frequency Dates Comments U pdated By Patient discharge medication information is not available. PATIENT OPEN ORDERS Code System Description Frequency Occurrences Priority Start Date Ordering Physician Updated By 630-4 LOINC Bacteria identified in Urine by Culture ONE TIME 0 Routine May 18, 2023 4:36:00 PM [facility] MARTA Jenkins HAND MEAT SALTER [id number] on May 18, 2023 4:38:00 PM [facility] SCHEDULED PROCEDURES Code System Description Status [...] Description Effective Dates Offered Cessation Comment UpdatedBy [id number] Smoking Status Unknown If Ever Smoked SOCIAL [...] R30.0 Admission May 18, 2023 4:36:[address] [address] Discharge May 18, 2023 5:36:00 PM [facility] DISCHARGED TO HOME OR SELF CARE ENCOUNTER DIAGNOSES Notes information is not harinder ilable. Code System Diagnosis Onset Date Diagnosis information is not available. ABSTRACT DIAGNOSES Code System Diagnosis Updated By R30.0 ICD10 DYSURIA [id number] on 2023 6:34:01 PM UTC R30.0 ICD10 DYSURIA [id number] on 2023 6:34:01 PM UTC CARE TEAM Care Meter Reading Clerk Role LEANN LOZANO Primary Attending LEANN LOZANO Admitting LEANN LOZANO Referring LEANN LOZANO Primary Care CARE TEAM CARE machine edge bander Role on Team Status Start Date End Date Update d By MARTA DUNAWAY Referring normal May 18, 2023 5:00:00 AM UT May 18, 2023 5:00:00 AM UTC [id number] on May 18, 2023 8:10:17 PM UT MARTA DUNAWAY Attending normal May 18, 2023 5:00:00 AM UT May 18, 2023 5:00:00 AM UTC [id number] on May 18, 2023 8:10:17 PM UT MARTA DUNAWAY Admitting normal May 18, 2023 5:00:00 AM UT May 18, 2023 5:00:00 AM UTC [id number] on May 18, 2023 8:10:17 PM UT MARTA DUNAWAY PCP normal May 18, 2023 4:36:49 PM UTC May 18, 2023 5:00:00 AM UTC [id number] on May 18, 2023 8:10:17 PM [facility]
--- OUTSIDE RECORDS SUMMARY | 2023-09-03 21:31 | XMS_ITS | Continuity of Care Document ---
Author Name Unknown Address [address] [place], [place] [id number] Organization [facility] Phone Care Team Providers Care Medical Equipment Repairer Name Role Phone CLEO LEVI Primary Attending [phone] LEANN LOZANO Primary Care CLEO LEVI Admitting [phone] CLEO LEVI Unavailable ALLERGIES AND ADVERSE REACTIONS ALLERGIES AND ADVERSE REACTIONS Code System Allergy Substance Adverse Reaction Date Reaction (Severity) Comment Status Reported By Updated By No Known Allergies [id number] on July 04, 2023 3:07:12 PM UTC RESULTS Patient: CARTER Barney Date of : November 22 9 LABORATORY RESULTS ORDER 100: UA AND MICRO/CULT IF INDICATED (LOINC: 53345-3) ORDER DATE: July 04, 2023 2:59:00 PM UTC Specimen Source: URINE Specimen Type: Urine specime n PERFORMING LAB: [address] [id number] Result Comment: Final Result Date: July 04, [...] July 03 3:12:00 PM UTC (TECH: KSM) 05153-2 Bilirubin.total [Mass/volume] in Urine by Automated test strip N NEGATIVE NEGATIVE July 04, 2023 3:12:00 PM UTC (TECH: Ambassador) 5797-6 Ketones [Mass/volume] in Urine by Test strip N NEGATIVE NEGATIVE July 03 3:12:00 PM UTC (TECH: KSM) 2965-2 Specific gravity of Urine N 1.020 1.005 - 1.035 July 04, 2023 3:12:00 PM UTC (TECH: RelaborateM) 03373-4 Erythrocytes [#/volume] in Urine by Automated test strip N 250 (4+) /mcL NEGATIVE July 04, 2023 3:12:00 PM UTC (TECH: RelaborateM) 67758-8 pH of Urine by Automated test strip N 5.00 5.0 - 7.5 July 04, 2023 3:12:00 PM UTC (TECH: KSM) 82278-9 Protein [Presence] in Urine by Test strip N 30 (1+) mg/dL NEGATIVE July 04, 2023 3:12:00 PM UTC (TECH: RelaborateM) 07164-4 Urobilinogen [Mass/volume] in Urine by Automated test strip N NORM NORMAL July 04, 2023 3:12:00 PM UTC (TECH: RelaborateM) 10834-7 Nitrate [Presence] in Urine N NEGATIVE NEGATIVE July 04, 2023 3:12:00 PM UTC (TECH: KSM) 96271-3 Leukocytes [#/volume] in Urine by Test strip N NEGATIVE NEGATIVE July 04, 2023 3:12:00 PM UTC (TECH: RelaborateM) 90522-0 Other elements in Urine sediment N CONTAMINATED July 04, 2023 3:12:00 PM UTC (TECH: RelaborateM) 09946-8 Microscopic observation [Identifier] in Urine sediment by Light microscopy N YES July 04, 2023 3:12:00 PM UTC (TECH: RelaborateM) 51194-7 Erythrocytes [#/area] in Urine sediment by Microscopy high power field N 5-10 0-3 July 04, 2023 3:12:00 PM UTC (TECH: KSM) 5821-4 Leukocytes [#/area] in Urine sediment by Microscopy high power field N 0-3 NONE SEEN July 04, 2023 3:12:00 PM UTC (TECH: KSM) 96117-5 Epithelial cells.squamous [#/area] in Urine sediment by Microscopy high power field >30 NONE SEEN July 04, 2023 3:12:00 PM UTC (TECH: KSM) 5769-5 Bacteria [#/area] in Urine sediment by Microscopy high power field N TRACE NONE SEEN July 04, 2023 3:12:00 PM UTC (TECH: Ambassador) 90200-3 Mucus [#/area] in Urine sediment by Microscopy low power field N TRACE NONE SEEN July 04, 2023 3:12:00 PM UTC (TECH: KSM) ORDER 200: INFLUENZA A/B SCR EEN (LOINC: 00175-5) ORDER DATE: July 04, 2023 2:59:00 PM UTC Specimen Source: Swab Specimen Type: Swab PERFORMING LAB: [address] [id number] Result Comment: Final Result Date: July 04, 2023 3:13:00 PM UTC (TECH: KSM) LOINC TEST [place] [address]-5 Influenza virus A Ag [Presence] in Nose N NEGATIVE NEGATIVE July 03 3:13:00 PM UTC (TECH: KSM) 53348-2 Haemophilus influenz ae B Ag [Presence] in Serum POSITIVE NEGATIVE July 04, 2023 3:13:00 PM UTC (TECH: KSM) 10579-3 Internal control result N PASS PASS July [...] By Updated By Patient not on Self-Medications [id number] on July 04, 2023 3:07:12 PM UTC [...] Description Effective Dates Offered Cessation Comment UpdatedBy [id number] Smoking Status Unknown If Ever Smoked SOCIAL [...] for each vital sign as of July 04, 2023 6:04:03 PM UTC Loinc Code Vital Sign Activity Date Result Updated By 8310-5 Body temperature July 04, 2023 2:52:00 PM UTC 99.6 [degF] [id number] on July 04, 2023 2:59:12 PM UTC 8462-4 Diastolic blood pressure July 04, 2023 2:52:00 PM UTC 83.0 mm[Hg] [id number] on July 04, 2023 2:59:12 PM UTC 8867-4 Heart rate July 04, 2023 2:59:00 PM UTC 103 /min [id number] on July 04, 2023 5:03:57 PM UTC 64333-1 Oxygen saturation in Arterial blood by Pulse oximetry July 04, 2023 2:59:00 PM UTC 100.0 % [id number] on July 04, 2023 5:03:57 PM UTC 9279-1 Respiratory rate July 04, 2023 2:52:00 PM UTC 18 /min [id number] on July 04, 2023 2:59:12 PM UTC 8480-6 Systolic blood pressure June 2:52:00 PM UTC 130.0 mm[Hg] [id number] on July 04, 2023 2:59:12 PM UTC PEDIATRIC GROWTH CHART - VITAL [...] FEVER Admission July 04, 2023 2:43:00 PM UTC [address] [address] Discharge July 04, 2023 5:04:00 PM UTC DI SCHARGED TO HOME OR SELF CARE ENCOUNTER DIAGNOSES Notes information is not harinder ilable. Code System Diagnosis Onset Date Diagnosis information is not available. ABSTRACT DIAGNOSES Code System Diagnosis Updated By Abstract Diagnosis informati on is not available. CARE TEAM Care Medical Equipment Repairer Role CLEO LEVI Primary Attending LEANN LOZANO Primary Care CLEO LEVI Admitting CLEO LEVI Referring CARE TEAM CARE morphologist Role on Team Status Start Date End Date Update d By AMITA PHILIP Referring normal July 04, 2023 3:37:27 PM UT July 04, 2023 5:04:00 PM UTC [id number] on July 04, 2023 3:37:27 PM UT AMITA PHILIP Attending normal July 04, 2023 3:37:27 PM UTC July 04, 2023 5:04:00 PM UTC [id number] on July 04, 2023 3:37:27 PM [facility] AMITA PHILPI Admitting normal July 04, 2023 3:37:27 PM UT July 04, 2023 5:04:00 PM UTC [id number] on July 04, 2023 3:37:27 PM UT MARTA DUNAWAY PCP normal July 04, 2023 2:43:30 PM UTC July 04, 2023 5:04:00 PM UTC [id number] on July 04, 2023 3:37:27 PM [facility]
--- OUTSIDE RECORDS SUMMARY | 2023-09-03 21:31 | XMS_ITS | Continuity of Care Document ---
Author Name Unknown Address [address] [place] [phone] Organization [facility] Phone Care Team Providers Care Tong Setter Name Role Phone LEANN LOZANO Primary Attending LEANN LOZANO Admitting [phone] LEANN LOZANO Unavailable [phone] LEANN LOZANO Primary Care [phone] RESULTS Patient: CARTER Barney Date of : November 22 9 LABORATORY RESULTS Information is not available LABORATORY NARRATIVE RESULTS Information is not available RADIOLOGY RESULTS Information is not available PATHOLOGY NARRATIVE RESULTS Information is not available MICROBIOLOGY RESULTS ORDER 100: CULTURE URINE (LO INC: 630-4) ORDER DATE: May 18, 2023 4:38:00 PM UTC PERFORMING LAB: [address] [id number] Specimen Source: URINE Result Comment: May 19, 2023 12:27:00 PM UTC (TECH: LT) >100,000 COL/ML Gram Negative Rods Final Result Date: May 20, 2023 11:57:00 AM UTC (TECH: LT) ISOLATE #1 Organism: Escherichia coli Result Comment: Final Result Date: May 20, 2023 11:57:00 AM UTC (TECH: LT) TAWANNAINC ANTIBIOTIC ILIR [place] Y 17651-8 Ampicillin >16.0 Systemic R May 20, 2023 11:57:00 AM UTC (TECH: LT) 89652-9 Ampicillin >16.0 Urine R May 20, 2023 11:57:00 AM UTC (TECH: LT) 32-3 Amp/Sulbactam 0.0 Systemic I Februa 2023 11:57:00 AM UTC (TECH: LT) 32-3 Amp/Sulbactam 0.0 Urine I Februa 2023 11:57:00 AM UTC (TECH: LT) 27669-0 Aztreonam <= 4.0 Systemic S May 11:57:00 AM UTC (TECH: LT) 73114-9 Aztreonam <= 4.0 Urine S May 11:57:00 AM UTC (TECH: LT) 19182-4 Cefazolin <= 2.0 Systemic S May 11:57:00 AM UTC (TECH: LT) 30560-7 Cefazolin <= 2.0 Urine S May 11:57:00 AM UTC (TECH: LT) 64552-7 Cefepime <= 2.0 Systemic S May 11:57:00 AM UTC (TECH: LT) 16905-8 Cefepime <= 2.0 Urine S May 11:57:00 AM UTC (TECH: LT) 108-1 Cefotaxime <= 2.0 Systemic S May 20, 2023 11:57:00 AM UTC (TECH: LT) 108-1 Cefotaxime <= 2.0 Urine S May 20, 2023 11:57:00 AM UTC (TECH: LT) 50803-8 Cefoxitin <= 8.0 Systemic S May 11:57:00 AM UTC (TECH: LT) 74386-0 Cefoxitin <= 8.0 Urine S May 11:57:00 AM UTC (TECH: LT) 90944-1 Ceftazidime <= 1.0 Systemic S May 20, 2023 11:57:00 AM UTC (TECH: LT) 72335-7 Ceftazidime <= 1.0 Urine S May 20, 2023 11:57:00 AM UTC (TECH: LT) 09755-2 Ceftriaxone <= 1.0 Systemic S May 20, 2023 11:57:00 AM UTC (TECH: LT) 24211-2 Ceftriaxone <= 1.0 Urine S May 20, 2023 11:57:00 AM UTC (TECH: LT) 46588-9 Cefuroxime <= 4.0 Systemic S May 20, 2023 11:57:00 AM UTC (TECH: LT) 82423-4 Cefuroxime <= 4.0 Urine S May 20, 2023 11:57:00 AM UTC (TECH: LT) 04938-5 Ciprofloxacin <= 1.0 Systemic S Februa ry 2023 11:57:00 AM UTC (TECH: LT) 96643-4 Ciprofloxacin <= 1.0 Urine S Februa ry 2023 11:57:00 AM UTC (TECH: LT) 36803-5 Ertapenem <= 0.5 Systemic S May 11:57:00 AM UTC (TECH: LT) 80178-5 Ertapenem <= 0.5 Urine S May 11:57:00 AM UTC (TECH: LT) 71748-1 Gentamicin <= 4.0 Systemic S May 20, 2023 11:57:00 AM UTC (TECH: LT) 95232-5 Gentamicin <= 4.0 Urine S May 20, 2023 11:57:00 AM UTC (TECH: LT) 20440-2 Levofloxacin <= 2.0 Systemic S Februar y 2023 11:57:00 AM UTC (TECH: LT) 01073-7 Levofloxacin <= 2.0 Urine S Februar y 2023 11:57:00 AM UTC (TECH: LT) Meropenem <= 1.0 Systemic S May 11:57:00 AM UTC (TECH: LT) Meropenem <= 1.0 Urine S May 11:57:00 AM UTC (TECH: LT) 89963-2 Nitrofurantoin <= 32.0 Systemic S Febru eula2023 11:57:00 AM UTC (TECH: LT) 45067-7 Nitrofurantoin <= 32.0 Urine S Febru eula2023 11:57:00 AM UTC (TECH: LT) 50438-1 Pip/Tazo <= 16.0 Systemic S May 11:57:00 AM UTC (TECH: LT) 29777-7 Pip/Tazo <= 16.0 Urine S May 11:57:00 AM UTC (TECH: LT) 10957-7 Tetracycline >8.0 Systemic R Februar y 2023 11:57:00 AM UT (TECH: LT) 08232-1 Tetracycline >8.0 Urine R Februar y 2023 11:57:00 AM UT (TECH: LT) 93323-8 Tobramycin <= 4.0 Systemic S May 20, 2023 11:57:00 AM UT (TECH: LT) 91802-7 Tobramycin <= 4.0 Urine S May 20, 2023 11:57:00 AM UT (TECH: LT) 516-5 Trimeth/Sulfa >0.0 Systemic R Februa ry 2023 11:57:00 AM UT (TECH: LT) 516-5 Trimeth/Sulfa >0.0 Urine R Februa ry 2023 11:57:00 AM [facility] (TECH: LT) BLOOD ADMIN RESULTS [...] Description Effective Dates Offered Cessation Comment UpdatedBy [id number] Smoking Status Unknown If Ever Smoked SOCIAL [...] R30.0 Admission May 18, 2023 4:36:[address] [id number] Discharge May 18, 2023 5:36:00 PM [facility] DISCHARGED TO HOME OR SELF CARE ENCOUNTER DIAGNOSES Notes information is not harinder ilable. Code System Diagnosis Onset Date Diagnosis information is not available. ABSTRACT DIAGNOSES Code System Diagnosis Updated By R30.0 ICD10 DYSURIA [id number] on 2023 6:34:01 PM UTC R30.0 ICD10 DYSURIA [id number] on 2023 6:34:01 PM UTC CARE TEAM Care Tong Setter Role LEANN LOZANO Primary Attending LEANN LOZANO Admitting LEANN LOZANO Referring LEANN LOZANO Primary Care CARE TEAM CARE steel checker Role on Team Status Start Date End Date Update d By MARTA DUNAWAY Referring normal May 18, 2023 5:00:00 AM UTC May 18, 2023 5:00:00 AM UTC [id number] on May 18, 2023 8:10:17 PM UTC MARTA DUNAWAY Attending normal May 18, 2023 5:00:00 AM UTC May 18, 2023 5:00:00 AM UTC [id number] on May 18, 2023 8:10:17 PM UTC MARTA DUNAWAY Admitting normal May 18, 2023 5:00:00 AM UTC May 18, 2023 5:00:00 AM UTC [id number] on May 18, 2023 8:10:17 PM UTC MARTA DUNAWAY PCP normal May 18, 2023 4:36:49 PM UTC May 18, 2023 5:00:00 AM UTC [id number] on May 18, 2023 8:10:17 PM UTC
[2023-09-04 00:33] VITALS: BP 145/95; PULSE 73; RESP 18; TEMP 36.8; O2SAT 99
--- NOTE | 2023-09-04 00:34 | PC.NURSE ---
Pt brought to room 7 from [facility], pt states she cut her left thumb at home around 1815 with a knife on accident. Bleeding is controlled, will cleanse with soap and water.
[2023-09-04] MEDS: TET/DIPHTH/PERT-ADULT 0.5ML SYRINGE 0.5 ML IM (00:51)
--- NOTE | 2023-09-04 00:51 | ED_ITS ---
Discharge Plan Disposition Patient Disposition: Home, Self-Care Chief Complaint: Wound/Laceration Prescriptions Prescriptions: No Action Flintstones Complete Tablet,Chewable 1 tab PO .two tablets a day doxylamine-pyridoxine (vit B6) [Diclegis] 10-10 mg tablet,delayed release (DR/EC) 1 tab PO BID Qty: 30 3RF oxcarbazepine 150 mg tablet extended release 24 hr 150 mg PO DAILY Qty: 30 2RF ciprofloxacin HCl 500 mg tablet 500 mg PO BID Qty: 20 0RF Referrals Follow up/Referrals: Renetta Bedoya APRN [Primary Care Provider] - See instructions Activity Restrictions/Add. Instructions Additional Instructions/Restrictions: At this time it was felt you are safe to be discharged home. If new or worsening symptoms please do not hesitate to return the emergency department. It is okay to shower and wash her hands, do not submerge her hand in water for long periods of time of the affected thumb. The glue should fall off as your skin heals. If signs or symptoms of infection do not hesitate to return the emergency department or your family doctor's office. Clinical Impressions Clinical Impression: Laceration of left thumb Instructions Patient Instructions: DI for Laceration Repair Discharge ED Provider: Boris Andino General Adult HPI General Chief complaint: Wound/Laceration Stated complaint: AO 09/02 18:15 cut on left thumb Time Seen by Provider: 09/04/23 00:41 Mode of Arrival: Family Vehicle Source of Information: Patient Limitations: No Limitations Description of Symptoms (Recalled from ER Triage Doc. by RN): laceration to left thumb, no active bleeding at time of triage. needs tetanus History of Present Illness HPI narrative: Patient is a 27-year-old female that is right-handed who presents emergency department for evaluation of wound to her left thumb. History is obtained by patient at bedside, she was attempting to open up a cat toy when the knife inadvertently hit her left thumb causing a wound that caused her to present here for continued evaluation. No other trauma described. Tdap is not up-to-date. Related Data Home Medications Medication Instructions Recorded Confirmed pediatric multivitamin no.76 1 tab PO .two tablets a day 06/15/19 06/15/19 (Flintstones Complete chewable tablet) Previous Rx's Medication Instructions Recorded doxylamine 10 mg-pyridoxine (vit 1 tab PO BID #30 tabs 06/20/19 B6) 10 mg tablet,delayed release (Diclegis) oxcarbazepine 150 mg 150 mg PO DAILY #30 tabs 06/27/19 tablet,extended release 24 hr ciprofloxacin HCl 500 mg tablet 500 mg PO BID #20 tabs 09/19/22 Allergies Allergy/AdvReac Type Severity Reaction Status Date / Time erythromycin base Allergy Unknown BODY TURNS Verified 06/15/19 09:41 [ERYTHROMYCIN BASE] [facility] Disclaimer: The information contained in this section may have been updated after the patient was seen, as this information can be updated by other users. Social History Smoking Status: Unknown if ever smoked alcohol intake: never current occupational status: unemployed Travel in the last 8 weeks: None ROS Obtained: Yes Systems reviewed as appropriate & no additional complaints except as documented Physical Exam General General appearance: alert and in no apparent distress Head Head exam: atraumatic and normocephalic Eye Eye exam: Present PERRL ENT ENT exam: Present mucous membranes moist Neck Neck exam: Present normal inspection Chest Chest inspection: Present normal inspection and symmetric chest wall rise Respiratory Respiratory exam: Absent respiratory distress Cardiovascular Cardiovascular exam: Present regular rate and normal rhythm Abdominal Exam Abdominal exam: Present soft Extremities Exam Extremities exam: Absent normal inspection (1.5 cm curvilinear laceration on the radial side of the left thumb that is hemostatic and well-approximated. It does not involve the nailbed. Distal capillary refill preserved.) Neurological Exam Neurological exam: Present alert Psychiatric Psychiatric exam: Present normal affect Skin Skin exam: Present warm and dry Medical Decision Making Jassi Inquiry Pt receiving controlled substance: No Vital Signs: 09/03/23 21:21 09/04/23 00:33 Temperature 98.2 F 98.2 F Temperature Source Oral Oral Pulse Rate 73 Pulse Rate [Right Brachial] 100 H Respiratory Rate 18 18 Blood Pressure 145/95 H Blood Pressure [Right Arm] 144/94 H Blood Pressure Mean [Right Arm] 110 Blood Pressure Source [Right Arm] Automatic Cuff Blood Pressure Position Sitting Blood Pressure Position [Right Arm] Sitting 02 Sat by Pulse Oximetry 100 99 Oxygen Delivery Method Room Air Room Air Orders (Tests/Meds): ED MEDICATIONS Discontinued Medications Generic Name Dose Route Start Last Admin Trade Name Freq PRN Reason Stop Dose Admin Tetanus/Reduced Diphtheria/Acell Pertussis 0.5 ml 09/04/23 00:44 Tet/Diphth/Pert-Adult 0.5ml Syringe IM 09/04/23 00:45 .ONCE ONE Medical Decision Narrative: In summary patient is a 27-year-old female past medical history described above presents emergency department for evaluation of a wound. Patient is hemodynamically stable nontoxic-appearing upon arrival, afebrile. Laceration was cleaned with Hibiclens and underwent primary repair with glue at bedside. Tdap was updated. Patient is appropriate for discharge. Procedure: Procedure performed was laceration repair. Procedure performed by Boris Andino. 1.5 cm laceration over the dorsal aspect of the radial side of the left thumb was glued with skin adhesive. Wound was well-approximated. Patient tolerated the procedure well. Finger was splinted at bedside with prefabricated splint. There were no immediate complications. Critical Care Critical Care Time Critical Care Time: No
[2023-09-04 01:09] VITALS: BP 142/94; PULSE 71; RESP 16; TEMP 36.8; O2SAT 99
== END 2023-09-04 01:10 | disposition home or self-care (01) ==
PROVIDERS: Emergency Provider Emergency Medicine; PCP Nurse Practitioner Family
DX: S61.012A Laceration without foreign body of left thumb without damage to nail, initial encounter (principal); W26.0XXA Contact with knife, initial encounter; Z23 Encounter for immunization
CPT/HCPCS: 12001; 90471; 90715; 99283

== ENCOUNTER 2023-09-04 17:55 | Emergency (ER) | payer MEDICAID, SELFPAY ==
[2023-09-04 17:56] VITALS: BP 124/92; PULSE 77; RESP 13; TEMP 36.9; O2SAT 100; BMI 22.6
[2023-09-04] MEDS: LIDOCAINE 1% 10ML MDV 10 ML IJ (18:42)
[2023-09-04] MEDS: cephALEXin 500MG CAPSULE 500 MG PO (19:23)
--- NOTE | 2023-09-04 19:58 | PC.NURSE ---
Nurse Ronal performing wound care and splint placement at this time.
[2023-09-04] MEDS: BACITRACIN OINT 0.9GM UDP 1 EACH TP (20:05)
--- NOTE | 2023-09-04 20:10 | PC.NURSE ---
left thumb sutures in place, bacitracin ointment applied, non stick pad applied, dressed with kerlix. Thumb splint applied wrapped with coban.
--- NOTE | 2023-09-04 20:13 | HMH.EDGENADL ---
Discharge Plan Disposition Patient Disposition: Home, Self-Care Condition: Good Prescriptions Prescriptions: New cephalexin 500 mg capsule 500 mg PO TID 7 Days Qty: 21 0RF No Action Flintstones Complete Tablet,Chewable 1 tab PO .two tablets a day doxylamine-pyridoxine (vit B6) [Diclegis] 10-10 mg tablet,delayed release (DR/EC) 1 tab PO BID Qty: 30 3RF oxcarbazepine 150 mg tablet extended release 24 hr 150 mg PO DAILY Qty: 30 2RF ciprofloxacin HCl 500 mg tablet 500 mg PO BID Qty: 20 0RF Referrals Follow up/Referrals: Renetta Bedoya APRN [Primary Care Provider] - See instructions Activity Restrictions/Add. Instructions Additional Instructions/Restrictions: You were evaluated in the emergency department today. Please keep your wound clean and dry. Do not submerge under any water. Keep it covered to protect it. Your sutures will need to be removed in 7 to 10 days. Monitor closely for any source of infection, as you are at risk of infection given that they were placed nearly 24 hours later. 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 Take Tylenol and ibuprofen at home as needed for pain. Return to the emergency department for new or worsening symptoms. Clinical Impressions Clinical Impression: Laceration of left thumb Qualifiers: Encounter type: subsequent encounter Damage to nail status: without damage Foreign body presence: without foreign body Qualified Code(s): S61.012D - Laceration without foreign body of left thumb without damage to nail, subsequent encounter Instructions Patient Instructions: DI for Laceration Repair Discharge ED Provider: Sujey Miranda General Adult HPI General Chief complaint: Wound/Laceration Stated complaint: Glue came off laceration,seen last night Time Seen by Provider: 09/04/23 18:08 Mode of Arrival: Ambulatory Source of Information: Patient Limitations: No Limitations Description of Symptoms (Recalled from ER Triage Doc. by RN): pt presents to ED with laceration on her left thumb. pt cut finger yesterday at work, pt did come to ED and glue placed on laceration. pt reports today while she was at work, she began to notice bleeding and that the glue had come off her laceration. History of Present Illness HPI narrative: This patient is a 27-year-old female who denies significant past medical history presenting to the emergency department for evaluation with concern for left thumb laceration. She was evaluated here yesterday for the thumb laceration, and it was repaired with glue, but she works with her hands frequently wearing gloves and washing her hands at work, and the glue came off early. The wound keeps opening up and bleeding, so she is requesting sutures at this time. No other concerns noted. No new injuries noted. The injury happened initially with a knife at home and she was up-to-date on tetanus yesterday on medical record review. Related Data Home Medications Medication Instructions Recorded Confirmed pediatric multivitamin no.76 1 tab PO .two tablets a day 06/15/19 06/15/19 (Flintstones Complete chewable tablet) Previous Rx's Medication Instructions Recorded doxylamine 10 mg-pyridoxine (vit 1 tab PO BID #30 tabs 06/20/19 B6) 10 mg tablet,delayed release (Diclegis) oxcarbazepine 150 mg 150 mg PO DAILY #30 tabs 06/27/19 tablet,extended release 24 hr ciprofloxacin HCl 500 mg tablet 500 mg PO BID #20 tabs 09/19/22 cephalexin 500 mg capsule 500 mg PO TID 7 days #21 caps 09/04/23 Allergies Allergy/AdvReac Type Severity Reaction Status Date / Time erythromycin base Allergy Unknown BODY TURNS Verified 06/15/19 09:41 [ERYTHROMYCIN BASE] [facility] Disclaimer: The information contained in this section may have been updated after the patient was seen, as this information can be updated by other users. Social History Smoking Status: Never smoker alcohol intake: never current occupational status: unemployed Travel in the last 8 weeks: None ROS Obtained: Yes All systems reviewed & no additional complaints except as documented Physical Exam General General appearance: alert and in no apparent distress Head Head exam: atraumatic and normocephalic Eye Eye exam: Present normal appearance, PERRL and EOMI ENT ENT exam: Present normal exam, normal oropharynx, mucous membranes moist and normal external ear exam Neck Neck exam: Present normal inspection, full ROM and trachea midline; Absent tenderness Chest Chest inspection: Present normal inspection and symmetric chest wall rise; Absent tenderness Respiratory Respiratory exam: Present normal lung sounds bilaterally; Absent respiratory distress, wheezes, stridor or accessory muscle use Cardiovascular Cardiovascular exam: Present regular rate and normal rhythm Abdominal Exam Abdominal exam: Present soft; Absent distention, tenderness or guarding Extremities Exam Extremities exam: Present full ROM, normal capillary refill and other (Superficial curvilinear laceration to the left thumb. Neurovascularly intact distally. No contamination. No concerns for infection); Absent tenderness or edema Back Exam Back exam: Present normal inspection and full ROM; Absent tenderness Neurological Exam Neurological exam: Present alert, oriented X3, CN II-XII intact and normal gait; Absent motor sensory deficit Psychiatric Psychiatric exam: Present normal affect and normal mood Skin Skin exam: Present warm and dry Medical Decision Making Medical Records Medical records reviewed: Yes I reviewed the patient's medical records. Jassi Inquiry Pt receiving controlled substance: No Vital Signs: 09/04/23 17:56 Temperature 98.5 F Temperature Source Oral Pulse Rate [Left Radial] 77 Respiratory Rate 13 Blood Pressure [Right Arm] 124/92 H Blood Pressure Mean [Right Arm] 102 02 Sat by Pulse Oximetry 100 Oxygen Delivery Method Room Air Lab Data Lab results reviewed: Yes I reviewed the patient's lab results. Orders (Tests/Meds): ED MEDICATIONS Discontinued Medications Generic Name Dose Route Start Last Admin Trade Name Freq PRN Reason Stop Dose Admin Bacitracin 1 each 09/04/23 19:27 09/04/23 20:05 Bacitracin Oint 0.9gm Udp TP 09/04/23 19:28 1 each ONCE ONE Administration Cephalexin HCl 500 mg 09/04/23 18:58 09/04/23 19:23 Cephalexin 500mg Capsule PO 09/04/23 18:59 500 mg ONCE ONE Administration Lidocaine HCl 10 ml 09/04/23 18:33 09/04/23 18:42 Lidocaine 1% 10ml Mdv IJ 09/04/23 18:34 10 ml ONCE ONE Administration Medical Decision Narrative: In summary, this patient is a 27-year-old female presenting to the Emergency Department for evaluation of laceration to the left thumb. Differential diagnoses considered include but are not limited to laceration, abrasion, foreign body, infected wound, neurovascular injury. Ruling out the most morbid conditions drove assessment. I reviewed patient's past medical records and noted evaluation and repair yesterday with updated Tdap. On exam, patient is well-appearing and neurovascularly intact with no evidence of wound contamination or foreign body. I explained to her that sutures 24 hours later higher risk for infection, but she wants to proceed with sutures as opposed to glue because she is concerned the glue will just come off again. Given this, will thoroughly irrigate the wound with sterile saline as well as administer Keflex to prevent wound infection. Patient tolerated suturing well without difficulty. She remained neurovascularly intact afterward. I did do a digital block for the purposes of the laceration repair. She tolerated this well. Please see procedure notes for further documentation. After laceration repair, her wound was dressed with bacitracin, Vaseline gauze, and her thumb splint that she was provided yesterday was applied. She was discharged home with prescription for Keflex to prevent infection, instructions for wound care and close TRAILER DRIVER follow-up, and strict return precautions. Procedures Laceration Laceration 1: Site: thumb Side (If applicable): left Size (cm): 1.5 Description: linear (curvilinear) Depth: simple, single layer Local Anesthetic: lidocaine 1% Amount of anesthesia used (mL): 5 Pre-repair: wound explored, irrigated extensively and deep structures intact Skin layer closed with: nylon Size (cm): 5-0 Number of sutures: 3 Technique: simple, interrupted Nerve Block Nerve Block 1: Time out performed: Yes Local Anesthetic: lidocaine 1% Amount of anesthesia used (mL): 5 Side: Left Nerve Blocks: digital Procedure Successful: Yes Patient Tolerated Procedure: well and no complications Complications: none Critical Care Critical Care Time Critical Care Time: No
[2023-09-04 20:17] VITALS: BP 128/89; PULSE 83; RESP 18; TEMP 36.5; O2SAT 100
[2023-09-04 20:21] VITALS: BP 128/89; PULSE 83; RESP 18; TEMP 36.5; O2SAT 100
== END 2023-09-04 20:15 | disposition home or self-care (01) ==
PROVIDERS: Emergency Provider Emergency Medicine; PCP Nurse Practitioner Family
DX: S61.012A Laceration without foreign body of left thumb without damage to nail, initial encounter (principal); W26.0XXA Contact with knife, initial encounter
CPT/HCPCS: 12001; 99283

== ENCOUNTER 2025-02-17 09:40 | Emergency (ER) | payer MEDICAID, SELFPAY ==
--- OUTSIDE RECORDS SUMMARY | 2025-02-05 04:24 | XMS_ITS | Continuity of Care Document ---
Author Organization [facility] Phone Care Team Providers Care Aircraft Steel Fabricator Name Role Phone LEANN LOZANO Admitting LEANN LOZANO Primary Attending LEANN LOZANO Unavailable [phone] LEANN LOZANO Primary Care [phone] ALLERGIES AND ADVERSE REACTIONS ALLERGIES AND ADVERSE REACTIONS Code System Allergy Substance Adverse Reaction Date Reaction (Severity) [place] [id number] RXNorm Azithromycin Adverse reaction to substance Not Specified active [id number] on March 13, 2023 7:39:42 AM UTC RESULTS Patient: CARTER Barney Date of : [birth year] 9 LABORATORY RESULTS ORDER 200: VAGINITIS PLUS VG (LOINC: 20027-1) ORDER DATE: January 31, 2025 8:09:00 PM UTC Specimen Source: Swab Specimen Type: Swab PERFORMING LAB: [facility] 9 [facility] [id number] Result Comment: February 02, 2025 10:09:00 AM UTC Performed at: =[facility] Result Comment: February 02, 2025 10:09:00 AM UTC [address] [place] [id number] Result Comment: February 02, 2025 10:09:00 AM UTC Accounting Specialist: Stephie Martin MD, Phone: [phone] Result Comment: February 02, 2025 10:09:00 AM UTC Final Result Date: January 31, 2025 8:09:00 PM UTC (TECH: LAB) LOINC TEST FLAG [place] [address]-5 Atopobium vaginae DNA [Presence] in Vaginal fluid by Probe and target amplification method High - 2 Score January 31, 2025 8:09:00 PM UTC (TECH: LAB) 47732-5 Bacterial vaginosis associated bacterium 2 DNA [Presence] in Vaginal fluid by Probe and target amplification method High - 2 Score January 31, 2025 8:09:00 PM UTC (TECH: LAB) 07822-4 Megasphaera sp type 1 DNA [Presence] in Vaginal fluid by Probe and target amplification method High - 2 Score January 31, 2025 8:09:00 PM UTC (TECH: LAB) 54621-2 Darlene albicans DNA [Presence] in Vaginal fluid by Probe and target amplification method N Negative Negative January 31, 2025 8:09:00 PM UTC (TECH: LAB) 11924-1 Darlene glabrata DNA [Presence] in Vaginal fluid by Probe and target amplification method N Negative Negative January 31, 2025 8:09:00 PM UTC (TECH: LAB) 46351-4 Trichomonas vaginalis DNA [Presence] in Vaginal fluid by Probe and target amplification method N Negative Negative January 31, 2025 8:09:00 PM UTC (TECH: LAB) 08342-1 Chlamydia trachomatis DNA [Presence] in Unspecified specimen by Probe and target amplification method N Negative Negative January 31, 2025 8:09:00 PM UTC (TECH: LAB) 26918-4 Neisseria gonorrhoeae DNA [Presence] in Unspecified specimen by Probe and target amplification method N Negative Negative January 31, 2025 8:09:00 PM UTC (TECH: LAB) ORDER 300: MYCOPLASMA GENITA LIUM LEBRON UR (LOINC: 76317-1) ORDER DATE: January 31, 2025 8:09:00 PM UTC Specimen Source: URINE Specimen Type: Urine specime n PERFORMING LAB: [address] [id number] Result Comment: February 03, 2025 9:08:00 AM UTC Performed at: =[facility] Result Comment: February 03, 2025 9:08:00 AM UTC [address] [place] [id number] Result Comment: February 03, 2025 9:08:00 AM UTC Accounting Specialist: Stephie Martin MD, Phone: [phone] Result Comment: February 03, 2025 9:08:00 AM UTC Final Result Date: February 03, 2025 8:09:00 PM UTC (TECH: LAB) LOINC TEST [place] [address]-4 Mycoplasma genitaliu m DNA [Presence] in Urine by LEBRON with probe detection N Negative Negative February 03, 2025 8:09:00 PM UTC (TECH: LAB) LABORATORY NARRATIVE RESULTS Information is not available RADIOLOGY RESULTS Information is not available PATHOLOGY NARRATIVE RESULTS Information is not available MICROBIOLOGY RESULTS ORDER 100: CULTURE URINE (LO INC: 630-4) ORDER DATE: January 31, 2025 8:09:00 PM UTC PERFORMING LAB: [address] [id number] Specimen Source: URINE Specimen Type: Result Comment: February 01, 2025 8:25:00 AM UTC (TECH: [facility]) >100,000 COL/ML Gram Negative Rods Result Comment: February 01, 2025 8:26:00 AM UTC (TECH: [facility]) IDENTIFICATION AND SUSCEPTIBILITY TESTING PERFORMED AT [address] [place] [address] Final Result Date: February 02, 2025 11:31:00 AM UTC (TECH: [facility]SM) ISOLATE #1 Organism: Escherichia coli Result Comment: Final Result Date: February 02, 2025 11:31:00 AM UTC (TECH: [facility]) [facility] ANTIBIOTIC ILIR [place] Y 54027-2 Aztreonam < 2.0 Urine S January 11:31:00 AM UTC (TECH: KSM) 37245-2 Ciprofloxacin 1.0 Urine R Octobe r 2024 11:31:00 AM UTC (TECH: KSM) 6984-9 ESBL Urine N January 11:31:00 AM UTC (TECH: KSM) 79842-8 Levofloxacin 1.0 Urine I February 02, 2025 11:31:00 AM UTC (TECH: KSM) 38340-6 Meropenem < 0.5 Urine S January 11:31:00 AM UTC (TECH: KSM) 49257-8 Amikacin <= 8.0 Urine S January 11:31:00 AM UTC (TECH: [employer]) 91386-4 Ampicillin >16.0 Urine R January 112024 11:31:00 AM UTC (TECH: [employer]) 32-3 Amp/Sulbactam 0.0 Urine I Octobe r 2024 11:31:00 AM UTC (TECH: [employer]) 49647-4 Cefepime <= 1.0 Urine S January 11:31:00 AM UTC (TECH: [employer]) 66709-3 Ceftazidime <= 2.0 Urine S February 02, 2025 11:31:00 AM UTC (TECH: [employer]) 35275-1 Ceftriaxone <= 1.0 Urine S February 02, 2025 11:31:00 AM UTC ([employer]: [employer]) 37777-1 Ertapenem <= 0.25 Urine S January 11:31:00 AM UTC (TECH: [employer]) 02763-6 Gentamicin <= 2.0 Urine S January 112024 11:31:00 AM UTC (TECH: [employer]) 14869-7 Nitrofurantoin <= 16.0 Urine S Octob er 2024 11:31:00 AM UTC (TECH: [employer]) 20066-7 Piperacillin/Tazo 0.0 Urine S Oc tober 2024 11:31:00 AM UTC (TECH: [employer]) 06147-4 Tetracycline >8.0 Urine R February 02, 2025 11:31:00 AM UTC (TECH: [employer]) 05975-7 Tobramycin <= 2.0 Urine S January 112024 11:31:00 AM UTC (TECH: [employer]) 516-5 Trimeth/Sulfa >0.0 Urine R Octobe r 2024 11:31:00 AM UTC (TECH: [employer]) 34404-2 Sensitivity Required? Systemic February 02, 2025 11:31:00 AM UTC (TECH: [employer]) BLOOD ADMIN RESULTS Information is not available MEDICATIONS HOME MEDICATIONS Status RXNORM NDC Medication Dose Route Frequency Dates Comments Reported By Updated By Drug Treatment Unknown DISCHARGE MEDICATIONS Status RXNORM ND Medication Dose Route Frequency Dates Dis pense Data Comments Physician Updated By No Discharge Medication Info rmation Available INPATIENT MEDICATIONS Status RXNORM NDC Medication Dose Route Frequency Rat e Quantity Dates Indication Dispense Data Comments Physician Updated By No Inpatient Medication Info rmation Available SOCIAL HISTORY SOCIAL HISTORY - Smoking Status SNOMED-CT Social History Element Description Effective Dates Offered Cessation Comment Updated By [id number] Smoking Status Unknown If Ever Smoked SOCIAL HISTORY - Gender Sex: Female SOCIAL HISTORY - Status : status i nformation is not available Intention in Next Year: intention information is not available SOCIAL HISTORY - Assessments Code System Description Status Date Value of Assessment Updated By Comment Assessment Information is no t available SOCIAL HISTORY - [place] Affiliation [place] information is not av ailable SOCIAL HISTORY - Legal Sex Legal Sex information is not available SOCIAL HISTORY - Sexual Behavior Sexual Orientation Gender Identity SNOMED-CT Description SNO MED -CT Description Activity Level No of Partners Partner Type UpdatedBy Information is not available SOCIAL HISTORY - Occupation Occupation information is no t available HEALTH CONCERNS Problems Concern Status Health Concern problem infor mation not available. Smoking Status Status Years Used Consumed packs p er day Health Concern smoking histo ry information not available. Family History Concern Status Health Concern family histor y information not available. ENCOUNTERS ENCOUNTER INFORMATION Reason for Visit R30.0 Admission January 31, 2025 8:08:[address] [address] Discharge January 31, 2025 9:08:00 PM [facility] DISCHARGED TO HOME OR SELF CARE ENCOUNTER DIAGNOSES Notes information is not harinder ilable. Code System Diagnosis Onset Date Diagnosis information is not available. ABSTRACT DIAGNOSES Code System Diagnosis Updated By Abatement Date N76.0 ICD10 ACUTE VAGINITIS [id number] on O ctober 2024 9:23:18 AM [facility] R30.0 ICD10 DYSURIA [id number] on 2024 9:23:18 AM [facility] N76.0 ICD10 ACUTE VAGINITIS [id number] on O ctober 2024 9:23:18 AM [facility] R30.0 ICD10 DYSURIA [id number] on 2024 9:23:18 AM [facility] CARE TEAM Care Aircraft Steel Fabricator Role LEANN LOZANO Admitting LEANN LOZANO Primary Attending LEANN LOZANO Referring LEANN LOZANO Primary Care CARE TEAM CARE medical assistant float Role on Team Location Telecom Status Start Date End Harry e Updated By MARTA DUNAWAY Referring normal January 31, 2025 4:00:00 AM [facility] January 31, 2025 9:08:00 PM [facility] [id number] on February 01, 2025 10:19:57 AM [facility] MARTA DUNAWAY Attending normal January 31, 2025 4:00:00 AM [facility] January 31, 2025 9:08:00 PM [facility] [id number] on February 01, 2025 10:19:57 AM [facility] MARTA DUNAWAY Admitting normal January 31, 2025 4:00:00 AM [facility] January 31, 2025 9:08:00 PM [facility] [id number] on February 01, 2025 10:19:57 AM [facility] MARTA DUNAWAY PCP normal January 31, 2025 8:08:31 PM [facility] January 31, 2025 9:08:00 PM [facility] [id number] on February 01, 2025 10:19:57 AM [facility]
[2025-02-17 09:46] VITALS: BP 131/66; PULSE 78; RESP 15; TEMP 36.7; O2SAT 98; BMI 22.6
--- NOTE | 2025-02-17 09:49 | XR_ITS ---
PROCEDURE INFORMATION: Exam: XR Left Elbow Exam date and time: 02/17/2025 10:27 AM Age: 29 years old Clinical indication: Injury or trauma; Fall; Blunt trauma (contusions or hematomas); Elbow; Left TECHNIQUE: Imaging protocol: Radiologic exam of the left elbow. Views: 3 or more views. Total images: 3 COMPARISON: CR XR HUMERUS LT 02/17/2025 10:25 AM FINDINGS: Bones/joints: No evidence of acute fracture or dislocation. Soft tissues: Soft tissues are within normal limits. IMPRESSION: No evidence of acute fracture or dislocation.
--- NOTE | 2025-02-17 09:49 | XR_ITS ---
PROCEDURE INFORMATION: Exam: XR Left Forearm Exam date and time: 02/17/2025 10:28 AM Age: 29 years old Clinical indication: Injury or trauma; Fall; Blunt trauma (contusions or hematomas); Arm, lower; Left TECHNIQUE: Imaging protocol: Radiologic exam of the left forearm. Views: 2 views. Total images: 2 COMPARISON: CR XR ELBOW LT MIN 3V 02/17/2025 10:27 AM FINDINGS: Bones/joints: Slight medial bowing of the distal ulna present which may be consistent with a fracture. Soft tissues: Soft tissues are within normal limits. IMPRESSION: Slight medial bowing of the distal ulna present which may be consistent with a fracture. Conservative treatment and short-term follow-up recommended.
--- NOTE | 2025-02-17 09:49 | XR_ITS ---
PROCEDURE INFORMATION: Exam: XR Left Humerus Exam date and time: 02/17/2025 10:25 AM Age: 29 years old Clinical indication: Injury or trauma; Fall; Blunt trauma (contusions or hematomas); Arm, upper; Left TECHNIQUE: Imaging protocol: Radiologic exam of the left humerus. Views: 2 or more views. Total images: 1 COMPARISON: CR XR CERVICAL SPINE 3V 09/16/2022 2:41 PM FINDINGS: Bones/joints: No evidence of acute fracture or dislocation. Soft tissues: Soft tissues are within normal limits. IMPRESSION: No evidence of acute fracture or dislocation.
--- OUTSIDE RECORDS SUMMARY | 2025-02-17 09:56 | XMS_ITS | Encounter Summary ---
Author Organization [facility] Address [address] [place] [address] Care Team Providers Care Line Builder Name Role Phone Renetta Bedoya APRN Primary Care Provi sarath Encounter Details Date Type Department Care Team (Late Contact Info) Description 11/24/2024 Results Follow-Up [facility] [place] [address] Justice Lee MD [address] [place] [address] Social History Tobacco Use Types Packs/Day Years Used Date Smoking Tobacco: Never Smokeless Tobacco: Never Alcohol Use Standard Drinks/Week Comments Never 0 (1 standard drink = 0.6 oz pur e alcohol) Comments No Sex and Gender Information Value Date Recorded Sex Assigned at Female 09/19/2024 2:57 PM EDT Legal Sex Female 2:56 PM EDT Gender Identity Female 09/19/2024 2:57 PM EDT Sexual Orientation Not on file documented as of this encounter Plan of Treatment Upcoming Encounters Date Type Department Care Team (Late Contact Info) Description 05/29/2025 2:00 PM EST Ancillary Procedure [facility] [place] [address] 05/29/2025 2:20 PM EST Office Visit [facility] [place] [address] Justice Lee MD [address] [place] [address] documented as of this encounter Visit Diagnoses Not on filedocumented in this encounter Care Teams Line Builder Relationship Specialty Start Date End Date Renetta Bedoya APRN [address] [facility] [place] [address] PCP - General Nurse Practitioner 09/26/24 documented as of this encounter
--- OUTSIDE RECORDS SUMMARY | 2025-02-17 09:56 | XMS_ITS | Encounter Summary ---
Author Organization [facility] Address [address] [place] [address] Care Team Providers Care Electrical And Radio Mechanic Name Role Phone Renetta Bedoya APRN Primary Care Provi sarath Encounter Details Date Type Department Care Team (Late Contact Info) Description 09/27/2024 Results Follow-Up [facility] [place] [address] Justice Lee MD [address] [place] [address] Social History Tobacco Use Types Packs/Day Years [...] Description 05/29/2025 2:00 PM EST Ancillary Procedure [facility] [place] [address] 05/29/2025 2:20 PM EST Office Visit [facility] [place] [address] Justice Lee MD [address] [place] [address] documented as of this encounter Visit Diagnoses Not on filedocumented in this encounter Care Teams Electrical And Radio Mechanic Relationship Specialty Start Date End Date Renetta Bedoya APRN [address] [facility] [place] [address] PCP - General Nurse Practitioner 09/26/24 documented as of this encounter
--- OUTSIDE RECORDS SUMMARY | 2025-02-17 09:57 | XMS_ITS | Data Portability ---
Author Organization [employer] [facility] Address [address] [place] [address] Assessment Encounter Date Assessment Date Assessment LastModified by Organization Details LastModified Time 06/12/2024 06/12/2024 #Pain/bleeding -VSS, afebrile -Exam benign -ED precautions -Vaginitis swab sent -Advised pelvic rest x 2 weeks given recent LEEP/issues related to intercourse; does not appear to be infected based on exam, will allow additional time for healing, advised patient at least 4 weeks prior to resuming intercourse -Pap ASCUS HPV+, colpo CIN2, LEEP JEANNE 1 with negative margins; per ASCCP guidelines after LEEP, would recommend pap/HPV and colpo at 6 and 12 months -Discussed gardasil vaccines, counseled on use as part of treatment given biopsy JEANNE 2; does not smoke RTC as scheduled, will call with results. Pt verbalized understanding, and all questions addressed. [email or web address] Not available 06/12/2024 10:32:03 07/17/2024 07/17/2024 #HMB/Gardasil -VSS, afebrile -Exam as noted -ED precautions -Advised LEEP bed well healed, I do not think bleeding is related to LEEP at this time -TVUS next visit -1st gardasil today, discussed series -Advised we may need to consider alternative control at next visit if US wnl given persistent bleeding, may need to discuss options with estrogen RTC 2 weeks for scan/fu, sooner prn. Pt verbalized understanding, and all questions addressed. [email or web address] Not available 07/17/2024 17:34:43 08/01/2024 08/01/2024 #HMB -VSS, afebrile -Exam benign -ED precautions -UPT pending -Switch slynd to astrid, will try to avoid estrogen containing given migraines, does not sound as though she has aura. [facility] cat 1 POP. Counseled on switching pills, need for back up for at least 1 week and ideally 1 month given not on cycle, risk of breakthrough/u npredictable bleeding. -US notes multiple follicles bilateral, likely PCO in appearance -Fasting labs at next visit RTC 2 mo, sooner prn. Pt verbalized understanding, and all questions addressed. [email or web address] Not available 08/01/2024 09:38:48 08/07/2024 08/07/2024 #HMB -VSS, afebrile -Exam benign -ED Precautions -Pt reports increasing bleeding that she is unable to tolerate on new POP as well as provera; will do trial of estrogen containing ANTONINA given that migraines w/o aura reported. She understands r/b/a and wishes to proceed forward. [facility] cat 2 RTC 2 mo, sooner prn. Pt to call with updates in 2-3 days. Pt verbalized understanding, and all questions addressed. [email or web address] Not available 08/07/2024 15:06:10 Plan of Treatment Reminders Order Date Submit Date Provider Last Modified By Organization Details Last Modified Time Details Appointments ANNUAL EXAM 2025 01:00P M Bernarda Lopez II, MD Not available Not available Not available Lab test, urine 2024 025 [facility], [address] [place] [address], [address], [place], [address], 08/01/2024 09:40:30 vaginal pathogens panel, LEBRON+probe , vaginal fluid 2024 025 [facility], [address] [place] [address], [place], [address], 06/14/2024 07:07:36 Referral None recorded. Procedures None recorded. Surgeries None recorded. Imaging US, transvagi nal 2024 025 [facility], [address], [address], [place], [address], 07/18/2024 10:02:28 Medication Orders Loestrin Fe 05/01 (28-Day) 1 mg-20 mcg (21)/75 mg (7) tablet 2024 025 [facility], [facility] [place], [address], 08/08/2024 14:27:14 Astrid 0.35 mg tablet 2024 025 [facility], [address] [place], [address], 08/01/2024 09:41:15 Patient TargetsNo targets recorded. Patient InstructionsNo instructions recorded. Reason for Referral None Reported. Results Created Date Observation Date Name Description Value Unit Range Abnormal Flag Note LastModifiedBy Organization Detail LastModifiedTime 05/18/1905/23/2024 PATHO LOGY REPOR T . Commen t Mater ial submi tted: . cervi x - CERVI MARCIE LEEP Not Available [facility] [address] [facility], [place], [address], 05/23/2024 10:07:49 05/18/1905/23/2024 PATHO LOGY REPOR T . Commen t Diagn osis: CERVI MARCIE LEEP: LOW-G RADE SQUAM OUS INTRA EPITH ELIAL LESIO N (JEANNE 1). CHRON IC CERVI CITIS . THE DYSPL ASTIC PROCE SS DOES NOT EXTEN D TO THE EXOCE RVICA L OR ENDOC ERVIC AL FEDER[place] NS OF EXCIS ION. DXB 05/23 0945 Local Not Available [facility] [address] [place], [address], 05/23/2024 10:07:49 05/18/1905/23/2024 PATHO LOGY REPOR T . Commen t Sukumar aguirre d: . Alicja Rocha MD, Patho logis t Not Available [facility] [address] [place], [address], 05/23/2024 10:07:49 05/18/1905/23/2024 PATHO LOGY REPOR T . Commen t Gross descr iptio n: . 1 Conta iner, forma marshall-f illed , label ed with patie nt ident ifica tion. CERVI MARCIE LEEP: RECEI MAEGAN IS AN IRREG ULAR FRAGM ENT SALMERON TISSU E MEASU RING 2.1 CM IN GREAT EST DIAME TER AND 1.5 CM IN DEPTH . THE SPECI MEN IS NOT ORIEN RAHEEL. THE TRANS FORMA TION ZONE IS EVIDE NT. THE EXTER NAL OS IS SLIT- LIKE. THE SPECI MEN IS INKED , RADIA LLY SECTI ONED AND SUBMI TTED ENTIR WINSOME IN CASSE TTE(S ) A1-A4 . SERGE/K YE 05/19 1052 Local Not Available [facility] [address] [facility], [place], [address], 05/23/2024 10:07:49 05/18/1905/23/2024 PATHO LOGY REPOR T . Commen t Patho logis t provi ded ICD-1 0: N72, N87.0 Not Available [facility] [address] [facility], [place], [address], 05/23/2024 10:07:49 05/18/19 25 05/23/2024 PATHO IWONA Gonsalez t CPT . 24181 1 Not Available [facility] [address] [facility], [place], [address], 05/23/2024 10:07:49 06/13/19 25 06/14/2024 NUSWA B VAGIN ITIS PLUS (VG+) atopobium vaginae Modera te - 1 score Not Available [facility] [address] [facility], [place], [address], 06/14/2024 07:07:36 06/13/19 25 06/14/2024 NUSWA B VAGIN ITIS PLUS (VG+) bvab 2 Low - 0 score Not Available [facility] [address] [facility], [place], [address], 06/14/2024 07:07:36 06/13/19 25 06/14/2024 NUSWA B VAGIN ITIS PLUS (VG+) megasphaera 1 Low - 0 score Calcu late total score by lucina g the 3 indiv idual bacte rial vagin osis (BV) marke r score s toget her. Total score is inter prete d as follo ws: Total score 0-1: Indic ates the absen ce of BV. Total score 2: Indet ermin ate for BV. Addit ional clini marcie data shoul d be evalu ated to estab benjie a diagn osis. Total score 3-6: Indic ates the prese nce of BV. Not Available [facility] [address] [facility], [place], [address], 06/14/2024 07:07:36 06/13/19 25 06/14/2024 NUSWA B VAGIN ITIS PLUS (VG+) linda albicans, LEBRON Negati ve negati ve Not Available [facility] [address] [facility], [place], [address], 06/14/2024 07:07:36 06/13/19 25 06/14/2024 NUA B VAGIN ITIS PLUS (VG+) linda glabrata, LEBRON Negati ve negati ve Not Available [facility] [address] [facility], [place], [address], 06/14/2024 07:07:36 06/13/19 25 06/14/2024 NUA B VAGIN ITIS PLUS (VG+) trich vag by LEBRON Negati ve negati ve Not Available [facility] [address] [facility], [place], [address], 06/14/2024 07:07:36 06/13/19 25 06/14/2024 NUA B VAGIN ITIS PLUS (VG+) chlamydia trachomatis, LEBRON Negati ve negati ve Not Available [facility] [address] [facility], [place], [address], 06/14/2024 07:07:36 06/13/19 25 06/14/2024 NUA B VAGIN ITIS PLUS (VG+) neisseria gonorrhoeae, LEBRON Negati ve negati ve Not Available [facility] [address] [facility], [place], [address], 06/14/2024 07:07:36 08/02/19 25 08/01/2024 pregn milvia test, urine HCG negati ve Not Available [address], [place], [address], 08/01/2024 09:38:51 07/18/19 25 07/21/2024 US, trans vagin al No observ ation record ed. [email or web address] [address], [place], [address], 07/21/2024 17:31:27 08/02/19 25 08/01/2024 US, trans vagin al No observ ation record ed. [email or web address] [facility] - [address], [place], [address], 08/02/2024 11:55:38 Result Notes None recorded. Problems Name Problem SNOMED Code Status Onset Date Resolution Date Notes Provider Name and Address Organization Details Recorded Time Contrace ption care educatio n Completed 201804/28/2018 GAGAN COLON [employer] 2 14:24:13 Contrace ption care educatio n Completed 201807/08/2020 GAGAN COLON [employer] 14:24:13 Irregula r periods 21021074 Active 2018 Not Available [facility] 2 21:24:27 Normal pregnanc y in multigra [place] [id number] 4106 Completed 201901/09/2020 Problem Code: Z34.82; Problem Code Type: ICD-10; GAGAN COLON [employer] 14:24:13 Sampling of vagina for Papanico laou smear Completed 201901/13/2022 Problem Code: Z01.419; Problem Code Type: ICD-10; GAGAN COLON [employer] 2 14:24:13 Cystitis of pregnanc y 026012245 Completed 201907/08/2020 Problem Code: O23.12; Problem Code Type: ICD-10; GAGAN COLON [employer] 14:24:13 Cystitis of pregnanc y 443800462 Completed 201901/13/2022 Problem Code: O23.13; Problem Code Type: ICD-10; GAGAN COLON null, [employer] 2 14:24:13 Normal pregnanc y in [place] [id number] [facility] Completed 201901/09/2020 Problem Code: Z34.83; Problem Code Type: ICD-10; GAGAN osorio, [employer] 2 14:24:13 [facility] [id number] 4106 Completed 201901/09/2020 Problem Code: Z34.83; Problem Code Type: ICD-10; GAGAN osorio, [employer] 14:24:13 [facility] [place] [phone] [facility] Completed 201901/09/2020 Problem Code: Z34.83; Problem Code Type: ICD-10; GAGAN osorio, [employer] 2 14:24:13 [facility] [place] [id number] [facility] Completed 201901/13/2022 Problem Code: Z34.83; Problem Code Type: ICD-10; GAGAN COLON null, [employer] 2 14:24:13 [facility] [place] [id number] [facility] Completed 201901/09/2020 Problem Code: Z34.83; Problem Code Type: ICD-10; GAGAN osorio, [employer] 2 14:24:13 [facility] [place] [phone] [facility] Completed 201901/09/2020 Problem Code: Z34.83; Problem Code Type: ICD-10; GAGAN osorio, [employer] 14:24:13 Postnata l care provider [id number] Completed 201907/08/2020 Not Available [facility] 21:24:29 Sampling of vagina for Papanico laou smear Completed 201907/08/2020 Problem Code: Z01.419; Problem Code Type: ICD-10; GAGAN COLON [employer] 2 14:24:13 Insertio n of intraute rine contrace ptive device Completed 201907/08/2020 Problem Code: Z30.430; Problem Code Type: ICD-10; Not Available [facility] 2 21:24:28 Allergic reaction 057044470 Completed 202001/13/2022 GAGANROSY COLON [facility] 2 14:24:13 Excessiv e menstrua tion with irregula r cycle 465294783 Completed 202001/13/2022 GAGAN COLON [facility] 2 14:24:13 Acute pharyngi tis 332719343 Completed 202001/13/2022 GAGANROSY COLON [facility] 2 14:24:13 Headache 89577182 Completed 202001/13/2022 Problem Code: R51; Problem Code Type: ICD-10; GAGAN COLON [facility] 2 14:24:13 Dyspareu honorio 25946848 Completed 202101/13/2022 Problem Code: N94.1; Problem Code Type: ICD-10; GAGAN COLON [employer] 2 14:24:13 Oligomen orrhea 71884672 Completed 202101/13/2022 GAGANROSY COLON [facility] 2 14:24:13 Abnormal uterine and vaginal bleeding , unspecif ied Completed 202101/13/2022 GAGANROSY COLON [facility] 2 14:24:13 Replacem ent of intraute rine contrace ptive device Completed 202101/13/2022 Problem Code: Z30.433; Problem Code Type: ICD-10; GAGAN osorio, [employer] 2 14:24:13 Body mass index 20-24 - normal 466009379 Completed 202101/13/2022 GAGAN osorio, [employer] 2 14:24:13 Pelvic and perineal pain 581190299 Completed 202101/13/2022 Problem Code: R10.2; Problem Code Type: ICD-10; GAGAN osorio, [employer] 14:24:13 Contrace ption care educatio n Completed 202101/13/2022 GAGAN osorio, [employer] 14:24:13 Removal of intraute rine device Completed 202101/13/2022 Problem Code: Z30.432; Problem Code Type: ICD-10; GAGAN osorio, [employer] 2 14:24:13 Vaginola bial hernia Completed 202101/13/2022 Problem Code: N89.8; Problem Code Type: ICD-10; GAGAN osorio, [employer] 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 5 14:22:56 Cervical intraepi thelial neoplasi a grade 2 121371328 Active 2024 Analy Lopez II, MD [address] [place] [address], [address] , [employer] 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 5 11:39:12 Vaginal discharg e 500792577 Active 2024 Blanca Vo DO [address] [place] [address], [address] , [employer] 5 10:14:39 Abnormal uterine bleeding 21952011472 100 Active 2024 Analy Lopez II, MD [address] [place], [place] [address] , [employer] 5 10:36:34 Menorrha yenifer 157045018 Active 2024 Blanca Vo DO [address] [place] [address], [address] , [employer] 5 17:32:04 Problem Notes None recorded. Procedures Surgical History Date Name Laterality Status Provider Name and Address Organization Details Recorded Time 03/27/20 24 Date of Last Pap Smear completed Obi Johnson [employer]. 04/26/2024 14:04:47 Cholecystectomy completed JACINTA RAI [employer]. 05/13/2023 11:15:07 Imaging Results None recorded. Procedure Notes None recorded. Medical Equipment None Reported. Allergies Allergen ID Allergen Name Allergen Category Reaction Reaction Severity Criticality Documentation Date Start Date Code Code System Note Provider Name and Address Organization Details Recorded Time 80024 penicilli n V potassium medicatio n Not available Not available Not available 12/16/2021 66140 5 RxNorm Not Available [facility] 2 22:56:09 39180 erythromy jeanne medicatio n Not available Not available Not available 12/16/2021 4053 RxNorm Not Available [facility] 2 22:56:10 44540 levonorge strel medicatio n Not available Not available Not available 12/16/2021 6373 RxNorm pain JACINTA RAI [facility] [employer] 4 11:10:31 Medications Name Sig Start Date Stop Date Status Note LastModified by Organization Details LastModified Time cyclobenzap rine 10 mg tablet take 1 tablet (10 mg) by oral route 2 times per day prn 02/07 completed Not Available Not Available Not Available medroxyprog esterone 10 mg tablet TAKE 1 TABLET BY MOUTH EVERY DAY X 10 DAYS UNTIL VAGINAL BLEEDING STOPS active Not Available Not Available No t Available buspirone 5 mg tablet active Not Available Not Available No t Available levonorgest rel 21 mcg/24 hr (up to 8 years) 52 mg intrauterin e device 05/22 completed Not Available Not Available Not Available norgestimat e 0.25 mg-ethinyl estradiol 0.035 mg tablet take 2 pills a day until her bleeding stops and then one a day. Do not take the blanks after the first pack. 05/22 completed Not Available Not Available Not Available venlafaxine ER 37.5 mg capsule,ext ended release 24 hr active Not Available Not Available Not Available Aviane 0.1 mg-20 mcg tablet take 1 tablet by oral route once daily 04/16 completed Not Available Not Available Not Available Apri 0.15 mg-0.03 mg tablet take 1 tablet by oral route once daily 10/21 completed Not Available Not Available Not Available Vitamin C 500 mg tablet active Not Available Not Available Not Available trazodone 50 mg tablet 07/03 completed Not Available Not Available Not Available cetirizine 10 mg tablet 05/13 completed Not Available Not Available Not Available IBU 800 mg tablet TAKE 1 TABLET BY MOUTH 4 TIMES DAILY WITH FOOD 05/13 completed Not Available Not Available Not Available Retin-A 0.025 % topical cream active Not Available Not Available Not Available fluconazole 150 mg tablet TAKE ONE TABLET BY MOUTH TODAY, THEN ONE TABLET BY MOUTH IN THREE DAYS 03/27 completed Not Available Not Available Not Available valacyclovi r 1 gram tablet active Not Available Not Available Not Available hydrocodone 5 mg-acetamin ophen 325 mg tablet TAKE 1 TABLET ORAL ROUTE EVERY 6 HOURS NEEDED 05/13 completed Not Available Not Available Not Available senna 8.6 mg tablet active Not Available Not Available No t Available meloxicam 15 mg tablet 03/27 completed Not Available Not Available Not Available phenazopyri dine 200 mg tablet 05/13 completed Not Available Not Available Not Available ondansetron HCl 4 mg tablet 05/13 completed Not Available Not Available Not Available prednisone 20 mg tablet take 1 tablet (20 mg) by oral route 3 times per day x3 days 08/29 completed Not Available Not Available Not Available rizatriptan 10 mg tablet 05/22 completed Not Available Not Available Not Available hydroxyzine pamoate 50 mg capsule 05/13 completed Not Available Not Available Not Available penicillin V potassium 500 mg tablet take 1 tablet (500 mg) by oral route 2 times per day for 7 days 10/29 completed Not Available Not Available Not Available metronidazo le 500 mg tablet take 1 tablet (500 mg) by oral route 2 times per day 05/13 completed Not Available Not Available Not Available valacyclovi r 500 mg tablet 05/13 completed Not Available Not Available Not Available ciprofloxac in 500 mg tablet TAKE 1 TABLET BY MOUTH TWICE DAILY 05/22 completed Not Available Not Available Not Available sulfamethox azole 800 mg-trimetho prim 160 mg tablet 05/13 completed Not Available Not Available Not Available ondansetron 8 mg disintegrat ing tablet 05/13 completed Not Available Not Available Not Available ketorolac 10 mg tablet 05/22 completed Not Available Not Available Not Available prednisone 10 mg tablets in a dose pack 07/03 completed Not Available Not Available Not Available ofloxacin 0.3 % ear drops INSTILL 10 DROPS IN RIGHT EAR EVERY DAY FOR 7 DAYS active Not Available Not Available No t Available methenamine hippurate 1 gram tablet active Not Available Not Available Not Available amoxicillin 875 mg tablet TAKE 1 TABLET BY MOUTH TWICE DAILY active Not Available Not Available No t Available famotidine 20 mg tablet 05/13 completed Not Available Not Available Not Available methocarbam ol 750 mg tablet 07/03 completed Not Available Not Available Not Available hydrocodone 7.5 mg-acetamin ophen 325 mg tablet TAKE 1 TABLET BY MOUTH EVERY 4 TO 6 HOURS NEEDED FOR PAIN 04/16 completed Not Available Not Available Not Available cephalexin 500 mg capsule TAKE 1 CAPSULE BY MOUTH THREE TIMES DAILY FOR 7 DAYS 03/27 completed Not Available Not Available Not Available oseltamivir 75 mg capsule TAKE 1 CAPSULE BY MOUTH EVERY 12 HOURS FOR 5 DAYS 03/27 completed Not Available Not Available Not Available clotrimazol e-betametha sone 1 %-0.05 % topical cream 05/13 completed Not Available Not Available Not Available promethazin e 25 mg tablet take 1 tablet (25 mg) by oral route 2 times per day prn for nausea 02/07 completed Not Available Not Available Not Available docusate sodium 100 mg capsule active Not Available Not Available N ot Available sertraline 25 mg tablet 05/13 completed Not Available Not Available Not Available omeprazole 20 mg capsule,del ayed release active Not Available Not Available Not Available hydroxyzine HCl 25 mg tablet 05/22 completed Not Available Not Available Not Available mupirocin 2 % topical ointment active Not Available Not Available Not Available cefuroxime axetil 500 mg tablet 07/03 completed Not Available Not Available Not Available hydroxyzine HCl 10 mg tablet 05/13 completed Not Available Not Available Not Available clobetasol 0.05 % scalp solution 07/03 completed Not Available Not Available Not Available ondansetron 4 mg disintegrat ing tablet 05/13 completed Not Available Not Available Not Available cefdinir 300 mg capsule 05/13 completed Not Available Not Available Not Available fluoxetine 20 mg capsule active Not Available Not Available Not Available sertraline 50 mg tablet 05/13 completed Not Available Not Available Not Available escitalopra m 10 mg tablet 05/22 completed Not Available Not Available Not Available eletriptan 40 mg tablet 03/27 completed Not Available Not Available Not Available escitalopra m 5 mg tablet 05/13 completed Not Available Not Available Not Available topiramate 50 mg tablet active Not Available Not Available Not Available nitrofurant oin monohydrate /macrocryst als 100 mg capsule take 1 capsule (100 mg) by oral route 2 times per day with food for 7 days 05/13 completed Not Available Not Available Not Available tranexamic acid 650 mg tablet take 2 tablets (1,300 mg) by oral route 3 times per day during menses 05/22 completed Not Available Not Available Not Available Malu 0.35 mg tablet TAKE ONE TABLET BY MOUTH DAILY active Not Available Not Available No t Available Lo Loestrin Fe 1 mg-10 mcg (24)/10 mcg (2) tablet Take 1 tablet every day by oral route. 2024 active Not Available Not Available Not Avai lable Nexplanon 68 mg subdermal implant 01/02 completed Not Available Not Available Not Available Blisovi Fe 05/01 (28) 1 mg-20 mcg (21)/75 mg (7) tablet TAKE ONE TABLET BY MOUTH EVERY DAY active Not Available Not Available No t Available Vraylar 1.5 mg capsule 05/22 completed Not Available Not Available Not Available Emgality Pen 120 mg/mL subcutaneou s pen injector active Not Available Not Available Not Available Slynd 4 mg (28) tablet Take 1 tablet every day by oral route. active Not Available Not Available No t Available Ubrelvy 100 mg tablet active Not Available Not Available No t Available Phexxi 1.8 %-1 %-0.4 % vaginal gel insert 1 applicato rful by vaginal route once within 1 hour before each act of vaginal intercour se 03/27 completed Not Available Not Available Not Available Qulipta 60 mg tablet active Not Available Not Available No t Available Zavzpret 10 mg/actuatio n nasal spray active Not Available Not Available Not Available Vitals Date Recorded Body height Body mass index (BMI) Body weight Heart rate Oxygen saturation Oxygen saturation in Arterial blood by Pulse oximetry Systolic And Diastolic Provider Name and Address Organization Details Last Updated DateTime 5 165.1 cm 23.9 kg/m2 97400.5 8 g 69 /min 100 % 100 % 130/85 mm[Hg] Obi Johnson [employer] 5 09:20:36 Date Recorded Body height Body mass index (BMI) Body weight Heart rate Oxygen saturation Oxygen saturation in Arterial blood by Pulse oximetry Systolic And Diastolic Provider Name and Address Organization Details Last Updated DateTime 5 165.1 cm 23.9 kg/m2 05155.1 5 g 75 /min 99 % 99 % 139/95 mm[Hg] Radha Gill [employer] 5 10:17:04 Date Recorded Body height Body mass index (BMI) Body weight Heart rate Oxygen saturation Oxygen saturation in Arterial blood by Pulse oximetry Systolic And Diastolic Provider Name and Address Organization Details Last Updated DateTime 5 165.1 cm 24.4 kg/m2 44943.3 6 g 79 /min 100 % 100 % 128/83 mm[Hg] [employer] 5 17:19:24 Date Recorded Body height Body mass index (BMI) Body weight Heart rate Oxygen saturation Oxygen saturation in Arterial blood by Pulse oximetry Systolic And Diastolic Provider Name and Address Organization Details Last Updated DateTime 5 165.1 cm 23.9 kg/m2 31476.8 6 g 77 /min 99 % 99 % 126/81 mm[Hg] Private Practice 5 09:01:22 Date Recorded Body height Body mass index (BMI) Body weight Heart rate Oxygen saturation Oxygen saturation in Arterial blood by Pulse oximetry Systolic And Diastolic Provider Name and Address Organization Details Last Updated DateTime 5 165.1 cm 24 kg/m2 49686.3 g 87 /min 100 % 100 % 128/86 mm[Hg] Private Practice 5 13:07:42 Social History Question Answer Notes LastModified by Organizat ion Details LastModified Time Tobacco Smoking Status Never Smoker GAGAN osorio, [employer] 01/13/2022 14:24:58 Do You Have An Advance Directive? No [email or web address] Information n ot available 01/13/2022 Do You Wear A Helmet When Biking? Yes Information not available 05/22/2024 Are You Blind Or Do You Have Difficulty Seeing? No [email or web address] Information n ot available 01/13/2022 In The 14 Days Before Symptom Onset, Have You Had Close Contact With A Laboratory-confirm ed COVID-19 While That Case Was Ill? No [email or web address] Information n ot available 04/16/2022 In The 14 Days Before Symptom Onset, Have You Had Close Contact With A Person Who Is Under Investigation For COVID-19 While That Person Was Ill? No [email or web address] Information not available 04/16/2022 Have You Been To An Area Known To Be High Risk For COVID-19? No [email or web address] Information not available 04/16/2022 Are You Deaf Or Do You Have Serious Difficulty Hearing? No [email or web address] Information not available 01/13/2022 What Type Of Diet Are You Following? REGULAR Information n ot available 05/22/2024 Do You Have A Medical Power Of Locket Maker? No [email or web address] Information not available 01/13/2022 What Was The Date Of Your Most Recent Tobacco Screening? 10/02/2024 Information not available 10/02/2024 What Is Your Relationship Status? Single [email or web address] Information not available 01/13/2022 Do You Use Your Seat Belt Or Car Seat Routinely? Yes Information not available 05/22/2024 Do You Participate In Social Media? Yes Information not available 05/22/2024 Have You Recently Traveled Abroad? No [email or web address] Information not available 04/16/2022 Do You Have Difficulty Walking Or Climbing Stairs? No [email or web address] Information not available 01/13/2022 Do You Have Any Dietary Restrictions? No Information not available 05/22/2024 Sex: Female Functional Status Question Answer Note LastModified by [email or web address] Details LastModified Time Do you use any illicit or recreational drugs? No Information not available 05/13/2023 What is your level of alcohol consumption? None [email or web address] Information not available 01/13/2022 Do you have transportation difficulties? No [email or web address] Information not available 01/13/2022 Are you able to walk independently without assistance or assistive devices? [email or web address] Information not available 01/13/2022 Do you have difficulty doing errands alone? No [email or web address] Information not available 01/13/2022 Are you able to care for yourself independently? Yes [email or web address] Information not available 01/13/2022 Do you have difficulty dressing, bathing, grooming, or toileting? No [email or web address] Information not available 01/13/2022 Mental Status Question Answer Note LastModified by [email or web address] ion Details LastModified Time Do you feel stressed (tense, restless, nervous, or anxious, or unable to sleep at night)? [id number] Information not available 05/22/2024 Do you have difficulty concentrating, remembering or making decisions? No [email or web address] Information no t available 01/13/2022 Family History Relationship Description Onset Age of this Age Resolved Age Notes LastModified by Organization Details LastModified Time Mother Diabetes mellitus [email or web address] Not available 2023 11:14:15 Mother Hypertensive disorder [email or web address] Not available 2023 11:14:23 Maternal Grandmother Malignant neoplastic disease [email or web address] Not available 2023 11:14:36 Medical History Condition Response Anxiety Disorder Y Hospitalizations N Allergies (Food, seasonal, environmental ) Y Emergency room visit since last appointm ent. N Headaches Y Gynecological History Statement/Question Response Abnormal Pap Y Sexually Active? N Menses Monthly Y STIs/STDs Y Date of Last Pap Smear 03/27/2024 Current Control Method Abstinence Most Recent Mammogram LMP Approximate Obstetrics History GPAL:G 2 P 2 0 0 2 Type Value Full Term 2 Living 2 Total 2 Immunizations Vaccine Type Date Status Note Provider Nam e and Address Organization Details Recorded Time HPV9 5 completed Haylee osorio, [employer] 07/18/2024 08:09:25 Hib-Hep B 9 completed GAGAN osorio, [employer] 04/16/2022 15:50:02 DTaP, unspecified formulation 9 completed GAGAN osorio, [employer] 04/16/2022 15:50:02 Hib, unspecified formulation 8 completed GAGAN COLON null, [employer] 04/16/2022 15:50:02 HPV, quadrivalent 0 completed GAGAN COLON [employer] 04/16/2022 15:50:02 Hib, unspecified formulation 8 completed GAGAN osorio [employer] 04/16/2022 15:50:02 HPV, quadrivalent 1 completed GAGAN COLON null, [employer]. 04/16/2022 15:50:02 MMR 2 completed GAGAN ISAIAH null, [employer] 04/16/2022 15:50:02 OPV, trivalent 8 completed GAGANROSY COLON null, [employer] 04/16/2022 15:50:02 Hib (PRP-OMP) 9 completed GAGAN ISAIAH null, [employer] 04/16/2022 15:50:02 DTaP, unspecified formulation 9 completed GAGAN ISAIAH null, [employer] 04/16/2022 15:50:02 OPV, trivalent 8 completed PassboxNER null, [employer] 04/16/2022 15:50:02 DTaP, unspecified formulation 2 completed PassboxNER null, [employer] 04/16/2022 15:50:02 DTaP, unspecified formulation 8 completed PassboxNER null, [employer] 04/16/2022 15:50:02 meningococcal MCV4, unspecified formulation 0 completed PassboxNER null, [employer] 04/16/2022 15:50:02 Tdap 0 completed GAGAN ISAIAH null, [employer] 04/16/2022 15:50:02 OPV, trivalent 9 completed GAGAN ISAIAH null, [employer] 04/16/2022 15:50:02 DTaP, unspecified formulation 8 completed PassboxNER null, [employer] 04/16/2022 15:50:02 Hep A, ped/adol, 2 dose 1 completed GAGAN ISAIAH null, [employer] 04/16/2022 15:50:02 HPV, quadrivalent 0 completed GAGAN ISAIAH null, [employer] 04/16/2022 15:50:02 varicella 9 completed GAGAN VELANER null, [employer] 04/16/2022 15:50:02 IPV 2 completed GAGAN COLON null, [employer] 04/16/2022 15:50:02 Hep B, adolescent or pediatric 8 completed GAGAN ISAIAH null, [employer] 04/16/2022 15:50:02 MMR 9 completed GAGAN COLON null, [employer] 04/16/2022 15:50:02 Influenza, split virus, quadrivalent, preservative 5 completed Haylee Timmons null, [employer] 06/23/2024 14:27:08 Tdap 4 completed Haylee Timmons [employer], [employer] 06/23/2024 14:27:08 Influenza, split virus, trivalent, PF 6 completed Haylee Shanelle [employer], [employer] 06/23/2024 14:27:08 Past Encounters Encounter ID Performer Location Encounter Start Date Encounter Closed Date Diagnosis/Indication Diagnosis SNOMED-CT Code Diagnosis ICD10 Code Diagnosis IMO Codes Diagnosis Note [id number] [place] [address] 01/13/2022 14:15:06 01/13/2022 14:34:10 Candidiasis of vagina 66721453 B37.31 Body mass index 20-24 - normal 127899459 Z68.22 [id number] Darcy Palumbo [place] [address] 0 04/16/2022 15:23:55 04/16/2022 16:43:49 Fatigue 23661246 R53.83 Hyperlipidemia 01443390 E78.5 Vitamin D deficiency 347 36956 E55.9 Vitamin B1 2 deficiency (non anemic) 58313855 E53.8 Headache 38935914 R51.9 Dizziness 147360290 R42 Body mass index 20-24 - normal 069939123 Z68.22 Iron defic iency anemia 54882840 D50.9 [id number] Carrillo Parrish CNM [address],[place] [address] 7 05/13/2023 10:59:03 05/13/2023 12:32:57 Irregular periods 31616628 N92.6 3 month samples given of slynd to see if this will regulate and if so will Rx. Pt will call in 3 mo for f/u on meds. [id number] Analy Lopez II, MD [place] [address] 03/27/2024 15:32:19 03/28/2024 12:45:34 Gynecologic examination 51972586 Z01.921 [id number] Analy Lopez II, MD [place] [address] 04/26/2024 13:50:54 04/26/2024 14:48:55 Cervical intraepithelial neoplasia grade 1 641041066 N87.0 If This is mild for last follow-up in 1 year. [id number] Analy Lopez II, MD [place] [address] 05/18/2024 14:38:44 05/18/2024 14:40:16 Cervical intraepithelial neoplasia grade 2 714420579 N87.1 [id number] Analy Lopez II, MD [place] [address] 05/22/2024 10:53:41 05/22/2024 11:49:41 Postoperative hemorrhage 195614775 N99.820 Chemical cautery of lesion [id number] Blanca Vo DO [address],[place] [address] 06/12/2024 09:01:47 06/12/2024 10:08:21 Vaginal discharge 882959536 N89.8 History of loop electrosurgical excision procedure 2093044502 9102 Z98.612 [id number] Analy Lopez II, MD [address],[place] [id number] 07/03/2024 09:46:31 07/03/2024 11:11:50 Abnormal uterine bleeding 1051792951 9100 N93.9 I cauterized the small area that look like granulatio n tissue with silver nitrate. We will plan to follow-up in 1 week. If she is still having bleeding problems, we may need to work her up as an abnormal bleeding patient as opposed to a problem from her LEEP. [id number] Blanca Vo [address] [place] [id number] 07/17/2024 17:09:56 07/17/2024 17:37:18 Menorrhagia 620359020 N92.0 Administra tion of viral vaccine 98777257 Z23 [id number] Blanca Vo [address] [place] [id number] 08/01/2024 08:18:36 08/01/2024 09:42:57 Menorrhagia 346443983 N92.0 [id number] Blanca Vo [address] [place] [id number] 08/07/2024 12:59:59 08/07/2024 15:38:07 Menorrhagia 280637889 N92.0 Health Concerns Section Related Observation LastModified by Organization Detai ls LastModified Time None Recorded Concern Status LastModified by Organization Details LastModified Time None Recorded Advance Directives Directive N: Payers Insurance Date Sequence Insurance Name Policy Number Policy Gordon Covered Member ID Gordon Member ID Guarantor Name 08/15/2024 1 UNSPECIFIED REMIT PAYOR Lauren Mcneill 10/01/2024 1 [facility] (MEDICAID HMO) Lauren Mcneill [id number] Lauren Caalfield Notes Date Note Type Note Provider Name and Address Organization Details Recorded Time 06/12/2024 text/html ROS as noted in the HPI 28yo presents to discuss pain with intercourse and vaginal bleeding that has been happening randomly since LEEP in early May. States she is due for period soon. She has recently resumed sexual activity and noticed pain. She did not have this issue prior to LEEP. She does not smoke, and she has not had gardasil vaccines. Denies fever, chills, n/v/d, dysuria, vaginal discharge. Has bleeding randomly, not only isolated to during intercourse. States most recent episode started yesterday while she was at work. Blanca Vo DO [address] [place] [address], [phone], [employer]. 06/12/2024 10:32:26 07/03/2024 text/html She is here because of continued bleeding. She had a LEEP about a month ago. Pathology showed mild dysplasia with negative margins. She had a follow-up last week but says she continues to have heavy bleeding with a lot of cramping and pain. Prior to her LEEP she was having normal regular cycles. She uses Slynd and says that it had kept things normal and regular prior to the surgery. She says the bleeding is as heavy as a heavy menstrual day. It is inconsistent. Analy Lopez II, MD [address] [place], [address], [employer]. 07/03/2024 10:37:42 07/17/2024 text/html ROS as noted in the HPI 28yo presents for persistent heavy bleeding after LEEP. States she saw Dr. Lopez and he said there was an area of bleeding on cervix, used silver nitrate. She continues to have bleeding. She has been on slynd for a while. No changes to meds, hx, allergies. Denies fever, chills, n/v/d, dysuria, vaginal discharge. She would also like to get the gardasil injection series started today. Blanca Vo DO [address] [place], [address], [employer] 07/17/2024 17:35:05 08/01/2024 text/html ROS as noted in the HPI 28yo presents for f/u after US. States she is no longer bleeding. She is currently taking slynd. No changes to hx, meds, allergies. Denies fever, chills, n/v/d, dysuria, vaginal discharge. She has migraines and takes meds and an injection. Denies numbness, tingling, weakness. Has some notion that they are coming on at times. Blanca Vo DO [address] [place] [address], [phone], [employer] 08/01/2024 09:39:44 08/07/2024 text/html ROS as noted in the HPI 28yo presents to discuss ongoing heavy vaginal bleeding. States she switched control Wednesday of last week. Started having heavy bleeding on . She has been taking the provera every 4 hours, and bleeding is heavier. She has migraines, no aura reported. She is inquiring about hysterectomy. Denies fever, chills, n/v/d, dysuria. Has family with her today. Blanca Vo DO [address] [place] [address], [phone], [employer] 08/07/2024 15:06:37 OBGyn Episode Ob Episode Information Episode Created Date Number of Fetuses Patient Bloodtype Patient rh Status Prepregnancy Weight lbs Domestic Partner Domestic Partner Phone Father Name Promotions Specialist Status 08/02/19 25 1 DELETED Fetus Data First Name Last Name Admitted to NICU Weight (g) Sex Living Outcome Pediatric Complications Fetus ID Race Codes Race Delivery Type [id number] Dino Calculation Initial Dino Date Initial Exam Date Initial Exam Provider Initial Ultrasound Date Last Menstrual Period Date Ultra Sound Weeks Gestation 08/01/2024 0 Eighteen To Twenty Week Dino Update Ultra Sound Date Fundal Height At Umbil Quickening Date Ultra Sound Latest Weeks Gestation Final Dino Confirmed By Final Dino Confirmed Date Final Dino Date Ultra Sound Latest Days Gestation 0 0 Menstrual History Last Menstrual Date Menses Monthly On Bcp Conception Prior Menses Frequency Hcg Plus Date Menarche Onset Age Delivery Information Delivery Date Delivery Type Labor Anesthesia Weeks Gestation Incision Type Labor Labor Length Hrs Delivered By Post Complications Tubal Sterilization Discharge Date Comments Discharge Information Feeding Method Contraceptive Method Maternal HG B and HCT Levels
--- OUTSIDE RECORDS SUMMARY | 2025-02-17 09:57 | XMS_ITS | Clinical Summary ---
Author Organization [facility] Address [address] [place] [address] Care Team Providers Care Asp Net Software Developer Name Role Phone Renetta Bedoya DARRIN Primary Care Provi sarath Allergies Active Allergy Reactions Criticality Noted Date Comments Erythromycin Unknown - Low Severi ty,Other (See Comments),Rash Low 09/26/2024 Medications Qulipta 60 MG tablet TAKE 1 TABLET EVERY DAY BY ORAL ROUTE FOR 90 DAYS, FOR MIGRAINES PREVENTION. 5 Active Emgality 120 MG/ML auto-injector pen Inject by subcutaneous route for 28 days. Active vitamin C (ASCORBIC ACID) 500 MG tablet 5 Active methenamine (HIPREX) 1 g tablet Take 1 tablet by mouth Daily. Active Tranexamic Acid (Lysteda) 650 MG tabletIndicatio ns:Abnormal uterine bleeding (AUB) 2 tablets by mouth 3 times daily for 5 days. Repeat monthly with your menstrual cycle. 30 tablet 12 5 Active Active Problems Problem Noted Date Diagnosed Date Abnormal uterine bleeding (AUB) 11/21/2024 Assessment & Plan (11/21/2024 3:01 PM EDT): Chronic. Not improving despite Provera. Counseled for options for management of abnormal uterine bleeding to include observation, oral contraceptive pills, progestins, levonorgestrel IUD, and, if appropriate, surgical options including dilation and curettage, endometrial ablation or hysterectomy. Discussed a general stepwise approach to management. Risk benefits and alternatives for each option specific to the patient condition were reviewed. Questions were answered and patient verbalized understanding. The patient elected for TXA as she desires . Likely heavy bleeding due to intermittent anovulation in the setting of PCOS. Secondary amenorrhea 09/26/2024 Cervical dysplasia 09/26/2024 PCOS (polycystic ovarian syndrome) 09/26/2024 Assessment & Plan (09/26/2024 10:20 AM EDT): Diagnosis reviewed with patient. Reviewed need for endometrial protection. We reviewed that this could be by control pills, other forms of combined hormonal contraception, progesterone only medications, or an IUD. Patient would like to observe off of contraception to see how frequently she menstruates. We discussed the impact of PCOS and fertility, and the benefits of weight loss. Reviewed that a 5 pound modest weight loss increases fertility rates. We reviewed that there is an increased risk of other metabolic disorders including diabetes and hyperlipidemia. I have referred her to her primary care provider to establish care as she will need lifelong screening for these conditions. Encouraged moderate exercise and dietary changes. All questions were answered to the best of my ability. Encounters Date Type Department Care Team Description 12/04/2024 Telephone [facility] [address] [facility] [address] [place] [address] Justice Lee MD 11/24/2024 Results Follow-Up [facility] [address] [place] [address] Justice Lee MD 11/21/2024 2:20 PM EDT Office Visit [facility] [place] [address] Justice Lee MD Abnormal uterine bleeding (AUB) (Primary Dx); Encounter for Papanicolaou smear for cervical cancer screening; History of loop electrical excision procedure (LEEP); HGSIL (high grade squamous intraepithelial lesion) on Pap smear of cervix 11/21/2024 Travel 11/20/2024 Telephone [facility] [address] [facility] [address] [place] [address] Justice Lee MD from Last 3 Months Immunizations Immunization Administration Dates Next Due -influenza Vac Quardvalent Preservativ 02/07/2015 DTaP, Unspecified 11/24/2001, 9,06/21/1998,1997,01/24/1998 Fluzone >6mos 02/08/2016 HPV Quadrivalent 07/17/2010,01/01/2010, 0 Hep A, 2 Dose 07/17/2010 Hep B / HiB 06/21/1998 Hep B, Adolescent or Pediatric 1997 HiB 03/27/1998,01/24/1998 Hib (PRP-OMP) 03/20/1999 Hpv9 07/18/2024 IPV 11/24/2001 Influenza, Unspecified 01/10/2017 MCV4 Unspecified 10/29/2009 MMR 11/24/2001,03/20/1999 OPV 06/21/1998,03/27/1998,01/24/1998 Tdap 09/04/2023,10/29/2009 Varicella 12/19/1998 Social History Tobacco Use Types Packs/Day Years Used Date Smoking Tobacco: Never Smokeless Tobacco: Never Tobacco Cessation:Counseling Given: Not Answered Alcohol Use Standard Drinks/Week Comments Never 0 (1 standard drink = 0.6 oz pur e alcohol) Comments No Sex and Gender Information Value Date Recorded Sex Assigned at Female 09/19/2024 2:57 PM EDT Legal Sex Female 2:56 PM EDT Gender Identity Female 09/19/2024 2:57 PM EDT Sexual Orientation Not on file Last Filed Vital Signs Vital Sign Reading Time Taken Comments Blood Pressure 118/80 11/21/2024 1:54 PM EDT Pulse - - Temperature - - Respiratory Rate - - Oxygen Saturation - - Inhaled Oxygen Concentration - - Weight 64.4 kg (142 lb) 11/21/2024 1:54 PM EDT Height 167.6 cm (5' 6 ) 11/21/2024 1:54 PM EDT Body Mass Index 22.92 11/21/2024 1:54 PM EDT Plan of Treatment Upcoming Encounters Date Type Department Care Team (Late st Contact Info) Description 05/29/2025 2:00 PM EST Ancillary Procedure [facility] [address] [place] [address] 05/29/2025 2:20 PM EST Office Visit [facility] [address] [place] [address] Justice Lee MD [address] [facility] [address] [place] [address] Health Maintenance Due Date Last Done Comments Annual Gynecologic Pelvic an d Breast Exam 1997 ANNUAL PHYSICAL 09/26/2024 HEPATITIS C SCREENING 09/26/2024 INFLUENZA VACCINE 11/10/2024 01/10/2017, 02/08/2016, 02/07/2015 PAP SMEAR 2027 11/21/2024 TDAP/TD VACCINES (3 - Td or Tdap) 09/03/2033 09/04/2023, 10/29/2009 Pneumococcal Vaccine 0-49 Aged Out No longer eligible based on patient's age to complete this topic Procedures Procedure Name Priority Date/Time Associated Diagnosis Comments LIQUID-BASED PAP SMEAR WITH HPV GENOTYPING REGARDLESS OF INTERPRETATION, [facility] ([facility]) Routine 11/21/2024 2:49 PM EDT Encounter for Papanicolaou smear for cervical cancer screening History of loop electrical excision procedure (LEEP) HGSIL (high grade squamous intraepithelial lesion) on Pap smear of cervix from Last 3 Months Results * LIQUID-BASED PAP SMEAR WITH HPV GENOTYPING REGARDLESS OF INTERPRETATION ([facility]) (11/21/2024 2:49 PM EDT) Pathologist [facility] Reference Lab Report FINAL [facility] CYTOLOGY REPORT ---- DIAGNOSIS: Negative for intraepithelial lesion or malignancy Multiple factors can influence accuracy of Pap tests; therefore, screening at regular intervals is necessary for early cancer detection. ---- Adequacy SATISFACTORY FOR EVALUATION Transformation zone is present. Partially obscuring blood is present. Sparse cellularity, minimal number of squamous cells available for evaluation. Source CERVICAL/ENDOCERVI JANICE LMP None provided CLINICAL HISTORY: Routine Abnormal uterine bleeding, History of LEEP, VIVIANA 1 High grade squamous intraepithelial lesion on cytologic smear of anus (HGSIL) The pap smear is a screening test with limited sensitivity, and false negative tests results can occur. ThinPrep Pap imagined by [employer] (AI assisted system). Screened by BRIEN SANCHEZ (ASCP) Aptima HPV: Negative The Aptima HPV assay is an in vitro nucleic acid amplification test for the qualitative detection of E6/E7 viral messenger RNA from 14 high risk types of HPV in cervical specimens. The high risk HPV types detected include: 16, 18, 31, 33, 35, 39, 45, 51, 52, 56, 58, 59, 66 68 11/23/2024 10:27 AM EDT [facility] ThinPrep Vial Cervix uteri structure / Unknown Collection / Unknown 11/21/2024 2:49 PM EDT 11/21/2024 2:49 PM EDT Justice Lee MD PATHOLOGY/CYTOLOGY ORDERABLES F inal Result [facility]
[address] [id number], from Last 3 Months Insurance VEENA TRONCOSO [id number] [facility] MEDICAID Care Teams Asp Net Software Developer Relationship Specialty Start Date End Date Renetta Bedoya APRN [address] [place] [address] VEENA MOSS [id number] PCP - General Nurse Practitioner 09/26/24
--- OUTSIDE RECORDS SUMMARY | 2025-02-17 09:57 | XMS_ITS | Continuity of Care Document ---
Author Organization [facility] Address [address] [facility] [place] [address] Care Team Providers Care Aircraft Skin Burnisher Name Role Phone LEANN LOZANO Primary Care Provider [phone] Assessment No assessment recorded. Plan of Treatment Reminders Order Date Submit Date Provider Last Modified By Organization Details Last Modified Time Details Appointments OV EST 15 2024 10:30A M Miguel Khalil M.D Not available Not available Not available OV EST 15 2025 03:00P M Alfredo Pena Jr, MD Not available Not available Not available Lab urinalys is, dipstick 2024 iisable [facility], [address] [place], [address], 01/31/2025 15:36:46 culture, urine 2024 025 [facility] (Laboratory), [address] [place], [address], 02/01/2025 04:27:12 chlamydi a trachoma tis + neisseri a gonorrho eae + trichomo elysia vaginali s DNA panel, LEBRON+prob e, urine 2024 [address] [place] [id number] [facility] (Laboratory), [address] [place], [address], 02/07/2025 07:22:04 bacteria l vaginosi s + vaginiti s panel, vaginal [address] (Laboratory), [address], [place], [address], 02/07/2025 07:22:03 mycoplas ma genitali um DNA, QL, LEBRON+prob e, urine [address] (Laboratory), [address], [place], [address], 02/07/2025 07:22:04 Referral None recorded . Procedures None recorded . Surgeries None recorded . Imaging None recorded . Medication Orders Tucks (witch derrick) 50 % topical pads 2024 MAGG[facility], [address] [place], [address], 02/14/2025 05:02:26 Patient TargetsNo targets recorded. Patient InstructionsNo instructions recorded. Reason for Referral None Reported. Results Created Date Observation Date Name Description Value Unit Range Abnormal Flag Note LastModifiedBy Organization Detail LastModifiedTime 02/01/2001/31/2025 CULTU RE URINE results LT 02-01 425 >100, 000 COL/M L Gram Negat dandy Rods LT 02-01 426 IDENT IFICA TION AND SUSCE PTIBI LITY TESTI NG PERFO RMED AT [facility] [address] [place] [address] Not Available [facility] (Lab Registration) [address], [place], [address], 02/01/2025 04:27:12 02/01/2001/31/2025 CULTU RE URINE note Unles s other rivera noted testi ng perfo rmed at: [facility] [address] [place] [address] [phone] Calixto childers MD CLIA: [id number] Not Available [facility] (Lab Registration) [address] [place], [address], 02/01/2025 04:27:12 02/01/2001/31/2025 VAGIN ITIS PLUS (VG+) note Unles s other rivera noted testi ng perfo rmed at: [facility] [address] [place] [address] [phone] Calixto childers MD CLIA: [id number] Not Available [facility] (Lab Registration) [address], [place], [address], 02/02/2025 06:12:15 02/01/2002/02/2025 VAGIN ITIS PLUS (VG+) atopobium vaginae High - 2 score delta Not Available [facility] (Lab Registration) [address], [place], [address], 02/02/2025 06:12:15 02/01/2002/02/2025 VAGIN ITIS PLUS (VG+) bvab 2 High - 2 score delta Not Available [facility] (Lab Registration) [address], [place], [address], 02/02/2025 06:12:15 02/01/2002/02/2025 VAGIN ITIS PLUS (VG+) megasphaera 1 High - 2 score delta . Calcu late total score by lucina g [...] the prese nce of BV. Not Available [facility] (Lab Registration) [address], [place], [address], 02/02/2025 06:12:15 02/01/2002/02/2025 VAGIN ITIS PLUS (VG+) linda albicans, LEBRON Negati ve negati ve Not Available [facility] (Lab Registration) [address], [place], [address], 02/02/2025 06:12:15 02/01/2002/02/2025 VAGIN ITIS PLUS (VG+) linda glabrata, LEBRON Negati ve negati ve Not Available [facility] (Lab Registration) [address] [place], [address], 02/02/2025 06:12:15 02/01/2002/02/2025 VAGIN ITIS PLUS (VG+) trich vag by LEBRON Negati ve negati ve Not Available [facility] (Lab Registration) [address] [place], [address], 02/02/2025 06:12:15 02/01/2002/02/2025 VAGIN ITIS PLUS (VG+) chlamydia trachomatis, LEBRON Negati ve negati ve Not Available [facility] (Lab Registration) [address] [place], [address], 02/02/2025 06:12:15 02/01/2002/02/2025 VAGIN ITIS PLUS (VG+) neisseria gonorrhoeae, LEBRON Negati ve negati ve Perfo rmed at: [facility] [place] [address] [facility] [place] [address] Lab Direc tor: Nasir mosley MD, Phone : [phone] Not Available [facility] (Lab Registration) [address] [place], [address], 02/02/2025 06:12:15 02/01/2001/31/2025 CULTU RE URINE culccur ===== ===== ===== ===== ===== ===== ===== ===== ===== ===== ===== ===== ===== ===== ===== ===== ===== ===== ===== ===== ===== ===== ===== ===== Speci men NO.: [id number] Exam Statu s: Final Proce dure: CULTU RE URINE ===== ===== ===== ===== ===== ===== ===== ===== ===== ===== ===== ===== ===== ===== ===== ===== ===== ===== ===== ===== ===== ===== ===== ===== Iso/R esult : 01 Esche delbert a coli Antim icrob ic/Do se ILIR Syste ilir Urine __ ___ ___ Aztre onam <2 S Cipro floxa jeanne 1 R ESBL NEG N Levof loxac in 1 I Merop enem <0.5 S Amika jeanne <=8 S Ampic illin >16 R Amp/S ulbac menchaca 16/8 I Cefep ming <=1 S Cefta zidim e <=2 S Ceftr iaxon e <=1 S Ertap enem <=0.2 5 S Genta micin <=2 S Nitro furan toin <=16 S Piper acill in/Ta zo 4/4 S Tetra cycli ne >8 R Tobra mycin <=2 S Trime th/Cutler lfa > R Sensi tivit y Requi red? YES LT 02-01 425 >100, 000 COL/M L Gram Negat dandy Rods LT 02-01 426 IDENT IFICA TION AND SUSCE PTIBI LITY TESTI NG PERFO RMED AT [facility] [address] [place] [address] Not Available [facility] (Lab Registration) [address] [place], [address], 02/02/2025 07:32:34 02/01/2001/31/2025 CULTU RE URINE note Unles s other rivera noted testi ng perfo rmed at: [facility] [address] [place] [address] [phone] Calixto childers MD CLIA: [id number] Not Available [facility] (Lab Registration) [address] [place], [address], 02/02/2025 07:32:34 02/01/2001/31/2025 MYCOP LASMA GENIT ALIUM LEBRON, UR note Unles s other rivera noted testi ng perfo rmed at: [facility] [address] [place] [address] [phone] Calixto childers MD CLIA: [id number] Not Available [facility] (Lab Registration) [address] [place], [address], 02/03/2025 05:09:41 02/01/2002/03/2025 MYCOP LASMA GENIT ALIUM LEBRON, UR mycoplasma genitalium LEBRON Negati ve negati ve Perfo rmed at: =[facility] [place] [address] [facility] , [facility] [place] [address] Lab Direc tor: Nasir mosley MD, Phone : [phone] Not Available [facility] (Lab Registration) [address] [place], [address], 02/03/2025 05:09:41 02/01/2001/31/2025 urina lysis , dipst ick Leukocytes (reference range) negati ve Not Available [facility] [address] [facility] [place], [address], 01/31/2025 15:24:48 02/01/20 25 01/31/2025 urina lysis , dipst ick Nitrite (reference range:) positi ve Not Available [address] [place], [address], 01/31/2025 15:24:48 02/01/20 25 01/31/2025 urina lysis , dipst ick Urobilinogen (reference range) 0.2 Not Available [address] [place], [address], 01/31/2025 15:24:48 02/01/2001/31/2025 urina lysis , dipst ick Protein (reference range) 100 Not Available [address] [place], [address], 01/31/2025 15:24:48 02/01/20 25 01/31/2025 urina lysis , dipst ick pH (reference range 5-8.5) 5.5 Not Available [address] [place], [address], 01/31/2025 15:24:48 02/01/20 25 01/31/2025 urina lysis , dipst ick Blood (reference range:) small Not Available [address] [place], [address], 01/31/2025 15:24:48 02/01/20 25 01/31/2025 urina lysis , dipst ick Specific [place] (reference range) 1.030 Not Available [address] [place], [address], 01/31/2025 15:24:48 02/01/20 25 01/31/2025 urina lysis , dipst ick Ketone (reference range) negati ve Not Available [address] [place], [address], 01/31/2025 15:24:48 02/01/20 25 01/31/2025 urina lysis , dipst ick Bilirubin (reference range) negati ve Not Available [address] [place], [address], 01/31/2025 15:24:48 02/01/20 25 01/31/2025 urina lysis , dipst ick Glucose (reference range) negati ve Not Available [address] [place], [address], 01/31/2025 15:24:48 02/01/20 25 01/31/2025 urina lysis , dipst ick Color (reference range: yellow-brown ) Dark Yellow Not Available [address] [place], [address], 01/31/2025 15:24:48 Result Notes None recorded. Problems Name Problem SNOMED Code Status Onset Date Resolution Date Notes Provider Name and Address Organization Details Recorded Time Depressive disorder 24898482 Active 023 Mitzi Crooks null, [place] - [facility] - [place] & [place] 3 11:36:59 Renal abscess 3945960 Active 023 Solomon Miller null, [place] [facility] [place] & [place] 4 14:53:48 Recurrent genital herpes simplex 353506675 Active 024 Solomon Miller null, [place] - [facility] [place] & [place] 4 14:53:43 Problem Notes None recorded. Procedures Surgical History Date Name Laterality Status Provider Name and Address Organization Details Recorded Time 09/14/19 24 Suture/Staple removal completed LEANN LOZANO NP [address], [place], [address], [place] - [facility] - [place] & [place] 09/14/2023 12:21:17 02/18/20 22 Date of Last Pap Smear completed Mitzi CURIEL - [facility] - [place] & [place] 08/17/2022 11:36:13 12/27/19 14 Cholecystectomy completed Deborah Narvaez [facility] & [place] 11/23/2023 09:25:30 Imaging Results None recorded. Procedure Notes None recorded. Medical Equipment None Reported. Allergies Allergen ID Allergen Name Allergen Category Reaction Reaction Severity Criticality Documentation Date Start Date Code Code System Note Provider Name and Address Organization Details Recorded Time 40386 azithromy jeanne medicatio n flushing moderate high 04/28/2022 50044 RxNorm Mitzi Crooks null, [facility] & [place] 3 15:26:01 02441 Macrobid medicatio n rash Not available low 06/25/20222022 50930 1 RxNorm Chandrika Haywood APRN [address] [place], [address] [place] [address] & [place] 3 14:31:22 Medications Name Sig Start Date Stop Date Status Note LastModified by Organization Details LastModified Time medroxyprog esterone 10 mg tablet TAKE 1 TABLET BY MOUTH EVERY DAY X 10 DAYS UNTIL VAGINAL BLEEDING STOPS 01/31 completed Not Available Not Available Not Available buspirone 5 mg tablet 01/31 completed Not Available Not Available Not Available venlafaxine ER 37.5 mg capsule,ext ended release 24 hr Take 1 capsule every day by oral route for 90 days. 02/27 completed Not Available Not Available Not Available trazodone 50 mg tablet 01/31 completed Not Available Not Available Not Available cetirizine 10 mg tablet 09/13 completed Not Available Not Available Not Available IBU 800 mg tablet Take 1 tablet 3 times a day by oral route. 05/27 completed Not Available Not Available Not Available Retin-A 0.025 % topical cream APPLY TO THE AFFECTED AREA(S) BY TOPICAL ROUTE ONCE DAILY AT BEDTIME 01/31 completed Not Available Not Available Not Available fluconazole 150 mg tablet Take 1 tablet now, may repeat in 5 days 02/27 completed Not Available Not Available Not Available valacyclovi r 1 gram tablet Take 1 tablet every day by oral route for 30 days. 01/31 completed Not Available Not Available Not Available hydrocodone 5 mg-acetamin ophen 325 mg tablet TAKE 1 TABLET ORAL ROUTE EVERY 6 HOURS NEEDED 05/27 completed Not Available Not Available Not Available senna 8.6 mg tablet Take 2 tablets every day by oral route. 01/31 completed Not Available Not Available Not Available meloxicam 15 mg tablet Take 1 tablet every day by oral route for 14 days. 09/13 completed Not Available Not Available Not Available phenazopyri dine 200 mg tablet Take 1 tablet 3 times a day by oral route for 2 days. 07/20 completed Not Available Not Available Not Available ondansetron HCl 4 mg tablet 04/29 completed Not Available Not Available Not Available rizatriptan 10 mg tablet 03/27 completed Not Available Not Available Not Available hydroxyzine pamoate 50 mg capsule 02/10 completed Not Available Not Available Not Available metronidazo le 500 mg tablet Take 1 tablet twice a day by oral route for 7 days. 02/16 completed Not Available Not Available Not Available valacyclovi r 500 mg tablet Take 1 tablet every day by oral route for 90 days. 04/29 completed Not Available Not Available Not Available ciprofloxac in 500 mg tablet Take 1 tablet every 12 hours by oral route for 5 days. 2024 active Not Available Not Available Not Avai lable sulfamethox azole 800 mg-trimetho prim 160 mg tablet Take 1 tablet every 12 hours by oral route for 5 days. 04/29 completed Not Available Not Available Not Available ondansetron 8 mg disintegrat ing tablet Place 1 tablet twice a day by transling ual route as needed. 04/29 completed Not Available Not Available Not Available ketorolac 10 mg tablet 03/27 completed Not Available Not Available Not Available prednisone 10 mg tablets in a dose pack Take 1 dose pk by oral route as directed, for 6-5-4-3-2 -1. 01/31 completed Not Available Not Available Not Available Macrobid 100 mg capsule Take 1 capsule every 12 hours by oral route for 5 days. 02/14 completed Not Available Not Available Not Available ofloxacin 0.3 % ear drops INSTILL 10 DROPS IN RIGHT EAR EVERY DAY FOR 7 DAYS 01/31 completed Not Available Not Available Not Available methenamine hippurate 1 gram tablet Take 1 tablet every day by oral route. 01/31 completed Not Available Not Available Not Available amoxicillin 875 mg tablet TAKE 1 TABLET BY MOUTH TWICE DAILY 01/31 completed Not Available Not Available Not Available famotidine 20 mg tablet 03/17 completed Not Available Not Available Not Available methocarbam ol 750 mg tablet Take 1 tablet every day by oral route at bedtime for 14 days. 09/13 completed Not Available Not Available Not Available ascorbic acid (vitamin C) 500 mg tablet Take 1 tablet 3 times a day by oral route. 01/31 completed Not Available Not Available Not Available hydrocodone 7.5 mg-acetamin ophen 325 mg tablet TAKE 1 TABLET BY MOUTH EVERY 4 TO 6 HOURS NEEDED FOR PAIN 06/19 completed Not Available Not Available Not Available cephalexin 500 mg capsule Take 1 capsule twice a day by oral route for 5 days. 10/05 completed Not Available Not Available Not Available oseltamivir 75 mg capsule TAKE 1 CAPSULE BY MOUTH EVERY 12 HOURS FOR 5 DAYS 09/13 completed Not Available Not Available Not Available clotrimazol e-betametha sone 1 %-0.05 % topical cream APPLY TO THE AFFECTED ON OUTSIDE OF VAGINA ONCE TO TWICE DAILY FOR 1 WEEK. 11/25 completed Not Available Not Available Not Available promethazin e 25 mg/mL injection solution Take 25 mg by injection route. 04/29 completed Not Available Not Available Not Available docusate sodium 100 mg capsule TAKE 1 CAPSULE BY MOUTH EVERY DAY 01/31 completed Not Available Not Available Not Available sertraline 25 mg tablet 09/13 completed Not Available Not Available Not Available omeprazole 20 mg capsule,del ayed release TAKE 1 CAPSULE EVERY DAY BY ORAL ROUTE FOR 30 DAYS. 01/31 completed Not Available Not Available Not Available hydroxyzine HCl 25 mg tablet Take 1 tablet every day by oral route as needed for 30 days, for for panic attack. 01/31 completed Not Available Not Available Not Available mupirocin 2 % topical ointment APPLY A SMALL AMOUNT TO THE AFFECTED AREA BY TOPICAL ROUTE 3 TIMES PER DAY 10/05 completed Not Available Not Available Not Available cefuroxime axetil 500 mg tablet Take 1 tablet every 12 hours by oral route for 10 days. 06/30 completed Not Available Not Available Not Available hydroxyzine HCl 10 mg tablet 09/13 completed Not Available Not Available Not Available clobetasol 0.05 % scalp solution APPLY TO THE AFFECTED SCALP AREA BY TOPICAL ROUTE 2 TIMES PER DAY IN THE MORNING AND EVENING for 2 weeks 01/31 completed Not Available Not Available Not Available ondansetron 4 mg disintegrat ing tablet 03/17 completed Not Available Not Available Not Available cefdinir 300 mg capsule Take 1 capsule every 12 hours by oral route for 7 days. 03/17 completed Not Available Not Available Not Available fluoxetine 20 mg capsule 01/31 completed Not Available Not Available Not Available sertraline 50 mg tablet Take 1 tablet every day by oral route. 05/27 completed Not Available Not Available Not Available Lexapro 10 mg tablet Take 1 tablet every day by oral route for 30 days. 12/19 completed Not Available Not Available Not Available eletriptan 40 mg tablet one po prn headache, may repeat x 1 in 2 hours, NTE 2 in 24 hours 01/31 completed Not Available Not Available Not Available escitalopra m 5 mg tablet Take 1 tablet every day by oral route. 09/13 completed Not Available Not Available Not Available topiramate 50 mg tablet one po qhs x 1 week, then one po BID 01/31 completed Not Available Not Available Not Available Tracie (linda meza) 50 % topical pads Apply 1 pad 4 times a day by topical route as needed for 7 days. 02/14 completed Not Available Not Available Not Available tranexamic acid 650 mg tablet TAKE 2 TABLETS BY MOUTH THREE TIMES DAILY FOR 5 DAYS. REPEAT MONTHLY WITH MENSTRUAL CYCLE 01/31 completed Not Available Not Available Not Available Malu 0.35 mg tablet TAKE ONE TABLET BY MOUTH DAILY 01/31 completed Not Available Not Available Not Available Blisovi Fe 05/01 (28) 1 mg-20 mcg (21)/75 mg (7) tablet TAKE ONE TABLET BY MOUTH EVERY DAY 01/31 completed Not Available Not Available Not Available Vraylar 1.5 mg capsule TAKE 1 CAPSULE EVERY OTHER DAY BY ORAL ROUTE FOR 30 DAYS. 01/31 completed Not Available Not Available Not Available Emgality Pen 120 mg/mL subcutaneou s pen injector one subq inj monthly 01/31 completed PA - Not Available Not Available Not Available Slynd 4 mg (28) tablet Take by oral route for 28 days. 01/31 completed Not Available Not Available Not Available Ubrelvy 100 mg tablet TAKE 1 TABLET EVERY OTHER DAY BY ORAL ROUTE NEEDED FOR 30 DAYS, FOR MIGRAINE ABORTIVE. 01/31 completed Not Available Not Available Not Available Nurtec ODT 75 mg disintegrat ing tablet Take by oral route for 30 days. 01/31 completed pa - Not Available Not Available Not Available Phexxi 1.8 %-1 %-0.4 % vaginal gel INSERT ONE APPLICATO RFUL VAGINALLY ONCE WITHIN ONE HOUR BEFORE EACH ACT OF VAGINAL INTERCOUR SE 06/30 completed Not Available Not Available Not Available Qulipta 60 mg tablet TAKE 1 TABLET EVERY DAY BY ORAL ROUTE FOR 90 DAYS, FOR MIGRAINES PREVENTIO N. 01/31 completed Not Available Not Available Not Available Zavzpret 10 mg/actuatio n nasal spray one spray in one nostril prn headache 01/31 completed Not Available Not Available Not Available Vitals Date Recorded Body height Body mass index (BMI) Body weight Body temperature Oxygen saturation Oxygen saturation in Arterial blood by Pulse oximetry Heart rate Respiratory rate Systolic And Diastolic Provider Name and Address Organization Details Last Updated DateTime 167.64 cm 23.3 kg/m2 87777.0 2 g 98.1 [degF] 100 % 100 % 80 /min 16 /min 149/96 mm[Hg] Tanesha Isable [place] - [facility] - [place] & [place] 15:10:23 Social History Question Answer Notes LastModified by Organizat ion Details LastModified Time Tobacco Smoking Status Never Smoker Mitzi Valeriy null, [place] - [facility] [place] & [place] 04/28/2022 15:26:21 Do You Have An Advance Directive? No Information n ot available 08/17/2022 Do You Wear A Helmet When Biking? Yes [email or web address] Information not available 07/01/2023 Are You Blind Or Do You Have Difficulty Seeing? No Information n ot available 08/17/2022 Is Blood Transfusion Acceptable In An Emergency? No [email or web address] Information not available 07/01/2023 What Is Your Level Of Caffeine Consumption? Occasional [email or web address] Information not available 02/10/2023 In The 14 Days Before Symptom Onset, Have You Had Close Contact With A Laboratory-confirm ed COVID-19 While That Case Was Ill? No [email or web address] Information n ot available 07/01/2023 In The 14 Days Before Symptom Onset, Have You Had Close Contact With A Person Who Is Under Investigation For COVID-19 While That Person Was Ill? No [email or web address] Information not available 07/01/2023 Have You Been To An Area Known To Be High Risk For COVID-19? No [email or web address] Information not available 07/01/2023 Are You Deaf Or Do You Have Serious Difficulty Hearing? No Information not available 07/01/2023 What Type Of Diet Are You Following? REGULAR Information n ot available 07/01/2023 Have You Processed Blood Or Body Fluids From An Ebola Virus Disease Patient Without Appropriate PPE? No [email or web address] Information not available 07/01/2023 Do You Reside In Or Have You Traveled To An Area Where Ebola Virus Transmission Is Active? No [email or web address] Information not available 07/01/2023 Have There Been Any Changes To Your Family Or Social Situation? No [email or web address] Information no t available 07/01/2023 What Is The Fluoride Status Of Your Home? Unknown [email or web address] Information not available 07/01/2023 Are There Any Guns Present In Your Home? No Information not available 07/01/2023 Have You Recently Or Are You Planning To Travel To An Area With Zika Virus? No Information not available 07/01/2023 Do You Use Insect Repellent Routinely? Yes [email or web address] Information not available 07/01/2023 Do You Feel Safe At Home? Yes [email or web address] Information not available 07/01/2023 Do You Have A Medical Power Of Addictions Counselor? No [email or web address] Information not available 07/01/2023 What Was The Date Of Your Most Recent Tobacco Screening? 01/31/2025 [email or web address] Information not available 01/31/2025 Do You Have Any Pets? No Information not available 07/01/2023 What Is Your Relationship Status? Unknown [email or web address] Information not available 07/01/2023 Do You Use Your Seat Belt Or Car Seat Routinely? Yes [email or web address] Information not available 07/01/2023 Do You Have Smoke And Carbon Monoxide Detectors In Your Home? Yes Information not available 07/01/2023 Are You Passively Exposed To Smoke? No Information no t available 08/17/2022 How Much Tobacco Do You Smoke? No Information not available 08/17/2022 Do You Use Sunscreen Routinely? Yes [email or web address] Information not available 07/01/2023 Has Tobacco Cessation Counseling Been Provided? No [email or web address] Information not available 02/10/2023 Do You Have Difficulty Walking Or Climbing Stairs? No Information not available 07/01/2023 Are You Currently In School? No Information not available 07/01/2023 Sex: Female Functional Status Question Answer Note LastModified by Organizat ion Details LastModified Time Do you use any illicit or recreational drugs? No Information not available 04/28/2022 Do you or have you ever used any other forms of tobacco or nicotine? No [email or web address] Information not available 02/10/2023 What is your level of alcohol consumption? None Information not available 08/17/2022 Are you currently employed? Yes [email or web address] Information not available 07/01/2023 Do you have transportation difficulties? No [email or web address] Information not available 07/01/2023 Are you able to walk independently without assistance or assistive devices? YESWOREST [email or web address] Information not available 07/01/2023 Do you have difficulty doing errands alone? No [email or web address] Information not available 07/01/2023 Are you able to care for yourself independently? Yes [email or web address] Information not available 07/01/2023 Do you have difficulty dressing, bathing, grooming, or toileting? No Information not available 07/01/2023 What is your exercise level? Moderate Information not available 08/17/2022 Mental Status Question Answer Note LastModified by Organizat ion Details LastModified Time Do you feel stressed (tense, restless, nervous, or anxious, or unable to sleep at night)? [id number] Information not available 08/17/2022 Do you have difficulty concentrating, remembering or making decisions? No [email or web address] Information no t available 07/01/2023 Family History Relationship Description Onset Age of this Age Resolved Age Notes LastModified by Organization Details LastModified Time Sister Headache 1 Not available 11/23/2023 09:22:03 Maternal Grandfather Coronary arterioscler osis [email or web address] Not available 09/26 08:03:35 Maternal Grandfather Hypertensive disorder [email or web address] Not available 2023 09:22:58 Unspecified Relation Diabetes mellitus Patern al Grandp arent [email or web address] Not available 09/26/2024 08:03:35 Unspecified Relation Kidney disease Patern al grandp arent Not available 11/23/2023 09:24:24 Mother Hypertensive disorder [email or web address] Not available 2023 09:24:34 Mother Heart disease [email or web address] Not available 2023 09:25:07 Mother Diabetes mellitus [email or web address] Not available 09/26 08:03:35 Medical History Condition Response Heart Problems Y Headaches Y Acne Y Gynecological History Statement/Question Response Abnormal Pap N Duration of Flow (days) 5 Date of Last Pap Smear 02/17/2022 Current Control Method Other Flow Moderate Sexually Active? Y Obstetrics History GPAL:G 0 P 0 0 0 0 Immunizations Vaccine Type Date Status Note Provider Nam e and Address Organization Details Recorded Time Hib-Hep B 9 completed Mitzi Pardini null, [place] - [facility] [place] [facility] [place] 04/28/2022 15:25:33 Hib, unspecified formulation 8 completed Mitzi Pard[place] [facility] [place] 04/28/2022 15:25:33 DTaP, unspecified formulation 9 completed Mitz[place] [facility] [place] [facility] [place] 04/28/2022 15:25:33 HPV, quadrivalent 0 completed Mitzi [place] [facility] [place] [facility] & [place] 04/28/2022 15:25:33 Hib, unspecified formulation 8 completed Mitzi Pard[place] [facility] [place] & [place] 04/28/2022 15:25:33 HPV, quadrivalent 1 completed Mitzi Pard[place] [facility] [place] [facility] & [place] 04/28/2022 15:25:33 MMR 2 completed Mitzi [place]ard[place] [facility] [place] [facility] & [place] 04/28/2022 15:25:33 OPV, trivalent 8 completed Mitzi [place] [facility] [place] & [place] 04/28/2022 15:25:34 Hib (PRP-OMP) 9 completed Mitzi [place] [facility] [place] 04/28/2022 15:25:34 DTaP, unspecified formulation 9 completed Mitzi [place] [facility] [place] & [place] 04/28/2022 15:25:34 OPV, trivalent 8 completed Mitz[place] [facility] [place] 04/28/2022 15:25:34 DTaP, unspecified formulation 2 completed Mitzi [place] [facility] [place] [facility] & [place] 04/28/2022 15:25:34 DTaP, unspecified formulation 8 completed Mitzi [place] [facility] [place] & [place] 04/28/2022 15:25:34 Tdap 0 completed Mitz[place] [facility] [place] & [place] 04/28/2022 15:25:34 meningococcal MCV4, unspecified formulation 0 completed Mitz[place] [facility] [place] [facility] & [place] 04/28/2022 15:25:34 OPV, trivalent 9 completed Mitz[place] [facility] [place] [facility] [place] 04/28/2022 15:25:34 DTaP, unspecified formulation 8 completed Mitz[place] [facility] [place] [facility] [place] 04/28/2022 15:25:34 HPV, quadrivalent 0 completed Mitz[place] [facility] [place] [facility] [place] 04/28/2022 15:25:34 Hep A, ped/adol, 2 dose 1 completed Mitz[place] [facility] [place] [facility] & [place] 04/28/2022 15:25:34 varicella 9 completed Mitz[place] [facility] [place] [facility] & [place] 04/28/2022 15:25:34 IPV 2 completed Mitz[place] [facility] [place] [facility] & [place] 04/28/2022 15:25:34 Hep B, adolescent or pediatric 8 completed Mitz[place] [facility] [place] [facility] & [place] 04/28/2022 15:25:34 MMR 9 completed Mitz[place] [facility] [place] [facility] & [place] 04/28/2022 15:25:34 Influenza, split virus, quadrivalent, preservative 5 completed Titus Huff null[place] [facility] [place] 09/14/2023 11:45:08 Tdap 4 completed Deborah Narvae[place] [facility] [place] 11/30/2023 15:43:02 Influenza, split virus, trivalent, PF 6 completed Titus Huff [place] [facility] [place] 09/14/2023 11:45:08 HPV9 5 completed Not Available [facility] 01/31/2025 15:02:20 Past Encounters Encounter ID Performer Location Encounter Start Date Encounter Closed Date Diagnosis/Indication Diagnosis SNOMED-CT Code Diagnosis ICD10 Code Diagnosis IMO Codes Diagnosis Note [id number] LEANN LOZANO NP [facility] [address] [place] [address] 01/31/2025 15:00:53 01/31/2025 16:00:45 Dysuria 32866369 R30.0 [id number] Office UA suggesting UTI, urine sent for culture and office will call after culture received. Take all medicines prescribed for you for the allotted time period. Push fluids especially water. If no better in 48-72 hours or if you develop abdominal or back pain, with fever chills nausea or vomiting come back or go to the emergency room immediatel y Acute vaginitis 43073061 N76.0 18007 awaiting testing swabtucks pads to help with irritation Health Concerns Section Related Observation LastModified by Organization Detai ls LastModified Time None Recorded Concern Status LastModified by Organization Details LastModified Time None Recorded Payers Encounter Date Sequence Insurance Name Policy Number Policy Gordon Covered Member ID Gordon Member ID Guarantor Name 01/31/2025 1 [facility] (MEDICAID HMO) [id number] Lauren Mcneill [id number] Lauren Mcneill Notes Date Note Type Note Provider Name and Address Organization Details Recorded Time 01/31/2025 text/html ROS as noted in the HPI Lauren Mcneill is a 29-year-old female who presents for evaluation of vaginal problems. She reports that she used boric acid yesterday, which accidentally entered her urethra. She was able to remove it, but now experiences burning localized to the urethra during urination. She denies difficulty urinating and states she is voiding normally. She also reports irritation and a sensation resembling menstruation, accompanied by an odor she describes as older or unpleasant. She denies any issues with bowel movements. LEANN LOZANO NP [address], [place], [address], [facility] & [place] 02/01/2025 17:07:14 OBGyn Episode No OBEpisode recorded.
--- OUTSIDE RECORDS SUMMARY | 2025-02-17 09:57 | XMS_ITS | Data Portability ---
Author Organization VEENA PETRA [facility] Address [address] [place] [address] Assessment Encounter Date Assessment Date Assessment LastModified by Organization Details LastModified Time 05/11/2017 05/11/2017 1. headache; onset approx 1 year ago, occurs daily 2. Sick headache pattern, suggests migraine without aura, yet unusual every day headache 3. History of prior diagnosis benign intracranial headache dx 2017) LP opening pressure 22 cm H2O history of acetozolamide use ; chart notes say improved ; patient says it did not help 4. Normal neurological exam, normal vision screening by exam and normal fundus exam today 5. Candidate for empirical anti-migraine Rx propranolol 10 mg x 1 qAM and q Noon I advised watch for adverse effect of low BP upon standing Plan1. Good candidate for propranolol 10mg 1 Qam and 1 Qnoon 2. Follow up in 8weeks Blood pressure will be rechecked at next office meeting [email or web address] Not available 05/11/2017 14:16:19 07/07/2017 07/07/2017 pseudotumor cerebri 1. History of prior diagnosis benign intracranial headache dx 2017) LP opening pressure 22 cm H2O 2. Normal neurological exam, normal vision screening by exam and abnormal discs Plan 1. Stop propranolol 2. Trial of acetazolamide 250mg goal of 2 BID 3.Start prednisone 30mg daily 4. Schedule LP Follow up after LP [email or web address] Not available 07/07/2017 22:46:02 07/29/2017 07/29/2017 1. Recurrent headache, cause is not clear 2. Etiology is likely tension-type headache 3. In prior evaluations, cause was suspected due to pseudotumor cerebri however, evaluations this year have not suggested that cause 4. Recent lumbar puncture had normal opening pressure 19 cm H2O 5. Normal neurological exam, 6. Lack of benefit from many headache prevention medications I talked with patient about importance that any decision about use of a medication must be decided in regard to the possibility that she is fertile and could conceive a baby while on any regimen. She is able to conceive and does not take a oral contraceptive Plan 1. Regretably I do not see a way that I can improve her headaches 2. I discussed with her that her family provider could make a referral to to have evaluation by a headache specialist 3. I proposed using heat or ice on neck and shoulders to alleviate symptoms 4. I have not scheduled any further evaluations or testing I spent 30 minutes with patient, > 50% of time counseling [email or web address] Not available 08/04/2017 08:27:13 Plan of Treatment Reminders Order Date Submit Date Provider Last Modified By Organization Details Last Modified Time Details Appointments None recorded. Lab None recorded. Referral None recorded. Procedures lumbar puncture (PROC) - Perform Therapeutic Tap (record opening and closing pressures in lateral recumbent position) Send CSF for cell count, glucose, protein 2017 018 [facility] , [place], [address], 8 09:02:58 Surgeries None recorded. Imaging None recorded. Medication Orders acetazolami de 250 mg tablet 2017 018 [email or web address] [facility] [address] [place], [address], 8 09:34:44 prednisone 10 mg tablet 2017 018 [email or web address] [facility] [address] [facility] [place], [address], 8 09:34:47 propranolol 10 mg tablet 2017 018 [email or web address] [facility] [address] [place], [address], 8 10:38:44 Patient TargetsNo targets recorded. Patient Instructions Encounter Date Encounter Id Patient Instructions Last Modified By Organization Details Last Modified Time 05/11/2017 [id number] headache: care instructions [email or web address] Not available 05/11/2017 14:17:32 elevated blood pressure: care instructions [email or web address] Not available 05/11/2017 10:38:44 07/07/2017 [id number] headache: care instructions [email or web address] Not available 07/08/2017 11:48:27 07/29/2017 [id number] headache: care instructions [email or web address] Not available 07/29/2017 11:04:51 tension headache : care instructions [email or web address] Not available 08/04/2017 08:27:42 Reason for Referral None Reported. Results Created Date Observation Date Name Description Value Unit Range Abnormal Flag Note LastModifiedBy Organization Detail LastModifiedTime 05/11/19 18 05/11/2017 NM, cereb ral spina l fluid , for leak detec tion + local izati on No observ ation record ed. BARCODE Not Available 2017 09:26:38 07/10/19 18 07/09/2017 lumba r punct ure (PROC ) No observ ation record ed. [email or web address] [facility] [address] [place], [address], 07/12/2017 09:02:58 Result Notes None recorded. Problems Name Problem SNOMED Code Status Onset Date Resolution Date Notes Provider Name and Address Organization Details Recorded Time Headache [id number] Active 018 Delmi (Grace) Cliff [facility] 07/07/2017 16:49:36 Problem Notes None recorded. Medical Equipment None Reported. Allergies Allergen ID Allergen Name Allergen Category Reaction Reaction Severity Criticality Documentation Date Start Date Code Code System Note Provider Name and Address Organization Details Recorded Time 126626 erythromy jeanne medicatio n Not available Not available Not available 05/11/2017 4053 RxNorm Tamar Izaguirre [facility] 8 08:44:18 Medications Name Sig Start Date Stop Date Status Note LastModified by Organization Details LastModified Time prednisone 10 mg tablet 3 tabs po QD 07/29 completed Not Available Not Available Not Available acetazolamide 250 mg tablet 1 tab po BID x 1week then 2 tabs po BID there after 07/29 completed Not Available Not Available Not Available propranolol 10 mg tablet 1 tab po qam and 1 tab po Qnoon 2017 active Not Available Not Available Not Avai lable Vitals Date Recorded Body height Body mass index (BMI) Body weight Systolic And Diastolic Provider Name and Address Organization Details Last Updated DateTime 05/11/2017 162.56 cm 24.7 kg/m2 67799.3 g 112/80 mm[Hg] Claudia Baeuchamp [facility] 05/11/2017 08:22:12 Date Recorded Body height Provider Name an d Address Organization Details Last Updated DateTime 07/07/2017 162.56 cm Ronak [facility] 07/07/2017 16:39:49 Date Recorded Body mass index (BMI) Body weight Systolic And Diastolic Provider Name and Address Organization Details Last Updated DateTime 07/07/2017 25.1 kg/m2 25910.49 g 108/74 mm[Hg] Delmi Christine) Cliff [facility] 07/07/2017 16:49:22 Date Recorded Body height Body mass index (BMI) Body weight Systolic And Diastolic Provider Name and Address Organization Details Last Updated DateTime 07/29/2017 162.56 cm 24.5 kg/m2 71335.71 g 118/72 mm[Hg] Claudia Nito [facility] 07/29/2017 08:56:21 Social History Question Answer Notes LastModified by Organizat ion Details LastModified Time Tobacco Smoking Status Never Smoker Claudia Beauchamp [facility] 05/11/2017 08:14:02 Marital Status AMBAR [email or web address] Informatio n not available 05/11/2017 What Was The Date Of Your Most Recent Tobacco Screening? 07/29/2017 Information not available 05/30/2019 How Much Tobacco Do You Smoke? No [email or web address] Information not available 05/11/2017 Sex: Unknown Functional Status Question Answer Note LastModified by Organizat ion Details LastModified Time What is your level of alcohol consumption? None Information not available 05/11/2017 What is your occupation? UNEMPLOYED [email or web address] Information not available 05/11/2017 Mental Status None recorded. Family History Relationship Description Onset Age of this Age Resolved Age Notes LastModified by Organization Details LastModified Time Mother History of hypertension [email or web address] Not available 08:12:56 Mother Diabetes mellitus Not available 2017 08:13:05 Mother Obesity [email or web address] Not available 05/11/2017 08:13:27 Brother History of hypertension [email or web address] Not available 08:12:56 Brother Obesity Not available 05/11/2017 08:13:27 Paternal Grandmother History of hypertension [email or web address] Not available 08:12:56 Maternal Grandmother Diabetes mellitus [email or web address] Not available 2017 08:13:05 Maternal Grandmother Obesity Not available 05/11 08:13:27 Sister Obesity [email or web address] Not available 05/11/2017 08:13:27 Medical History No medical history recorded. Gynecological HistoryNo gynecological history recorded. Obstetrics History GPAL:G 0 P 0 0 0 0 Immunizations Vaccine Type Date Status Note Provider Nam e and Address Organization Details Recorded Time influenza, unspecified formulation 01/10/2017 completed Claudia Beauchamp [facility] 05/11/2017 08:12:34 Past Encounters Encounter ID Performer Location Encounter Start Date Encounter Closed Date Diagnosis/Indication Diagnosis SNOMED-CT Code Diagnosis ICD10 Code Diagnosis IMO Codes Diagnosis Note [id number] CANDICE DILLARD [facility] [address] [place] [address] 05/11/2017 07:43:42 05/11/2017 09:05:12 Migraine 89195674 G43.909 Headache 41941110 R51 Chronic he adache disorder 876248892 G43.610 [id number] CANDICE DILLARD MD [facility] [address] [place] [address] 07/07/2017 14:55:56 07/08/2017 07:40:23 Headache 40128960 R51 Benign int racranial hypertension 65014871 G93.2 [id number] CANDICE DILLARD MD [facility] [address] [place] [address] 07/29/2017 08:24:35 07/29/2017 09:48:42 Headache 36690378 R51 Tension-type headache 39 4462293 G44.209 Health Concerns Section Related Observation LastModified by Organization Detai ls LastModified Time None Recorded Concern Status LastModified by Organization Details LastModified Time None Recorded Advance Directives Directive None Recorded Payers Insurance Date Sequence Insurance Name Policy Number Policy Gordon Covered Member ID Gordon Member ID Guarantor Name 03/06/2020 1 [employer] ([facility]) [id number] Lauren Leonard [id number] Lauren Leonard Notes Date Note Type Note Provider Name and Address Organization Details Recorded Time 05/11/2017 text/html This is my first time to evaluate this 21-year-old female. Seen at the request of Dr. Cinda Gonzalez CC: Migraine Today she reports she has had migraine for approx one year. With a typical migraine she will have blurry vision and N/V. She will have pain all over her head. she says every dy pain She gets some warning before a migraine .. Her migraines will last all day. She is unable to get benefit from over the counter medications. No family history of migraine She reports that she has daily headaches. She has tried Diamox without benefit. She reports that approx one year ago she had a spinal tab her opening pressure was 22. She states that her headaches improved with the LP. She has had brain MRI 08/2016 normal study CANDICE DILLARD MD [address] [place] [address], [phone], [facility] 05/11/2017 14:18:09 07/07/2017 text/html every day, all day headache head pressure, head full, vision is OK no ringing in ears headaches come during night sometimes laying down makes worse has headache now CANDICE DILLARD MD [address] [place] [address] [place], [address], [facility] 07/07/2017 22:46:39 07/29/2017 text/html This is follow up for this 21-year-old female. Today she reports that after her spinal tab she had a spinal headache and was given a blood patch. The headache did improve with the blood patch LP 07/09/17 opening pressure 19 cm She is still having some headaches daily. She does not have a day that she does not have a headache. She states she is not sleeping well. She is no longer taking acetazolamide; she did not see any benefit Prednisone did not give her benefit. Propranolol did not give benefit. She uses over the counter medications such as ibuprofen, tylenol, and excedrin without success. She does not have ringing or roaring in her ears. CANDICE DILLARD MD [address] [place] [address], [phone], [facility] 08/04/2017 08:27:44 OBGyn Episode No OBEpisode recorded.
--- OUTSIDE RECORDS SUMMARY | 2025-02-17 09:57 | XMS_ITS | Data Portability ---
Author Organization [place] [facility] [place] & [facility] AD[facility] Address [address] [place] [address] Care Team Providers Care Patient Support Partner Name Role Phone LEANN LOZANO Primary Care Provider [phone] Assessment Encounter Date Assessment Date Assessment LastModified by Organization Details LastModified Time 03/20/2024 03/20/2024 -she has tried and failed multiple medications for migraine w/out benefit and continues to have near daily migraine -Emgality subq inj -Zavzpret prn -Eletriptan prn -f/u with Psych for anxiety -f[place] [address] Not available 03/20/2024 11:57:43 06/19/2024 06/19/2024 -Topiramate titrate up to 50 mg BID -Ubrelvy, zavzpret prn -continue Qulipta, Emgality subq inj -IV migraine cocktail -consider Botox if no improvement -reviewed diagnosis and treatment plan [place] [address] Not available 06/19/2024 10:45:43 Plan of Treatment Reminders Order Date Submit Date Provider Last Modified By Organization Details Last Modified Time Details Appointments OV EST 15 2024 10:30A M Miguel Khalil M.D Not available Not available Not available OV EST 15 2025 03:00P M Alfredo Pena Jr, MD Not available Not available Not available Lab urinalys is, dipstick 2024 025 iisable [facility], [address] [place], [address], 01/31/2025 15:36:46 culture, urine 2024 [facility] (Laboratory), [address] [place], [address], 02/01/2025 04:27:12 chlamydi a trachoma tis + neisseri a gonorrho eae + trichomo elysia vaginali s DNA panel, LEBRON+prob e, urine [address] (Laboratory), [address] [place], [address], 02/07/2025 07:22:04 bacteria l vaginosi s + vaginiti s panel, vaginal [address] (Laboratory), [address] [place], [address], 02/07/2025 07:22:03 mycoplas ma genitali um DNA, QL, LEBRON+prob e, urine [address] (Laboratory), [address] [place], [address], 02/07/2025 07:22:04 Referral None recorded . Procedures None recorded . Surgeries None recorded . Imaging None recorded . Medication Orders Tucks (witshaggy derrick) 50 % topical pads 2024 CULVER [facility], [address] [place] [address], [id number], 02/14/2025 05:02:26 ascorbic acid (vitamin C) 500 mg tablet 2024 [facility], [address] [place] [address], [address], 01/31/2025 15:13:15 methenam ine hippurat e 1 gram tablet 2024 [facility], [address] [place] [address], [address], 01/31/2025 15:13:24 topirama te 50 mg tablet 2024 [facility], [address] [place], [address], 01/31/2025 15:13:36 clobetas ol 0.05 % scalp solution 2023 [facility], [address] [place], [address], 01/31/2025 15:13:17 tretinoi n 0.025 % topical cream 2023 [facility], [address] [place], [address], 01/31/2025 15:13:36 hydroxyz ine HCl 25 mg tablet 2023 [facility], [address] [place], [address], 01/31/2025 15:13:22 eletript an 40 mg tablet 2023 [facility], [address] [place], [address], 01/31/2025 15:13:18 Zavzpret 10 mg/actua tion nasal spray 2023 [facility], [address] [place], [address], 01/31/2025 15:13:42 Emgality Pen 120 mg/mL subcutan eous pen injector 2023 [facility], [address] [place], [address], 01/31/2025 15:13:20 Patient TargetsNo targets recorded. Patient InstructionsNo instructions recorded. Reason for Referral None Reported. Results Created Date Observation Date Name Description Value Unit Range Abnormal Flag Note LastModifiedBy Organization Detail LastModifiedTime 02/28/20 24 02/28/2024 CULTU RE URINE results LT 02-28 608 >100, 000 COL/M L Gram Negat dandy Rods LT 02-28 609 IDENT IFICA TION AND SUSCE PTIBI LITY TESTI NG PERFO RMED AT [facility] [address] [place] [address] Not Available [facility] (Lab Registration) [address] , [place], [address], 02/29/2024 06:09:41 02/28/2002/28/2024 CULTU RE URINE note Unles s other rivera noted testi ng perfo rmed at: [facility] [address] [place] [address] [phone] Calixto childers MD CLIA: [id number] Not Available [facility] (Lab Registration) [address] , [place], [address], 02/29/2024 06:09:41 02/28/20 24 02/28/2024 CULTU RE URINE culccur ===== ===== ===== ===== ===== ===== ===== ===== ===== ===== ===== ===== ===== ===== ===== ===== ===== ===== ===== ===== ===== ===== ===== ===== Speci men NO.: [id number] Exam Statu s: Final Proce dure: CULTU RE URINE ===== ===== ===== ===== ===== ===== ===== ===== ===== ===== ===== ===== ===== ===== ===== ===== ===== ===== ===== ===== ===== ===== ===== ===== Iso/R esult : 01 Esche delbert a coli Antim icrob ic/Do se ILIR Syste ilir Urine __ ___ ___ Aztre onam <=2 S Cipro floxa jeanne <=0.2 5 S ESBL NEG N Levof loxac in <=0.5 S Merop enem <=0.5 S Amika jeanne <=8 S Ampic illin <=4 S Amp/S ulbac menchaca 2/1 S Cefep ming <=1 S Cefta zidim e <=2 S Ceftr iaxon e <=1 S Ertap enem <=0.2 5 S Genta micin <=2 S Nitro furan toin <=16 S Piper acill in/Ta zo <=2/4 S Tetra cycli ne <=2 SX Tobra mycin <=2 S Trime th/Cutler lfa <=0.5 /9.5 S LT 02-28 608 >100, 000 COL/M L Gram Negat dandy Rods LT 02-28 609 IDENT IFICA TION AND SUSCE PTIBI LITY TESTI NG PERFO RMED AT [facility] [address] [place] [address] Not Available [facility] (Lab Registration) [address] , [place], [address], 03/01/2024 07:41:41 02/28/20 24 02/28/2024 CULTU RE URINE note Unles s other rivera noted testi ng perfo rmed at: [facility] [address] [place] [address] [phone] Calixto childers MD CLIA: [id number] Not Available [facility] (Lab Registration) [address] [place], [address], 03/01/2024 07:41:41 02/28/2002/28/2024 urina lysis , dipst ick Leukocytes (reference range) large Not Available [address] [place], [address], 02/28/2024 09:26:52 02/28/20 24 02/28/2024 urina lysis , dipst ick Nitrite (reference range:) negati ve Not Available [address] [place], [address], 02/28/2024 09:26:52 02/28/20 24 02/28/2024 urina lysis , dipst ick Urobilinogen (reference range) 0.2 Not Available [address] [place], [address], 02/28/2024 09:26:52 02/28/20 24 02/28/2024 urina lysis , dipst ick Protein (reference range) 30 Not Available [address] [place], [address], 02/28/2024 09:26:52 02/28/20 24 02/28/2024 urina lysis , dipst ick pH (reference range 5-8.5) 7.0 Not Available [address] [place], [address], 02/28/2024 09:26:52 02/28/20 24 02/28/2024 urina lysis , dipst ick Blood (reference range:) small Not Available [address] [place], [address], 02/28/2024 09:26:52 02/28/20 24 02/28/2024 urina lysis , dipst ick Specific Wilkinson (reference range) 1.025 Not Available [address] [place], [address], 02/28/2024 09:26:52 02/28/20 24 02/28/2024 urina lysis , dipst ick Ketone (reference range) negati ve Not Available [address] [place], [address], 02/28/2024 09:26:52 02/28/20 24 02/28/2024 urina lysis , dipst ick Bilirubin (reference range) negati ve Not Available [address] [place], [address], 02/28/2024 09:26:52 02/28/20 24 02/28/2024 urina lysis , dipst ick Glucose (reference range) negati ve Not Available [address] [place], [address], 02/28/2024 09:26:52 02/28/20 24 02/28/2024 urina lysis , dipst ick Color (reference range: yellow-brown ) Yellow Not Available [address] [place], [address], 02/28/2024 09:26:52 02/01/20 25 01/31/2025 CULTU RE URINE results LT 02-01 425 >100, 000 COL/M L Gram Negat dandy Rods LT 02-01 426 IDENT IFICA TION AND SUSCE PTIBI LITY TESTI NG PERFO RMED AT [facility] [address] [place] [address] Not Available [facility] (Lab Registration) [address] [place], [address], 02/01/2025 04:27:12 02/01/20 25 01/31/2025 CULTU RE URINE note Unles s other rivera noted testi ng perfo rmed at: [facility] [address] [place] [address] [phone] Calixto childers MD CLIA: [id number] Not Available [facility] (Lab Registration) [address], [place], [address], 02/01/2025 04:27:12 02/01/2001/31/2025 VAGIN ITIS PLUS (VG+) note Unles s other rivera noted testi ng perfo rmed at: [facility] [address] [place] [address] [phone] Calixto childers MD CLIA: [id number] Not Available [facility] (Lab Registration) [address] , [place], [address], 02/02/2025 06:12:15 02/01/2002/02/2025 VAGIN ITIS PLUS (VG+) atopobium vaginae High - 2 score delta Not Available [facility] (Lab Registration) [address], [place], [address], 02/02/2025 06:12:15 02/01/2002/02/2025 VAGIN ITIS PLUS (VG+) bvab 2 High - 2 score delta Not Available [facility] (Lab Registration) [address] , [place], [address], 02/02/2025 06:12:15 02/01/2002/02/2025 VAGIN ITIS PLUS (VG+) megasphaera 1 High - 2 score delta . Calcu late total score by lucina g the 3 indiv idual bacte rial vagin osis (BV) abigaile r score s toget her. Total score is inter prete d as follo ws: Total score 0-1: Indic ates the absen ce of BV. Total score 2: Indet ermin ate for BV. Addit ional clini marcie data shoul d be evalu ated to estab benije a diagn osis. Total score 3-6: Indic ates the prese nce of BV. Not Available [facility] (Lab Registration) [address], [place], [address], 02/02/2025 06:12:15 02/01/2002/02/2025 VAGIN ITIS PLUS (VG+) linda albicans, LEBRON Negati ve negati ve Not Available [facility] (Lab Registration) [address] [place], [address], 02/02/2025 06:12:15 02/01/2002/02/2025 VAGIN ITIS PLUS (VG+) linda glabrata, LEBRON Negati ve negati ve Not Available [facility] (Lab Registration) [address] [place], [address], 02/02/2025 06:12:15 02/01/2002/02/2025 VAGIN ITIS PLUS (VG+) trich vag by LEBRON Negati ve negati ve Not Available [facility] (Lab Registration) [address] [place], [address], 02/02/2025 06:12:15 02/01/2002/02/2025 VAGIN ITIS PLUS (VG+) chlamydia trachomatis, LEBRON Negati ve negati ve Not Available [facility] (Lab Registration) [address] [place], [address], 02/02/2025 06:12:15 02/01/2002/02/2025 VAGIN ITIS PLUS (VG+) neisseria gonorrhoeae, LEBRON Negati ve negati ve Perfo rmed at: =[facility] [place] [address] , [place] [address] Lab Direc tor: Nasir mosley MD, Phone : [phone] Not Available [facility] (Lab Registration) [address] [place], [address], 02/02/2025 06:12:15 02/01/2001/31/2025 CULTU RE URINE culccur ===== ===== ===== ===== ===== ===== ===== ===== ===== ===== ===== ===== ===== ===== ===== ===== ===== ===== ===== ===== ===== ===== ===== ===== Speci men NO.: [id number] Exam Statu s: Final Proce dure: [...] Tobra mycin <=2 S Trime th/Cutler lfa >38 R Sensi tivit y Requi red? YES LT 02-01 425 >100, 000 COL/M L Gram Negat dandy Rods LT 02-01 426 IDENT IFICA TION AND SUSCE PTIBI LITY TESTI NG PERFO RMED AT [facility] [address] [place] [address] Not Available [facility] (Lab Registration) [address] [place], [address], 02/02/2025 07:32:34 02/01/2001/31/2025 CULTU RE URINE note Unles s other rivera noted testi ng perfo rmed at: [facility] [address] [place] [address] [phone] Calixto childers MD CLIA: [id number] Not Available [facility] (Lab Registration) [address] [place], [address], 02/02/2025 07:32:34 02/01/2001/31/2025 MYCOP LASMA GENIT ALIUM LEBRON, UR note Unles s other rivera noted testi ng perfo rmed at: [facility] [address] [place] [phone] Calixto childers MD CLIA: [id number] Not Available [facility] (Lab Registration) [address] [place], [address], 02/03/2025 05:09:41 02/01/2002/03/2025 MYCOP LASMA GENIT ALIUM LEBRON, UR mycoplasma genitalium LEBRON Negati ve negati ve Perfo rmed at: =[facility] [place] [address] , [place] [address] Lab Direc tor: Nasir mosley MD, Phone : [phone] Not Available [facility] (Lab Registration) [address] [place], [address], 02/03/2025 05:09:41 02/01/20 25 01/31/2025 urina lysis , dipst ick Leukocytes (reference range) negati ve Not Available [address] [place], [address], 01/31/2025 15:24:48 02/01/20 25 01/31/2025 urina lysis , dipst ick Nitrite (reference range:) positi ve Not Available [address] [place], [address], 01/31/2025 15:24:48 02/01/2001/31/2025 urina lysis , dipst ick Urobilinogen (reference range) 0.2 Not Available [address] [place], [address], 01/31/2025 15:24:48 02/01/20 25 01/31/2025 urina lysis , dipst ick Protein (reference range) 100 Not Available [address] [place], [address], 01/31/2025 15:24:48 02/01/20 25 01/31/2025 urina lysis , dipst ick pH (reference range 5-8.5) 5.5 Not Available [address] [place], [address], 01/31/2025 15:24:48 02/01/20 25 01/31/2025 urina lysis , dipst ick Blood (reference range:) small Not Available [address] [place], [address], 01/31/2025 15:24:48 02/01/20 25 01/31/2025 urina lysis , dipst ick Specific Wilkinson (reference range) 1.030 Not Available [address] [place], [address], 01/31/2025 15:24:48 02/01/20 25 01/31/2025 urina lysis , dipst ick Ketone (reference range) negati ve Not Available [address] [place], [address], 01/31/2025 15:24:48 02/01/20 25 01/31/2025 urina lysis , dipst ick Bilirubin (reference range) negati ve Not Available [address] [place], [address], 01/31/2025 15:24:48 02/01/2001/31/2025 urina lysis , dipst ick Glucose (reference range) negati ve Not Available [address] [place], [address], 01/31/2025 15:24:48 02/01/2001/31/2025 urina lysis , dipst ick Color (reference range: yellow-brown ) Dark Yellow Not Available [address] [place], [address], 01/31/2025 15:24:48 Result Notes None recorded. Problems Name Problem SNOMED Code Status Onset Date Resolution Date Notes Provider Name and Address Organization Details Recorded Time Depressive disorder 46126096 Active 023 Mitzi Pardini null, [place] [facility] [place] 3 11:36:59 Renal abscess 1499742 Active 023 Solomon Miller null, [place] [facility] [place] 4 14:53:48 Recurrent genital herpes simplex 139344651 Active 024 Solomon Miller null, [place] [facility] [place] 4 14:53:43 Problem Notes None recorded. Procedures Surgical History Date Name Laterality Status Provider Name and Address Organization Details Recorded Time 09/14/19 24 Suture/Staple removal completed LEANN LOZANO NP [address], [place], [address], [facility] & [place] 09/14/2023 12:21:17 02/18/20 22 Date of Last Pap Smear completed Mitzi Crooks [facility] & [place] 08/17/2022 11:36:13 12/27/19 14 Cholecystectomy completed Deborah Narvaez [facility] & [place] 11/23/2023 09:25:30 Imaging Results None recorded. Procedure Notes None recorded. Medical Equipment None Reported. Allergies Allergen ID Allergen Name Allergen Category Reaction Reaction Severity Criticality Documentation Date Start Date Code Code System Note Provider Name and Address Organization Details Recorded Time 58114 azithromy jeanne medicatio n flushing moderate high 04/28/2022 29033 RxNorm Mitzi Crooks [facility], [facility] & [place] 3 15:26:01 80985 Macrobid medicatio n rash Not available low 06/25/20222022 49551 1 RxNorm Chandrika Haywood APRN [address] [place], [address] [place] [address] & [place] 3 14:31:22 Medications Name Sig Start Date [...] completed Not Available Not Available Not Available Tucks (witch derrick) 50 % topical pads Apply 1 pad 4 times a day by topical route as needed for 7 days. 02/14 completed Not Available Not Available Not Available tranexamic acid 650 mg tablet TAKE 2 TABLETS BY MOUTH THREE TIMES DAILY FOR 5 DAYS. REPEAT MONTHLY WITH MENSTRUAL CYCLE 01/31 completed Not Available Not Available Not Available Kath 0.35 mg tablet TAKE ONE TABLET BY [...] completed Not Available Not Available Not Available [facility] ODT 75 mg disintegrat ing tablet Take [...] mass index (BMI) Body weight Body temperature Systolic And Diastolic Provider Name and Address Organization Details Last Updated DateTime 06/19/2024 167.64 cm 22.9 kg/m2 93238.4 g 97.7 [degF] 140/90 mm[Hg] Delmi Guerra [place] [facility] [place] 10:32:32 Date Recorded Body height Body mass index (BMI) Body weight Body temperature Provider Name and Address Organization Details Last Updated DateTime 09/26/2024 167.64 cm 22.8 kg/m2 75262.52 g 97.6 [degF] Diana Stallings [facility] & [place] 09/26/2024 08:05:39 Date Recorded Body height Body mass index (BMI) Body weight Body temperature Oxygen saturation Oxygen saturation in Arterial blood by Pulse oximetry Heart rate Respiratory rate Systolic And Diastolic Provider Name and Address Organization Details Last Updated DateTime 5 167.64 cm 23.3 kg/m2 81124.0 2 g 98.1 [degF] 100 % 100 % 80 /min 16 /min 149/96 mm[Hg] Tanesha Isable [facility] & [place] 5 15:10:23 Date Recorded Body height Body mass index (BMI) Body weight Body temperature Oxygen saturation Oxygen saturation in Arterial blood by Pulse oximetry Heart rate Systolic And Diastolic Provider Name and Address Organization Details Last Updated DateTime 4 167.64 cm 22.9 kg/m2 20912.1 2 g 98 [degF] 96 % 96 % 58 /min 126/78 mm[Hg] Funmilayo Yeung [facility] & [place] 4 11:10:09 Date Recorded Body height Body mass index (BMI) Body weight Body temperature Systolic And Diastolic Provider Name and Address Organization Details Last Updated DateTime 03/27/2024 167.64 cm 22.4 kg/m2 32622.3 4 g 98.2 [degF] 111/80 mm[Hg] Titus Huff [facility] & [place] 4 09:16:54 Social History Question Answer Notes LastModified by Organizat ion Details LastModified Time Tobacco Smoking Status Never Smoker Mitziroberto [facility] & [place] 04/28/2022 15:26:21 Do You Have An Advance Directive? No Information n ot available 08/17/2022 Do You Wear A Helmet When Biking? Yes [email or web address] Information not available 07/01/2023 Are You Blind Or Do You Have Difficulty Seeing? No Information n ot available 08/17/2022 Is Blood Transfusion Acceptable In An Emergency? No [email or web address] Information not available 07/01/2023 What Is Your Level Of Caffeine Consumption? Occasional [email or web address] Information not available 02/10/2023 In The 14 Days Before Symptom Onset, Have You Had Close Contact With A Laboratory-confirm ed COVID-19 While That Case Was Ill? No [email or web address] Information n ot available 07/01/2023 In The 14 Days Before Symptom Onset, Have You Had Close Contact With A Person Who Is Under Investigation For COVID-19 While That Person Was Ill? No [email or web address] Information not available 07/01/2023 Have You Been To An Area Known To Be High Risk For COVID-19? No [email or web address] Information not available 07/01/2023 Are You Deaf Or Do You Have Serious Difficulty Hearing? No [email or web address] Information not available 07/01/2023 What Type Of Diet Are You Following? REGULAR [email or web address] Information n ot available 07/01/2023 Have You Processed Blood Or Body Fluids From An Ebola Virus Disease Patient Without Appropriate PPE? No [email or web address] Information not available 07/01/2023 Do You Reside In Or Have You Traveled To An Area Where Ebola Virus Transmission Is Active? No [email or web address] Information not available 07/01/2023 Have There Been Any Changes To Your Family Or Social Situation? No [email or web address] Information no t available 07/01/2023 What Is The Fluoride Status Of Your Home? Unknown [email or web address] Information not available 07/01/2023 Are There Any Guns Present In Your Home? No [email or web address] Information not available 07/01/2023 Have You Recently Or Are You Planning To Travel To An Area With Zika Virus? No [email or web address] Information not available 07/01/2023 Do You Use Insect Repellent Routinely? Yes [email or web address] Information not available 07/01/2023 Do You Feel Safe At Home? Yes [email or web address] Information not available 07/01/2023 Do You Have A Medical Power Of Infection Preventionist? No [email or web address] Information not available 07/01/2023 What Was The Date Of Your Most Recent Tobacco Screening? 01/31/2025 [email or web address] Information not available 01/31/2025 Do You Have Any Pets? No [email or web address] Information not available 07/01/2023 What Is Your Relationship Status? Unknown [email or web address] Information not available 07/01/2023 Do You Use Your Seat Belt Or Car Seat Routinely? Yes [email or web address] Information not available 07/01/2023 Do You Have Smoke And Carbon Monoxide Detectors In Your Home? Yes [email or web address] Information not available 07/01/2023 Are You Passively Exposed To Smoke? No Information no t available 08/17/2022 How Much Tobacco Do You Smoke? No Information not available 08/17/2022 Do You Use Sunscreen Routinely? Yes [email or web address] Information not available 07/01/2023 Has Tobacco Cessation Counseling Been Provided? No [email or web address] Information not available 02/10/2023 Do You Have Difficulty Walking Or Climbing Stairs? No [email or web address] Information not available 07/01/2023 Are You Currently In School? No [email or web address] Information not available 07/01/2023 Sex: Female Functional Status Question Answer Note LastModified by Organizat ion Details LastModified Time Do you use any illicit or recreational drugs? No Information not available 04/28/2022 Do you or have you ever used any other forms of tobacco or nicotine? No [email or web address] Information not available 02/10/2023 What is your level of alcohol consumption? None Information not available 08/17/2022 Are you currently employed? Yes [email or web address] Information not available 07/01/2023 Do you have transportation difficulties? No Information not available 07/01/2023 Are you able to walk independently without assistance or assistive devices? YESWOREST [email or web address] Information not available 07/01/2023 Do you have difficulty doing errands alone? No [email or web address] Information not available 07/01/2023 Are you able to care for yourself independently? Yes [email or web address] Information not available 07/01/2023 Do you have difficulty dressing, bathing, grooming, or toileting? No [email or web address] Information not available 07/01/2023 What is your exercise level? Moderate Information not available 08/17/2022 Mental Status Question Answer Note LastModified by Organizat ion Details LastModified Time Do you feel stressed (tense, restless, nervous, or anxious, or unable to sleep at night)? [id number] Information not available 08/17/2022 Do you have difficulty concentrating, remembering or making decisions? No [email or web address] Information no t available 07/01/2023 Family History Relationship Description Onset Age of this Age Resolved Age Notes LastModified by Organization Details LastModified Time Sister Headache 1 Not available 11/23/2023 09:22:03 Maternal Grandfather Coronary arterioscler osis [email or web address] Not available 09/26 08:03:35 Maternal Grandfather Hypertensive disorder [email or web address] Not available 2023 09:22:58 Unspecified Relation Diabetes mellitus Stuartn al Grandp arent [email or web address] Not available 09/26/2024 08:03:35 Unspecified Relation Kidney disease Patern al grandp arent Not available 11/23/2023 09:24:24 Mother Hypertensive disorder [email or web address] Not available 2023 09:24:34 Mother Heart disease [email or web address] Not available 2023 09:25:07 Mother Diabetes mellitus [email or web address] Not available 09/26 08:03:35 Medical History Condition [...] Mitzi Pard[place] 04/28/2022 15:25:33 Hib, unspecified formulation 8 completed Mitz[place] 04/28/2022 15:25:33 DTaP, unspecified formulation 9 completed Mitz[place] 04/28/2022 15:25:33 HPV, quadrivalent 0 completed Mitzi [place] 04/28/2022 15:25:33 Hib, unspecified formulation 8 completed Mitz[place] 04/28/2022 15:25:33 HPV, quadrivalent 1 completed [place]itz[place] 04/28/2022 15:25:33 MMR 2 completed Mitz[place] 04/28/2022 15:25:33 OPV, trivalent 8 completed Mitz[place] 04/28/2022 15:25:34 Hib (PRP-OMP) 9 completed Mitzi [place] & [place] 04/28/2022 15:25:34 DTaP, unspecified formulation 9 completed Mitz[place] 04/28/2022 15:25:34 OPV, trivalent 8 completed Mitz[place] 04/28/2022 15:25:34 DTaP, unspecified formulation 2 completed Mitzi [place] 04/28/2022 15:25:34 DTaP, unspecified formulation 8 completed Mitz[place] 04/28/2022 15:25:34 Tdap 0 completed Mitz[place] 04/28/2022 15:25:34 meningococcal MCV4, unspecified formulation 0 completed [place]itz[place] 04/28/2022 15:25:34 OPV, trivalent 9 completed [place]itz[place] 04/28/2022 15:25:34 DTaP, unspecified formulation 8 completed Mitz[place] [facility] & [place] 04/28/2022 15:25:34 HPV, quadrivalent 0 completed Mitz[place] [facility] & [place] 04/28/2022 15:25:34 Hep A, ped/adol, 2 dose 1 completed Mitz[place] [facility] & [place] 04/28/2022 15:25:34 varicella 9 completed Mitz[place] [facility] & [place] 04/28/2022 15:25:34 IPV 2 completed Mitz[place] [facility] & [place] 04/28/2022 15:25:34 Hep B, adolescent or pediatric 8 completed Mitz[place] [facility] & [place] 04/28/2022 15:25:34 MMR 9 completed Mitz[place] [facility] & [place] 04/28/2022 15:25:34 Influenza, split virus, quadrivalent, preservative 5 completed Titus Huff null[place] [facility] & [place] 09/14/2023 11:45:08 Tdap 4 completed Deborah Narvae[place] [facility] & [place] 11/30/2023 15:43:02 Influenza, split virus, trivalent, PF 6 completed Titus Huff [place] [facility] & [place] 09/14/2023 11:45:08 HPV9 5 completed Not Available [facility] 01/31/2025 15:02:20 Past Encounters Encounter ID Performer Location Encounter Start Date Encounter Closed Date Diagnosis/Indication Diagnosis SNOMED-CT Code Diagnosis ICD10 Code Diagnosis IMO Codes Diagnosis Note [id number] Rod Quiroz MD [address] [place] [address] 04/28/2022 15:02:32 04/28/2022 15:43:17 Increased frequency of urination 398509852 R35.0 will treat with antibiotic s and diflucan [id number] DARRIN [place] [address] [address] 06/19/2022 12:17:04 06/19/2022 13:47:44 Mixed anxiety and depressive disorder 360326849 F41.8 F41.0 Patient identified triggers for anxiety and impact of anxious thinking on functionin g. Discussed strategies to regulate symptoms and need for compliance with treatment. follow up in 6 weeks call clinic sooner if symptoms worsen or s/e of medication s. [id number] DARRIN [place] [address] [address] 06/24/2022 15:51:43 06/29/2022 14:19:13 Acute cystitis 80280911 N30.01 Patient presents with symptoms of UTI. Results of dipstick were positive for UTI. Advised to drink clear fluids, reduce sexual activity, Tylenol for pain and take prescribed medication s as instructed . Patient encouraged to follow up within 1 week if not improving. [id number] DARRIN [place]use[place] [address] [address] 07/20/2022 14:36:40 07/20/2022 16:45:12 Mixed anxiety and depressive disorder 586837843 F41.8 F41.0 Patient identified triggers for anxiety and impact of anxious thinking on functionin g. Discussed strategies to regulate symptoms and need for compliance with treatment. follow up in 6 weeks call clinic sooner if symptoms worsen or s/e of medication s. [id number] DARRIN [place]use[place] [address] [address] 07/31/2022 09:40:43 07/31/2022 10:09:20 Mixed anxiety and depressive disorder 641123787 F41.8 F41.0 Patient identified triggers for anxiety and impact of anxious thinking on functionin g. Discussed strategies to regulate symptoms and need for compliance with treatment. follow up in 6 weeks call clinic sooner if symptoms worsen or s/e of medication s. continue current therapy Gynecologi c examination 65856847 Z01.419 Headache 80964247 R51.9 encouraged to take advil dual action with tylenol and ibuprofen to aid in symptomsen couraged to drink plenty of water. [id number] Chandrika Haywood APRN [facility] [address] [place] [address] 08/17/2022 11:30:50 08/17/2022 12:02:28 Vaginal discharge 783607419 N89.8 repeat swab. Mixed anxi ety and depressive disorder 132311225 F41.8 F41.0 Patient identified triggers for anxiety and impact of anxious thinking on functionin g. Discussed strategies to regulate symptoms and need for compliance with treatment. follow up in 6 weeks call clinic sooner if symptoms worsen or s/e of medication s. continue current therapy [id number] LEANN LOZANO NP [address] [place] [address] 08/24/2022 14:55:33 08/24/2022 15:56:40 Vaginitis 67524540 N76.0 avoid douchingco tton underweara void scented products Vaginal irritation 02582 6004 N89.8 fissure presentlub ricationme nstrual product irritation advised to avoid sexual intercours e until healed [id number] LEANN LOZANO NP [address] [place] [address] 08/31/2022 14:38:48 08/31/2022 15:58:44 Recurrent urinary tract infection 855120379 N39.0 awaiting urine culturepus h fluidsavoi d douchingwe ar cotton underwear Vaginal pain 88691129 R1 0.2 symptomati c management tylenol, motrin, sitz bath, cool compress Vaginal lesion 084593580 N94.89 unable to obtain specimen due to no fluid in vesicular lesionsdis cussed medication with pt Vaginitis 54241337 N76.0 awaiting testing swab [id number] Chandrika Haywood APRN [address] [place] [address] 11/27/2022 10:29:08 11/27/2022 11:18:38 Renal abscess 7628883 N15.1 making referral to urology Follow-up visit 81363216 9 Z09 N10 updating blood workeducat ed on warning signs and symptoms of UTIsincrea se water intakemoni tor for worsening symptoms Mixed anxi ety and depressive disorder 422873564 F41.8 F41.0 Patient identified triggers for anxiety and impact of anxious thinking on functionin g. Discussed strategies to regulate symptoms and need for compliance with treatment. making referral to Kath Martinez [employer] TECH INSTRUCTOR call clinic sooner if symptoms worsen or s/e of medication s. continue current therapy [id number] KATH MARTINEZ, PMHNRayshawn Camacho Therapeut ic Intervent ions at [address] [place] [address] 11/27/2022 10:59:08 11/27/2022 12:15:29 [id number] Sky Bernardo MD [address] [place] [address] 02/10/2023 14:14:54 02/11/2023 13:34:34 Low back pain 941153890 M54.50 urinalysis shows trace blood and leukocytes . Specific gravity is elevated at greater than 1.030Becau se of recent history of abscess and acuteness of symptoms I recommend strongly she report to emergency room for more thorough evaluation . Family members present and is agreeable Renal abscess 9172608 N1 5.1 History of abscess hospitaliz ed at [facility] in [place] 1 month and half ago [id number] Rod Quiroz MD [address] [place] [address] 03/17/2023 11:37:06 03/17/2023 12:12:22 Nausea and vomiting 84857204 R11.2 will treat patient empiricall y. Should her symptoms not improve she is been advised to go to the emergency department where she may require blood work and imaging studies. Depressive disorder 7445 6216 F32.A patient reports no improvemen t with Vraylar. She also reports that she has developed a tremor since starting the medication . We will stop that medicine and start her on Zoloft. [id number] Sky Bernardo MD [address] [place] [address] 04/16/2023 09:49:02 04/16/2023 12:38:29 Dysuria 87151040 R30.0 Possible 49476 9005 Z32.00 [id number] Rod Quiroz MD [address] [place] [address] 04/29/2023 09:35:36 04/29/2023 09:51:04 Abdominal pain 76122457 R10.9 Acute urin eula tract infection 768491745 N39.0 pt to continue with abs that were prescribed . Low back pain 372512824 M54.50 Abnormal u terine bleeding 3222522058 9100 N93.9 pt needs to see her dental ceramist helper. she states that she will call for an appt Depressive disorder 1145 9006 F32.A patient reports improvemen t in her mood with her sertraline . She would like an increase in dose. [id number] Rod Quiroz MD [address] [place] [address] 05/14/2023 10:43:04 05/19/2023 08:25:27 Dysuria 00761663 R30.0 [id number] LEANN LOZANO NP [address] [place] [address] 05/31/2023 08:02:55 05/31/2023 10:47:45 Nausea and vomiting 20268892 R11.2 bland dietdiscus sed viralsympt omatic management push fluidsER if any urgent signs or symptoms arise Lumbar radiculopathy 128 744738 M54.16 After reviewing the history, physical examinatio n a diagnosis of low back pain was made. With this diagnosis no structural abnormalit y could be found to explain the pain. Its origin may be at the muscular, deep soft tissue (ligamento us, tendinous) or the discal level (anulus tear). Treatment will consist of a combinatio n of any or all of the following modalities : non-steroi lulú anti-infla mmatory medication s when appropriat e, muscle relaxants, activity modificati on, and/or physical therapy. [id number] LEANN LOZANO NP [address] [place] [address] 05/18/2023 11:19:40 05/19/2023 14:23:23 Dysuria 52053201 R30.0 [id number] Alfredo Pena Jr, MD [facility] Urology [address] [address] 07/09/2023 10:47:31 07/09/2023 12:01:07 Recurrent urinary tract infection 963546619 N39.0 27-year-ol d white female with a six-month history of recurrent urinary tract infections . She states that she has had urinary tract infections since being diagnosed with a renal abscess in 6 months ago. She states he drinks least 60 oz of fluid a day. Her bladder scan today shows a 0 cc residual. She denies any associatio n with intercours e. We discussed treatment options. I am going to place her on methenamin e plus vitamin-C to help acidify her urine and prevent bacterial growth. She is continued to drink at least 60 oz of fluid per day. [id number] Sky Bernardo MD [address] [place] [address] 05/27/2023 10:33:29 05/27/2023 12:49:32 Candidiasis of vagina 58418546 B37.31 exam is consistent with secondary yeast infection patient was recently on antibiotic s. Recurrent genital herpes simplex 428558305 A60.00 Patient has a history of recurrent outbreaks. She is presently on valacyclov ir. It appears she has a healing lesion posterior edge of the introitus. Finish. [id number] Rod Quiroz MD [address] [place] [address] 07/01/2023 14:41:00 07/01/2023 15:20:54 Sore throat 424869455 J02.9 warm salt water garglescha nge toothbrush hydrations ymptomatic management f/u if symptoms persist or worsen Viral uppe r respiratory tract infection 158196554 J06.9 Patient presented with symptoms of upper respirator y infection. Advised to drink plenty of fluids, run a cool-mist humidifier in room at night, gargle salt water for sore throat, and get plenty of rest. Patient should avoid over-exert ion and reduce exposure to irritants such as smoke, cold, dry air, and dust. Treatment currently involves symptomati c relief. Patient may take acetaminop hen or ibuprofen as directed to reduce fever and body aches. Antihistam ine and decongesta nt usage was discussed and recommenda tions made. Patient understood these instructio ns and will follow up in the office in 10 days to 2 weeks if symptoms not improving. [id number] LEANN LOZANO NP [address] [place] [address] 09/14/2023 11:37:56 09/15/2023 08:34:50 Removal of suture 95942603 Z48.02 3 sutures removed without complicati on Laceration of left thumb 5119222845 3985732 S61.012D well approximat ed but with signs of infection Localized infection of skin AND/OR subcutaneous tissue 285681093 L08.9 keep clean and drymedicat ion as prescribed f/u if symptoms persist or worsen [id number] LEANN LOZANO NP [address] [place] [address] 10/06/2023 08:50:51 10/06/2023 10:46:24 Fatigue 29148032 R53.83 Awaiting lab worksleep hygiene, stress management , healthy lifestyle including diet and exercise Migraine 52373303 G43.90 9 not controlled needs to restart medication sDiscussed orders with patient. [id number] Rod Quiroz MD [address] [place] [address] 11/29/2023 10:29:57 11/29/2023 14:08:16 Mixed anxiety and depressive disorder 562021265 F41.8 lab work all completed end of September and normaldeni es sI/HIstart Lexapro therapy, educated on side effects, [facility] support system with her mother Syncope and collapse 309 202624 R55 due to hx of seizures referral to neurology placed for work upER if any urgent signs or symptoms arise discussed intake/sym ptom log to help with pinpointin g cause Recurrent cystitis 35894 0999 N30.90 [id number] LEANN LOZANO NP [address] [place] [address] 01/17/2024 11:43:39 01/17/2024 12:36:28 Dysuria 17286997 R30.0 UA negtaive; Push fluids especially water. If no better in 48-72 hours or if you develop abdominal or back pain, with fever chills nausea or vomiting come back or go to the emergency room immediatel y Migraine 53114588 G43.90 9 discussed calling neurologis tdenies worst headache of her lifediscus sed triptan therapyavo id OTC medication s to prevent rebound Pain in pelvis 78254940 R10.2 awaiting US Constipation 35740391 K5 9.00 discuss medication s with neurologyb oth qulipta daily and nurtec every other day, could be contributi ng to her worsening constipati onhydratio n, stool softener Gastroesop hageal reflux disease without esophagitis 452434128 K21.9 Avoid spicy foods, carbonated beverages, lying down 30 minutes to 1 hour after eatingEat smaller portion sizesTake medication s as prescribed 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 0614523034 57931 G56.02 brace given in clinic to wear at night for left wristreeva luate in 2 to 4 weeks to see if any progress and send to ortho if persists [id number] Miguel Khalil M.D [facility] Neurology [place] [address] [place] [address] 12/20/2023 10:06:31 12/20/2023 11:06:36 Vasovagal syncope 636343208 R55 Refractory migraine without aura 281454569 G43.870 [id number] LEANN LOZANO NP [facility] [address] [place] [address] 01/31/2024 11:38:37 01/31/2024 12:12:56 Mixed anxiety and depressive disorder 292156752 F41.8 lab work all completed end of September and normaldeni es SI/HItried and failed Lexapro therapymot her on venlafaxin e and Vraylar, discussed starting venlafaxin e and, if makes her sleepy she can take in the evening, follow-up in 4-6 weeks, discussed recommenda tion for also doing therapy. [id number] LEANN LOZANO NP [address] [place] [address] 02/28/2024 09:05:46 02/28/2024 09:47:57 Dysuria 79222404 R30.0 Office UA suggesting UTI, urine sent for culture and office will call after culture received. Take all medicines prescribed for you for the allotted time period. Push fluids especially water. If no better in 48-72 hours or if you develop abdominal or back pain, with fever chills nausea or vomiting come back or go to the emergency room immediatel y Mixed anxi ety and depressive disorder 440345081 F41.8 Denies SI/HItried and failed venlafaxin e and sertraline ; sertraline was tried 1st, venlafaxin e was tried 2nd due to her mother taking and doing well with. Mother also takes Vraylar will try for ptrecommen d psych to help manage medication s and consider therapyhas good support system Acute cystitis 45512977 N30.00 medication as prescribed Constipation 19163099 K5 9.00 currently taking docusate therapy, discussed MiraLax, discussed dietary changes, follow-up if symptoms persist or worsen [id number] LEANN LOZANO NP [address] [place] [address] 03/27/2024 09:04:22 03/27/2024 09:48:34 Anxiety 40097213 F41.9 Denies SI/HIanxie ty and depression , PHQ-9 is 11. Tried and failed Vraylar, sertraline , Lexapro, venlafaxin ewill prescribe hydroxyzin e to use as needed for acute anxiety attacks until her appointmen t with psych next weekverbal izes good support system Atopic sarath matitis of scalp 044967140 L20.9 discussed treatment regimen belowfollo w-up if symptoms persist or worsen consider dermatolog y referral Lesion of skin of face 0854482702 06 L98.9 discuss use of topical as below, educated on side effects and how to apply, start with weekly and then increase to every other day as she tolerates until lesion is resolvedf/ u if symptoms persist or worsen consider dermatolog y referral [id number] Miguel Khalil M.D [facility] Neurology [address] [place] [address] 03/20/2024 10:51:46 03/20/2024 12:03:05 Chronic intractable migraine without aura 2912544030 84683 G43.711 Generalize d anxiety disorder 81905969 F41.1 [id number] LOBO CAMPBELL Therapeut ic Intervent ions at [address] [place] [address] 05/12/2024 10:30:55 05/12/2024 12:12:37 [id number] Miguel Khalil M.D [facility] Neurology [facility] [address] [facility] [address] [place] [address] 06/19/2024 10:23:57 06/19/2024 10:49:11 Chronic intractable migraine without aura 3614464553 68023 G43.752 [id number] LOBO CAMPBELL Therapeut ic Intervent ions at [address] [place] [address] 06/09/2024 08:57:55 06/09/2024 09:37:57 [id number] LOBO CAMPBELL Therapeut ic Intervent ions at [address] [place] [address] 08/03/2024 09:30:12 08/03/2024 12:52:54 [id number] LOBO CAMPBELL Therapeut ic Intervent ions at [address] [place] [address] 09/07/2024 09:23:38 09/08/2024 08:13:59 [id number] Alfredo Pena Jr, MD [facility] Urology [address] [facility] [place] [address] 09/26/2024 08:03:06 09/26/2024 08:20:49 Recurrent urinary tract infection 479198187 N39.0 [id number] patient was history of recurrent urinary tract infections . She denies any recurrent urinary tract infections over the past year. She continues on a course of methenamin e plus vitamin-C. She states she was compliant with drinking at least 60 oz of fluid per day. We will refill her meds follow up 1 year. [id number] LEANN LOZANO NP [facility] [address] [place] [address] 01/31/2025 15:00:53 01/31/2025 16:00:45 Dysuria 01290746 R30.0 21460 Office UA suggesting UTI, urine sent for culture and office will call after culture received. Take all medicines prescribed for you for the allotted time period. Push fluids especially water. If no better in 48-72 hours or if you develop abdominal or back pain, with fever chills nausea or vomiting come back or go to the emergency room immediatel y Acute vaginitis 21714395 N76.0 42284 awaiting testing swabtucks pads to help with irritation Health Concerns Section Related Observation LastModified by Organization Detai ls LastModified Time None Recorded Concern Status LastModified by Organization Details LastModified Time None Recorded Advance Directives Directive N: Payers Insurance Date Sequence Insurance Name Policy Number Policy Gordon Covered Member ID Gordon Member ID Guarantor Name 01/30/2025 1 [facility] (MEDICAID HMO) [id number] Lauren Mcneill [id number] Lauren Mcneill Notes Date Note Type Note Provider Name and Address Organization Details Recorded Time 03/20/2024 text/html Ms. Lauren Mcneill is a 28 y/o F who presents for f/u today. Since last visit she has been having severe headaches and required two IV migraine cocktails. She currently has had a headache for four days and is having difficulty sleeping as a result. Qulipta and Ubrelvy have not been helpful.Is also having a lot of difficulties with anxiety. Miguel Khalil M.D [address] [place] [address], [address], [place], [address], [place] 03/20/2024 11:58:49 03/27/2024 text/html ROS as noted in the HPI 28-year-old female who presents for follow-up. She is awaiting appointment with psych that she has on April 04 but continues to feel anxiety Attacks. She denies any SI/HI. Tried and failed Lexapro vraylar venlafaxine and sertraline. Had side effects with all of them. Also complains of dry scalp. Has tried multiple lvpq-njs-nsdginh shampoos without change. Since last office visit she went to the hospital due to heavy menstrual cycle, ultrasound was completed and advised a polyp is present she has an appointment with bead flipper today. Also complains of a rough lesion on her face that will come and go. LEANN LOZANO NP [address] [place] [address], [phone], [facility] 03/27/2024 10:36:40 06/19/2024 text/html Headache - NeurologyReported by Patient MsBetty Mcneill is a 28 y/o F who presents for f/u today. Recently she has had as severe migraine headache lasting ten days. She is having difficulty sleeping as a result. Qulipta and Emgality subq were helpful until the recent headache.Ubrelvy has not been helpful.Is also having a lot of difficulties with anxiety. Miguel Khalil M.D [address] [place] [address], [address], [place], [address], [facility] & [place] 06/19/2024 10:48:42 09/26/2024 text/html ROS as noted in the HPI Patient is a 28-year-old white female with history of recurrent urinary tract infections. She returns for yearly follow-up. She denies any urinary tract infections over past year. Last year we had discussed causes of recurrent urinary tract infections. Her BladderScan was 0 at that time. We placed her on a course of methenamine plus vitamin-C for acidification and encouraged her to drink at least 60 oz of fluid per day. She states she has been compliant his regimen.Her past medical history is significant for recent diagnosis of some atypical cells of the cervix and she underwent a LEEP procedure. She was also told she had polycystic ovaries. Alfredo Pena Jr, MD [address] [place] [address], [address], [place], [address], [facility] & [place] 09/26/2024 08:28:02 01/31/2025 text/html ROS as noted in the [...] issues with bowel movements. LEANN LOZANO NP [address] [place] [address], [phone], [facility] 02/01/2025 17:07:14 OBGyn Episode No OBEpisode recorded.
--- OUTSIDE RECORDS SUMMARY | 2025-02-17 09:57 | XMS_ITS | Clinical Summary ---
Author Organization [facility] Address [address] [place] [address] Care Team Providers Care In Home Caregiver Name Role Phone Pcp, None Primary Care Provider Unavailabl e Social History Tobacco Use Types Packs/Day Years Used Date Smoking Tobacco: Never Assessed Comments Unknown Sex and Gender Information Value Date Recorded Sex Assigned at Not on file Legal Sex Female 7:07 PM EDT Gender Identity Not on file Sexual Orientation Not on file Plan of Treatment Health Maintenance Due Date Last Done Comments HIV Screening 1997 Hepatitis C Screening 1997 MMR Vaccines (1 of 1 - Stand yennifer series) 1998 Varicella Vaccines (1 of 2 - 13+ 2-dose series) 2010 Hepatitis B Screening 11/23/2015 DTaP/Tdap/Td Vaccines (1 - Tdap) 2016 Hepatitis B Vaccines (1 of 3 - 19+ 3-dose series) 2016 Pap Smear 2018 Depression Risk Screening 04/12/2024 SDOH Screening 04/12/2024 HPV Vaccines (1 - 3-dose SCD M series) 2024 COVID-19 Vaccine (2024-2 6 season) 2024 Influenza Vaccine (#1) 2024 Zoster Vaccines (1 of 2) 11/23/2047 HIB Vaccines Aged Out No longer eligi ble based on patient's age to complete this topic Hepatitis A Vaccines Aged Out No long er eligible based on patient's age to complete this topic IPV Vaccines Aged Out No longer eligi ble based on patient's age to complete this topic Meningococcal B Vaccine Aged Out No l onger eligible based on patient's age to complete this topic Meningococcal Vaccine Aged Out No blaze megan eligible based on patient's age to complete this topic Pneumococcal Vaccine Aged Out No long er eligible based on patient's age to complete this topic Rotavirus Vaccines Aged Out No longer eligible based on patient's age to complete this topic Insurance [place] [address] Care Teams In Home Caregiver Relationship Specialty Start Date End Date Pcp, None PCP - General 06/13/20
--- NOTE | 2025-02-17 10:02 | ED_ITS ---
Discharge Plan Disposition Patient Disposition: Home, Self-Care Prescriptions Prescriptions: No Action Flintstones Complete Tablet,Chewable 1 tab PO .two tablets a day doxylamine-pyridoxine (vit B6) [Diclegis] 10-10 mg tablet,delayed release (DR/EC) 1 tab PO BID Qty: 30 3RF oxcarbazepine 150 mg tablet extended release 24 hr 150 mg PO DAILY Qty: 30 2RF ciprofloxacin HCl 500 mg tablet 500 mg PO BID Qty: 20 0RF cephalexin 500 mg capsule 500 mg PO TID 7 Days Qty: 21 0RF Referrals Follow up/Referrals: Horacio Limon APRN [Referring, Medical] - See instructions Activity Restrictions/Add. Instructions Additional Instructions/Restrictions: At this time it was felt you are safe to be discharged home. If new or worsening symptoms please do not hesitate to return the emergency department. For pain please take Tylenol and ibuprofen as needed every 6 hours. Please call and schedule appoint with Dr. Limon's office as soon as you are able. Clinical Impressions Clinical Impression: Fall, Arm pain Print Language Print Language: Dominican Discharge ED Provider: Boris Andino General Adult HPI General Chief complaint: Extremity Injury, Upper Stated complaint: AO 02/17 Left elbow pain Time Seen by Provider: 02/17/25 09:48 Mode of Arrival: Ambulatory Source of Information: Patient Description of Symptoms (Recalled from ER Triage Doc. by RN): pt fell going up her stairs this morning. complains of left elbow pain that radiates fown her arm and her fingers are going numb. happened about 0630. no thinners History of Present Illness HPI narrative: Patient is 29-year-old female right hand dominant who presents emergency department for evaluation of traumatic injury to her left elbow. Patient fell going up the stairs striking her left elbow with significant pain around her elbow and adjacent areas with affected range of motion and shooting pain down her arm. No other trauma. No other acute complaints at this time. Please note that above description of symptoms, in this electronic medical record under categorization of recalled from ER triage doctor by RN are reflective of an initial nursing assessment, however, is not reflective of my full history and physical exam that was personally taken and clarified. Consequentially, this preceding description of symptoms, which may include the patient's categorized chief complaint in the EMR, do not reflect my personal clinical impression, and the ultimate description of history of present illness and patient stated complaints should be deferred to this section of the note. Unless stated otherwise or congruent with this section of the note, additional signs, symptoms, or incongruence should be interpreted as inaccurate with my clinical impression. Related Data Home Medications ?Medication ?Instructions ?Recorded ?Confirmed pediatric multivitamin no.76 1 tab PO .two tablets a d ay 06/15/19 06/15/19 (Flintstones Complete chewable tablet) Previous Rx's ?Medication ?Instructions ?Recorded doxylamine 10 mg-pyridoxine (vit 1 tab PO BID #30 tabs 06/20/19 B6) 10 mg tablet,delayed release (Diclegis) oxcarbazepine 150 mg 150 mg PO DAILY #30 tabs tablet,extended release 24 hr ciprofloxacin HCl 500 mg tablet 500 mg PO BID #20 tabs 09/19/22 cephalexin 500 mg capsule 500 mg PO TID 7 days #21 cap s 09/04/23 Allergies Allergy/AdvReac Type Severity Reaction Status Date / Time erythromycin base Allergy Unknown BODY TURNS Verified 06/15/19 09:41 (ERYTHROMYCIN BASE) [facility] Disclaimer: The information contained in this section may have been updated after the patient was seen, as this information can be updated by other users. Social History Smoking Status: Never smoker alcohol intake: never current occupational status: unemployed Travel in the last 8 weeks?: None Have you lived/traveled outside [place] in past 30 days?: No Contact w/someone who lives/traveled outside US past 30 days?: No Exposure to someone with infectious disease in past 14 days?: No Do you have a fever (greater than 100.4 F or 38 C)?: No Have you tested positive for COVID-19?: No Exposed to someone with COVID-19 in past 14 days?: No Do you have a sore throat?: No Do you have a cough?: No Do you have any weakness?: No Do you have any diarrhea?: No Are you experiencing any unusual bleeding?: No Do you have any muscle aches/pain?: No Do you have any abdominal pain?: No Are you experiencing loss of taste or smell?: No Other Medical History Have you received the Flu Vaccine for this season: Yes Have you received the Pneumonia Vaccine: No ROS Obtained: Yes Systems reviewed as appropriate & no additional complaints except as documented Physical Exam General General appearance: alert and in no apparent distress Head Head exam: atraumatic and normocephalic Eye Eye exam: Present PERRL and EOMI ENT ENT exam: Present mucous membranes moist Neck Neck exam: Present normal inspection Chest Chest inspection: Present normal inspection and symmetric chest wall rise Respiratory Respiratory exam: Absent respiratory distress Cardiovascular Cardiovascular exam: Present regular rate Extremities Exam Extremities exam: Present other (Swelling about the left elbow, no obvious deformity, limited active and passive range of motion secondary to pain at the elbow and tenderness along the elbow and adjacent forearm and upper arm. Distally palpable radial pulse.) Neurological Exam Neurological exam: Present alert Psychiatric Psychiatric exam: Present normal affect Skin Skin exam: Present warm and dry Medical Decision Making Medical Records Screening: Per USPSTF and CDC recommendations, given the prevalence of disease in our region, it is our hospital?s policy to screen for HIV and viral Hepatitis for all patients aged 18 and over and those with ongoing risk factors. Jassi Inquiry Pt receiving controlled substance: No Vital Signs: 02/17/25 09:46 Temperature 98.1 F Temperature Source Oral Pulse Rate [Right] 78 Respiratory Rate 15 Blood Pressure [Right Arm] 131/66 Blood Pressure Mean [Right Arm] 87 02 Sat by Pulse Oximetry 98 Oxygen Delivery Method Room Air Lab Data Lab Results 02/17/25 10:38: Urine HCG, Qual Negative Orders (Tests/Meds): ED MEDICATIONS Discontinued Medications Generic Name Dose Route Start Last Admin Trade Name Freq PRN Reason Stop Dose Admin Acetaminophen 1,000 mg 02/17/25 09:59 02/17/25 10:50 Acetaminophen 500mg Tab PO 02/17/25 10:00 1,000 mg ONCE ONE Administration ORDERS Category Date Time Status XR elbow LT min 3V Stat Exams 02/17/25 09:49 Completed XR forearm LT 2V Stat Exams 02/17/25 09:49 Completed XR humerus LT Stat Exams 02/17/25 09:49 Completed Urine , HCG Qual. Stat Lab 02/17/25 10:38 Completed Medical Decision Narrative: In summary patient is a 29-year-old female with past medical history of scrota above presents emergency department for evaluation of traumatic injury sustained in a fall. Patient is hemodynamically stable and nontoxic-appearing upon arriva l, appearing in pain, afebrile. Differential diagnosis include fracture, musculoskeletal strain, among others. Workup with respect this will be conducted with plain films. Shared decision making discussion was had of her test patient wishes to have a urine test at this time. Initial inventions include Tylenol. X-ray informally interpreted by me no acute displaced fracture. Formal read shows slight medial bowing of the distal ulna which may be consistent with fracture. Given this patient will be placed in a sling for comfort and will follow-up with Dr. Limon on an outpatient basis. Critical Care Critical Care Time Critical Care Time: No
[2025-02-17] MEDS: ACETAMINOPHEN 500MG TAB 1000 MG PO (10:50)
[2025-02-17 10:52] LABS: Urine Pregnancy, HCG Qual. Negative (Negative)
[2025-02-17 11:41] VITALS: BP 127/61; PULSE 66; RESP 15; TEMP 36.6; O2SAT 98
== END 2025-02-17 11:50 | disposition home or self-care (01) ==
PROVIDERS: Emergency Provider Emergency Medicine; PCP Nurse Practitioner Family
DX: M79.602 Pain in left arm (principal); W10.8XXA Fall (on) (from) other stairs and steps, initial encounter
CPT/HCPCS: 73060; 73080; 73090; 81025; 99283